=== PATIENT | female | born 1990 | race Caucasian/White ===

== ENCOUNTER 2016-07-15 15:34 | Emergency (ER) | payer SELFPAY ==
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
[2016-07-15] MEDS ORDERED: NEOMY SULF/POLYMYX B SULF/HC OTIC SUSP 10 ML AS ONE (17:54)
[2016-07-15] MEDS ORDERED: CEFTRIAXONE INJ 250 MG VIAL IM ONE (17:54)
[2016-07-15] MEDS ORDERED: OXYCODONE-ACETAMINOPHEN 5-325 MG TABLET PO ONE (17:55)
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
[2016-07-15] MEDS ORDERED: LIDOCAINE 1% INJ-PF (10 MG/ML) 30 ML SDV ONE (18:41)
[2016-07-15 18:55] VITALS: BP 152/89
== END 2016-07-15 18:49 | disposition home or self-care (01) ==
LOC: ER 15:34
DX: H60.392 Other infective otitis externa, left ear (principal); H92.02 Otalgia, left ear; F17.210 Nicotine dependence, cigarettes, uncomplicated; Z86.14 Personal history of Methicillin resistant Staphylococcus aureus infection; Z90.49 Acquired absence of other specified parts of digestive tract
CPT/HCPCS: 99282; J3490; J0696

== ENCOUNTER 2016-10-11 08:25 | Emergency (ER) | payer SELFPAY ==
[2016-10-11 08:31] VITALS: BP 134/94
[2016-10-11] MEDS ORDERED: AMOXICILLIN TRIHYDRATE 500 MG CAPSULE PO ONE (09:09)
[2016-10-11] MEDS ORDERED: CIPROFLOXACIN-HC OTIC SUSP 10 ML AS ONE (09:09)
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
== END 2016-10-11 09:30 | disposition home or self-care (01) ==
LOC: ER 08:25
DX: H60.502 Unspecified acute noninfective otitis externa, left ear (principal); H66.92 Otitis media, unspecified, left ear; S01.319A Laceration without foreign body of unspecified ear, initial encounter; X58.XXXA Exposure to other specified factors, initial encounter; K08.89 Other specified disorders of teeth and supporting structures; H92.03 Otalgia, bilateral; F17.210 Nicotine dependence, cigarettes, uncomplicated; Z71.6 Tobacco abuse counseling; Z91.048 Other nonmedicinal substance allergy status; Z91.040 Latex allergy status; Z86.14 Personal history of Methicillin resistant Staphylococcus aureus infection
CPT/HCPCS: 99282; J3490

== ENCOUNTER 2016-10-20 12:44 | Emergency (ER) | payer SELFPAY ==
[2016-10-20 12:51] VITALS: BP 144/109
[2016-10-20] MEDS ORDERED: OXYCODONE-ACETAMINOPHEN 5-325 MG TABLET PO ONE (13:17)
--- NOTE | 2016-10-20 13:19 | ER Document Report ---
ED Oral Problem - General Chief Complaint: Toothache Stated Complaint: FACIAL SWELLING/MOUTH PAIN Time Seen by Provider: 10/20/16 13:09 Mode of Arrival: Ambulatory Information source: Patient TRAVEL OUTSIDE OF THE [place] IN LAST 30 DAYS: No - HPI Patient complains to provider of: Swelling of face, Toothache Onset: This morning Onset: Gradual Quality of pain: Achy Severity: Moderate Pain Level: 3 Context: Fractured tooth Swollen jaw/face: Mild Associated symptoms: Dental decay, Facial pain, Jaw pain, Toothache Notes: Patient is a 25-year-old female who presents to the emergency room complaining of 2 broken teeth with pain and swelling as well as mild facial swelling that she first noted this morning, the teeth been broken for quite some time, she does report a foul taste in her mouth but no drainage, no fevers, she attempted to call [facility] but cannot get an appointment immediately and they told her to call back on Sunday to make an appointment she is currently taking amoxicillin for otitis media and Ciprodex drops for otitis externa - Related Data Allergies/Adverse Reactions: adhesive [Adhesive] Allergy (Intermediate, Verified 07/15/16 15:40) latex [Latex] Allergy (Intermediate, Verified 10/20/16 12:47) Past Medical History - General Information source: Patient - Social History Smoking Status: Current Every Day Smoker Family History: Arthritis, CAD, COPD, CVA, DM, Hyperlipidemia, Hypertension, Malignancy, Thyroid Disfunction Patient has suicidal ideation: No Patient has homicidal ideation: No Pulmonary Medical History: Reports: Hx Bronchitis, Hx Pneumonia Neurological Medical History: Reports: Hx Migraine Renal/ Medical History: Reports: Hx Ovarian Cysts. Denies: Hx Peritoneal Dialysis GI Medical History: Reports: Hx Gastroesophageal Reflux Disease Musculoskeltal Medical History: Reports Hx Musculoskeletal Deformity, Reports Hx Musculoskeletal Trauma Skin Medical History: Reports Hx Cellulitis, Reports Hx MRSA Psychiatric Medical History: Reports: Hx Anxiety, Hx Bipolar Disorder, Hx Depression, Hx Obsessive Compulsive Disorder Traumatic Medical History: Reports: Hx Fractures - correct that, Hx Traumatic Brain Injury Past Surgical History: Reports: Hx Abdominal Surgery - hernia epigastric, Hx Section - x2, Hx Cholecystectomy, Hx Dilation and Curettage, Hx Gynecologic Surgery - D&C, Hx Herniorrhaphy, Hx Inguinal Hernia, Hx Neurologic Surgery - Brain surgery for a TBI, Hx Oral Surgery - wisdom, Hx Orthopedic Surgery, Hx Tonsillectomy - Immunizations Immunizations up to date: Yes Hx Diphtheria, Pertussis, Tetanus Vaccination: No Review of Systems - Review of Systems Constitutional: No symptoms reported EENT: See HPI Cardiovascular: No symptoms reported Respiratory: No symptoms reported Gastrointestinal: No symptoms reported Genitourinary: No symptoms reported Female Genitourinary: No symptoms reported Musculoskeletal: No symptoms reported Skin: No symptoms reported Hematologic/Lymphatic: No symptoms reported Neurological/Psychological: No symptoms reported -: Yes All other systems reviewed and negative Physical Exam - Vital signs Vitals: Temp Pulse Resp BP Pulse Ox 98.4 F 102 H 18 144/109 H 90 L 10/20/16 12:48 10/20/16 12:48 10/20/16 12:48 10/20/16 12:48 10/20/16 12:48 - Notes Notes: - General General appearance: Appears well, Alert In distress: None - HEENT Head: Normocephalic, Atraumatic Eyes: Normal Conjunctiva: Normal Extraocular movements intact: Yes Eyelashes: Normal Pupils: PERRL - Respiratory Respiratory status: No respiratory distress - Cardiovascular Rhythm: Regular - Abdominal Inspection: Normal - Back Back: Normal - Extremities General upper extremity: Normal inspection General lower extremity: Normal inspection - Neurological Neuro grossly intact: Yes Orientation: AAOx4 [place] Coma Scale Eye Opening: Spontaneous [place] Coma Scale Verbal: Oriented [place] Coma Scale Motor: Obeys Commands [place] Coma Scale Total: 15 - Psychological Associated symptoms: Normal affect, Normal mood - Skin Skin Temperature: Warm Skin Moisture: Dry Skin Color: Normal - HEENT Mouth/Lips: Caries, Dental fracture Mucous membranes: Moist Teeth diagram: 1 - Dental fracture with pulp exposure, mild surrounding erythema and swelling 2 - Dental fracture, mild swelling and erythema surrounding Course - Re-evaluation Re-evalutation: 10/20/16 13:26 Patient with dental pain and likely dental infection, she was given a prescription for both penicillin and clindamycin, she was advised to fill the clindamycin prescription if she can afford it, if not for the penicillin prescription, follow-up with a dental provider or return if symptoms worsen - Vital Signs Vital signs: Temp Pulse Resp BP Pulse Ox 98.4 F 102 H 18 144/109 H 90 L 10/20/16 12:48 10/20/16 12:48 10/20/16 12:48 10/20/16 12:48 10/20/16 12:48 Discharge - Discharge Clinical Impression: Pain, dental Condition: Stable Disposition: HOME, SELF-CARE Instructions: [facility], Clindamycin ([facility]), Toothache ([facility]), Oral Narcotic Medication ([facility]), Penicillin V K ([facility]) Additional Instructions: Follow up with your primary care provider in one to 2 days. Return to the emergency room immediately if symptoms worsen or any additional concerns. Prescriptions: Clindamycin HCl [Cleocin 150 mg Capsule] 450 mg PO Q6 10 Days Oxycodone HCl/Acetaminophen [Percocet 5-325 mg Tablet] 1 - 2 tab PO ASDIR PRN # 20 tablet PRN Reason: Penicillin V Potassium [Penicillin Vk 500 mg Tablet] 500 mg PO TID #30 tablet
== END 2016-10-20 13:22 | disposition home or self-care (01) ==
LOC: ER 12:44
DX: K08.9 Disorder of teeth and supporting structures, unspecified (principal); R51 Headache; R68.84 Jaw pain; F17.200 Nicotine dependence, unspecified, uncomplicated; Z91.040 Latex allergy status; Z86.14 Personal history of Methicillin resistant Staphylococcus aureus infection; Z90.49 Acquired absence of other specified parts of digestive tract
CPT/HCPCS: 99282

== ENCOUNTER 2016-10-25 12:37 | Emergency (ER) | payer SELFPAY ==
--- NOTE | 2016-10-25 13:20 | ER Document Report ---
HPI - HPI Patient complains to provider of: left ear pain Pain Level: 3 Context: 25 yo female c/o left ear pain x 3 days. Associated Symptoms: Earache, Headache, Other - toothache Exacerbated by: Denies - ROS Systems Reviewed and Negative: Yes All other systems reviewed and negative - REPRODUCTIVE Reproductive: DENIES: : - DERM Skin Color: Normal Past Medical History - General Information source: Patient - Social History Smoking Status: Current Every Day Smoker Frequency of alcohol use: None Drug Abuse: None Lives with: Family Family History: Arthritis, CAD, COPD, CVA, DM, Hyperlipidemia, Hypertension, Malignancy, Thyroid Disfunction Patient has suicidal ideation: No Patient has homicidal ideation: No Pulmonary Medical History: Reports: Hx Bronchitis, Hx Pneumonia Neurological Medical History: Reports: Hx Migraine Renal/ Medical History: Reports: Hx Ovarian Cysts. Denies: Hx Peritoneal Dialysis GI Medical History: Reports: Hx Gastroesophageal Reflux Disease Musculoskeltal Medical History: Reports Hx Musculoskeletal Deformity, Reports Hx Musculoskeletal Trauma Skin Medical History: Reports Hx Cellulitis, Reports Hx MRSA Psychiatric Medical History: Reports: Hx Anxiety, Hx Bipolar Disorder, Hx Depression, Hx Obsessive Compulsive Disorder Traumatic Medical History: Reports: Hx Fractures - correct that, Hx Traumatic Brain Injury Past Surgical History: Reports: Hx Abdominal Surgery - hernia epigastric, Hx Section - x2, Hx Cholecystectomy, Hx Dilation and Curettage, Hx Gynecologic Surgery - D&C, Hx Herniorrhaphy, Hx Inguinal Hernia, Hx Neurologic Surgery - Brain surgery for a TBI, Hx Oral Surgery - wisdom, Hx Orthopedic Surgery, Hx Tonsillectomy - Immunizations Immunizations up to date: Yes Hx Diphtheria, Pertussis, Tetanus Vaccination: No Vertical Provider Document - CONSTITUTIONAL Agree With Documented VS: Yes - INFECTION CONTROL TRAVEL OUTSIDE OF THE [place] IN LAST 30 DAYS: No COUNTRY TRAVELED TO/FROM: [facility] - HEENT HEENT: Atraumatic Notes: left EAC edematous, erythematous with small amount purulent exudate. + painful pinna and tragus, mastoid nontender. + preauricular tenderness - NECK Neck: Normal Inspection, Supple - RESPIRATORY Respiratory: Breath Sounds Normal, No Respiratory Distress - CARDIOVASCULAR Cardiovascular: Regular Rate, Regular Rhythm - MUSCULOSKELETAL/EXTREMETIES Musculoskeletal/Extremeties: MAEW, FROM - NEURO Level of Consciousness: Awake, Alert, Appropriate - DERM Integumentary: Warm, Dry Discharge - Discharge Clinical Impression: Acute otitis externa of left ear Qualifiers: Otitis externa type: unspecified type Qualified Code(s): H60.502 - Unspecified acute noninfective otitis externa, left ear Condition: Stable Disposition: HOME, SELF-CARE Instructions: Use of Ear Drops ([facility]), Oral Narcotic Medication ([facility]) Additional Instructions: use ear drops as prescribed keep ear completely dry x 7 days follow up with primary care if symptoms persist Prescriptions: Ciprofloxacin HCl/Dexameth [Ciprodex Otic Suspension Drops] 3 drop LFT_EAR BID # 1 bottle Oxycodone HCl/Acetaminophen [Percocet 5-325 mg Tablet] 1 - 2 tab PO ASDIR PRN # 15 tablet PRN Reason:
== END 2016-10-25 13:55 | disposition home or self-care (01) ==
LOC: ER 12:37
DX: H60.502 Unspecified acute noninfective otitis externa, left ear (principal); H92.02 Otalgia, left ear; R51 Headache; K08.89 Other specified disorders of teeth and supporting structures; F17.200 Nicotine dependence, unspecified, uncomplicated
CPT/HCPCS: 99282

== ENCOUNTER 2016-11-09 19:34 | Emergency (ER) | payer SELFPAY | END 2016-11-09 20:04 | disposition left against medical advice (07) | LOC: ER 19:34 | DX: Z53.9 Procedure and treatment not carried out, unspecified reason (principal); H92.09 Otalgia, unspecified ear ==

== ENCOUNTER 2016-11-10 03:07 | Emergency (ER) | payer SELFPAY ==
--- NOTE | 2016-11-10 06:38 | ER Document Report ---
ED General - General Chief Complaint: Ear Pain Stated Complaint: EAR PAIN Time Seen by Provider: 11/10/16 06:17 Mode of Arrival: Ambulatory Information source: Patient Notes: 25 yr old female presents with chronic otitis media. Pt notes she has been seen 5 times in the past month for ear infections, , denies any fevers admits to pain , drainage. Pt noted that symptoms improve with antibiotics but then reappear. TRAVEL OUTSIDE OF THE [place] IN LAST 30 DAYS: No COUNTRY TRAVELED TO[facility]FROM: [facility] Onset: Other - 1 month duration Onset/Duration: Intermittent Quality of pain: Sharp Severity: Moderate Pain Level: 2 Associated symptoms: Earache Exacerbated by: Denies Relieved by: Denies Similar symptoms previously: Yes Recently seen / treated by doctor: Yes - Related Data Allergies/Adverse Reactions: adhesive [Adhesive] Allergy (Intermediate, Verified 10/25/16 12:48) latex [Latex] Allergy (Intermediate, Verified 10/25/16 12:48) Past Medical History - Social History Smoking Status: Current Every Day Smoker Cigarette use (# per day): Yes Chew tobacco use (# tins/day): No Smoking Education Provided: No Family History: Arthritis, CAD, COPD, CVA, DM, Hyperlipidemia, Hypertension, Malignancy, Thyroid Disfunction Patient has suicidal ideation: No Patient has homicidal ideation: No Pulmonary Medical History: Reports: Hx Bronchitis, Hx Pneumonia Neurological Medical History: Reports: Hx Migraine Renal/ Medical History: Reports: Hx Ovarian Cysts. Denies: Hx Peritoneal Dialysis GI Medical History: Reports: Hx Gastroesophageal Reflux Disease Musculoskeltal Medical History: Reports Hx Musculoskeletal Deformity, Reports Hx Musculoskeletal Trauma Skin Medical History: Reports Hx Cellulitis, Reports Hx MRSA Psychiatric Medical History: Reports: Hx Anxiety, Hx Bipolar Disorder, Hx Depression, Hx Obsessive Compulsive Disorder Traumatic Medical History: Reports: Hx Fractures - correct that, Hx Traumatic Brain Injury Past Surgical History: Reports: Hx Abdominal Surgery - hernia epigastric, Hx Section - x2, Hx Cholecystectomy, Hx Dilation and Curettage, Hx Gynecologic Surgery - D&C, Hx Herniorrhaphy, Hx Inguinal Hernia, Hx Neurologic Surgery - Brain surgery for a TBI, Hx Oral Surgery - wisdom, Hx Orthopedic Surgery, Hx Tonsillectomy - Immunizations Immunizations up to date: Yes Hx Diphtheria, Pertussis, Tetanus Vaccination: No Review of Systems - Review of Systems Notes: REVIEW OF SYSTEMS: CONSTITUTIONAL : Denies fever, chills, or sweats. Denies recent illness. EENT: Admits to bilateral ear pain drainage CARDIOVASCULAR: Denies chest pain. Denies palpitations or racing or irregular heart beat. Denies ankle edema. RESPIRATORY: Denies cough, cold, or chest congestion. Denies shortness of breath, difficulty breathing, or wheezing. GASTROINTESTINAL: Denies abdominal pain or distention. Denies nausea, vomiting , or diarrhea. Denies blood in vomitus, stools, or per rectum. Denies black, tarry stools. Denies constipation. GENITOURINARY: Denies difficulty urinating, painful urination, burning, frequency, blood in urine, or discharge. FEMALE GENITOURINARY: Denies vaginal bleeding, heavy or abnormal periods, irregular periods. Denies vaginal discharge or odor. MUSCULOSKELETAL: Denies back or neck pain or stiffness. Denies joint pain or swelling. SKIN: Denies rash, lesions or sores. HEMATOLOGIC : Denies easy bruising or bleeding. LYMPHATIC: Denies swollen, enlarged glands. NEUROLOGICAL: Denies confusion or altered mental status. Denies passing out or loss of consciousness. Denies dizziness or lightheadedness. Denies headache. Denies weakness or paralysis or loss of use of either side. Denies problems with gait or speech. Denies sensory loss, numbness, or tingling. Denies seizures. PSYCHIATRIC: Denies anxiety or stress. Denies depression, suicidal ideation, or homicidal ideation. ALL OTHER SYSTEMS REVIEWED AND NEGATIVE. PHYSICAL EXAMINATION: GENERAL: Well-appearing, well-nourished and in no acute distress. HEAD: Atraumatic, normocephalic. EYES: Pupils equal round and reactive to light, extraocular movements intact, conjunctiva are normal. ENT: Bilateral otitis media with mild swelling of the ear canals. There is drainage noted from the left TM bloody. Patient has no mastoid tenderness NECK: Normal range of motion, supple without lymphadenopathy LUNGS: Breath sounds clear to auscultation bilaterally and equal. No wheezes rales or rhonchi. HEART: Regular rate and rhythm without murmurs ABDOMEN: Soft, nontender, nondistended abdomen. No guarding, no rebound. No masses appreciated. Female : deferred Musculoskeletal: Normal range of motion, no pitting or edema. No cyanosis. NEUROLOGICAL: Cranial nerves grossly intact. Normal speech, normal gait. Normal sensory, motor exams PSYCH: Normal mood, normal affect. SKIN: Warm, Dry, normal turgor, no rashes or lesions noted. Dictation was performed using [employer] voice recognition software Physical Exam - Vital signs Vitals: Temp Pulse Resp BP Pulse Ox 98.4 F 103 H 14 149/102 H 98 11/10/16 03:10 11/10/16 03:10 11/10/16 03:10 11/10/16 03:10 11/10/16 03:10 Course - Re-evaluation Re-evalutation: 11/10/16 06:35 Pt has been on clinda, cipro, ciprodex, amoxicillin 11/10/16 06:37 Patient has been made aware that I insisted she see a ENT specialist as she continues to have these ear infections, I will give her follow-up, I will start her on a different antibiotic and pain control otherwise she must be seen by specialist to determine why she is having so many ear infections as this can lead to sepsis, septicemia, mastoiditis, brain abscesses and other life- threatening issues 11/10/16 10:27 After performing a Medical Screening Examination, I estimate there is LOW risk for CENTRAL CORD SYNDROME, EPIDURAL MASS LESION, SEVERE SPINAL STENOSIS, ARTERIAL DISSECTION, MENINGITIS, or ACUTE CORONARY SYNDROME, thus I consider the discharge disposition reasonable. I have reevaluated this patient multiple times and no significant life threatening changes are noted. The patient and I have discussed the diagnosis and risks, and we agree with discharging home to follow-up on an outpatient basis with the understanding that symptoms and presentations can change. We also discussed returning to the Emergency Department immediately if new or worsening symptoms occur. We have discussed the symptoms which are most concerning (e.g., saddle anesthesia, urinary or bowel incontinence or retention, changing or worsening pain) that necessitate immediate return. - Vital Signs Vital signs: Temp Pulse Resp BP Pulse Ox 98.4 F 89 18 145/90 H 99 11/10/16 03:10 11/10/16 06:49 11/10/16 06:49 11/10/16 06:49 11/10/16 06:49 Discharge - Discharge Clinical Impression: Otitis media Qualifiers: Otitis media type: suppurative Chronicity: chronic Laterality: bilateral Suppurative otitis media location: unspecified location Qualified Code(s): H66.3X3 - Other chronic suppurative otitis media, bilateral Ear pain Qualifiers: Laterality: bilateral Qualified Code(s): H92.03 - Otalgia, bilateral Condition: Stable Disposition: HOME, SELF-CARE Additional Instructions: Please contact the following office for an appointment tomorrow or returm immediately if there are any other concerns [facility] Address: [address] [place] [address] Prescriptions: Oxycodone HCl/Acetaminophen [Percocet 5-325 mg Tablet] 1 - 2 tab PO ASDIR PRN # 15 tablet PRN Reason: Sulfamethoxazole/Trimethoprim [Bactrim Ds Tablet] 2 each PO BID #40 tablet
[2016-11-10 06:49] VITALS: BP 145/90
== END 2016-11-10 06:49 | disposition home or self-care (01) ==
LOC: ER 03:07
DX: H66.3X3 Other chronic suppurative otitis media, bilateral (principal); H92.03 Otalgia, bilateral; F17.210 Nicotine dependence, cigarettes, uncomplicated; Z91.040 Latex allergy status; Z90.49 Acquired absence of other specified parts of digestive tract; Z87.820 Personal history of traumatic brain injury
CPT/HCPCS: 99282

== ENCOUNTER 2016-12-01 05:52 | Emergency (ER) | payer SELFPAY ==
[2016-12-01] MEDS ORDERED: IBUPROFEN 600 MG TABLET PO ONE (06:34)
--- NOTE | 2016-12-01 06:37 | ER Document Report ---
ED General Pain - General Chief Complaint: Rib Pain Stated Complaint: CHEST PAIN Time Seen by Provider: 12/01/16 06:22 Notes: Patient is a 26-year-old female, past medical history chronic pain, presents with 1 day of left lateral chest wall pain that is worse when she takes a deep breath or pushes on her chest wall. She tried 6 Gas-X pills without much relief of her symptoms. She denies shortness of breath, leg swelling, estrogen use, hemoptysis, cough, fevers, rash, nausea, vomiting or abdominal pain. TRAVEL OUTSIDE OF THE [place] IN LAST 30 DAYS: No COUNTRY TRAVELED TO/FROM: [facility] - Related Data Allergies/Adverse Reactions: adhesive [Adhesive] Allergy (Intermediate, Verified 10/25/16 12:48) latex [Latex] Allergy (Intermediate, Verified 10/25/16 12:48) Past Medical History - General Information source: Patient - Social History Smoking Status: Current Every Day Smoker Drug Abuse: Heroin Family History: Arthritis, CAD, COPD, CVA, DM, Hyperlipidemia, Hypertension, Malignancy, Thyroid Disfunction Patient has suicidal ideation: No Patient has homicidal ideation: No Pulmonary Medical History: Reports: Hx Bronchitis, Hx Pneumonia Neurological Medical History: Reports: Hx Migraine Renal/ Medical History: Reports: Hx Ovarian Cysts. Denies: Hx Peritoneal Dialysis GI Medical History: Reports: Hx Gastroesophageal Reflux Disease Musculoskeltal Medical History: Reports Hx Musculoskeletal Deformity, Reports Hx Musculoskeletal Trauma Skin Medical History: Reports Hx Cellulitis, Reports Hx MRSA Psychiatric Medical History: Reports: Hx Anxiety, Hx Bipolar Disorder, Hx Depression, Hx Obsessive Compulsive Disorder Traumatic Medical History: Reports: Hx Fractures - correct that, Hx Traumatic Brain Injury Past Surgical History: Reports: Hx Abdominal Surgery - hernia epigastric, Hx Section - x2, Hx Cholecystectomy, Hx Dilation and Curettage, Hx Gynecologic Surgery - D&C, Hx Herniorrhaphy, Hx Inguinal Hernia, Hx Neurologic Surgery - Brain surgery for a TBI, Hx Oral Surgery - wisdom, Hx Orthopedic Surgery, Hx Tonsillectomy - Immunizations Immunizations up to date: Yes Hx Diphtheria, Pertussis, Tetanus Vaccination: No Review of Systems - Review of Systems Notes: REVIEW OF SYSTEMS: CONSTITUTIONAL: -fevers, -chills EENT: -eye pain, -difficulty swallowing, -nasal congestion CARDIOVASCULAR: +chest pain, -syncope. RESPIRATORY: -cough, -SOB GASTROINTESTINAL: -abdominal pain, - nausea, -vomiting, -diarrhea GENITOURINARY: -dysuria, -hematuria MUSCULOSKELETAL: -back pain, -neck pain SKIN: -rash or skin lesions. HEMATOLOGIC: -easy bruising or bleeding. LYMPHATIC: -swollen, enlarged glands. NEUROLOGICAL: -altered mental status or loss of consciousness, -headache, - neurologic symptoms PSYCHIATRIC: -anxiety, -depression. ALL OTHER SYSTEMS REVIEWED AND NEGATIVE. Physical Exam - Vital signs Vitals: Temp Pulse Resp BP Pulse Ox 97.9 F 87 20 125/75 99 12/01/16 05:54 12/01/16 05:54 12/01/16 05:54 12/01/16 05:54 12/01/16 05:54 - Notes Notes: PHYSICAL EXAMINATION: GENERAL: Well-appearing, well-nourished and in no acute distress. HEAD: Atraumatic, normocephalic. EYES: Pupils equal round and reactive to light, extraocular movements intact, sclera anicteric, conjunctiva are normal. ENT: nares patent, oropharynx clear without exudates. Moist mucous membranes. NECK: Normal range of motion, supple without lymphadenopathy LUNGS: Breath sounds clear to auscultation bilaterally and equal. No wheezes rales or rhonchi. HEART: Regular rate and rhythm without murmurs. Tenderness over left lateral chest wall. ABDOMEN: Soft, nontender, normoactive bowel sounds. No guarding, no rebound. No masses appreciated. EXTREMITIES: Normal range of motion, no pitting or edema. No cyanosis. NEUROLOGICAL: Cranial nerves grossly intact. Normal speech, normal gait. Normal sensory and motor exams. PSYCH: Normal mood, normal affect. SKIN: Warm, Dry, normal turgor, no rashes or lesions noted. Course - Re-evaluation Re-evalutation: Pt is PERC negative. HEART score is 1. X-ray and EKG did not show any concerning abnormalities. Symptoms consistent with chest wall strain at this time. Given strict instructions to follow-up with her primary care physician and return if any worsening pain. - Vital Signs Vital signs: Temp Pulse Resp BP Pulse Ox 97.9 F 87 20 125/75 99 12/01/16 05:54 12/01/16 05:54 12/01/16 05:54 12/01/16 05:54 12/01/16 05:54 - Diagnostic Test Radiology reviewed: Image reviewed, Reports reviewed Radiology results interpreted by me: CXR: NAD - EKG Interpretation by Me EKG shows normal: Sinus rhythm, [place], Intervals, QRS Complexes, ST-T Waves Rate: Normal Discharge - Discharge Clinical Impression: Chest pain Qualifiers: Chest pain type: unspecified Qualified Code(s): R07.9 - Chest pain, unspecified Chest wall muscle strain Qualifiers: Encounter type: initial encounter Qualified Code(s): S29.011A - Strain of muscle and tendon of front wall of thorax, initial encounter Condition: Stable Disposition: HOME, SELF-CARE Additional Instructions: CHEST PAIN OF UNCLEAR CAUSE: The exact cause of your chest pain isn't clear. Fortunately, there is no evidence of a dangerous medical condition. Further testing may be required to find the source of the pain. Most often, we find that this pain is coming from the chest wall -- the muscles or rib joints in the chest. But chest pain can come from the lung and lung lining, the esophagus, the heart valves or heart lining, and even the stomach or gallbladder. Rest. Eat lightly until the pain is gone. We may prescribe medicine for pain and inflammation. You should call the physician immediately if the pain radiates to the shoulder, jaw or arms; if you start to run a fever or develop a cough; or if you develop shortness of breath, or other new or alarming symptoms. NORMAL EXAM AND WORKUP: At this time, your examination and workup show no significant abnormality. No significant abnormal physical findings were noted. All laboratory, EKG, and imaging (x-ray, CT scans, ultrasound) studies that were ordered show no significant abnormality. Although your examination and all studies that were ordered showed no significant abnormal finding, there are no examinations and no studies that are 100% accurate. There is always the possibility that some abnormality could exist and not be detected with physical examination or within the limits and capabilities of laboratory and other studies. You should return or follow up as you were instructed on your visit today for further evaluation if your symptoms do not resolve. CHEST WALL PAIN: Your chest pain may be coming from the chest wall. This is often caused by straining the muscles or joints in the chest during physical activity, direct trauma, coughing, or vigorous vomiting. Persons with arthritis are especially prone to this type of pain, due to inflammation of the cartilage joints near the breast bone. Occasionally, no cause can be found. Rest from strenuous physical activity. This kind of chest pain is usually made worse by movement of the chest. Depending on the symptoms, we may prescribe medicine for pain, muscle relaxation, and antiinflammatory effects. If the pain is new, and seems to be due to muscle strain, cold packs can help. Otherwise, apply gentle warmth to the painful area for 15 minutes every hour or two. You should call contact the doctor immediately if things change. Further evaluation is needed if you develop a fever or cough, if the nature of the pain changes, or if you become short of breath. ACID REFLUX DISEASE (GERD): Gastro-Esophageal Reflux Disease (GERD) is caused by stomach acid refluxing back up into the esophagus. The valve at the end of the esophagus may be weak. This is common in persons with a hiatal hernia. GERD symptoms can include indigestion, chest pain, heartburn, or food "sticking." Certain foods, alcohol, and aspirin can make GERD worse. Treatment depends on the severity. Usually, antacids or acid-suppressing medicines are used. When the esophagus is acutely inflamed, the physician will often prescribe membrane-protective drugs such as Carafate. Some patients benefit from medication such as Reglan that tightens the valve at the top of the stomach. Avoid those foods that bring on your symptoms. For many people, these foods are coffee, chocolate, onions, garlic, and carbonated drinks. Don't use alcohol, aspirin, caffeine, or tobacco. Don't eat late at night -- within 4 hours of bedtime. Don't over-eat. If necessary, elevate the head of your bed about 4 inches so that stomach acid will not roll up into your esophagus. Call the doctor if you develop severe chest pain, inability to swallow fluids, fever, or worsening symptoms. FOLLOW-UP CARE: If you have been referred to a physician for follow-up care, call the physician s office for an appointment as you were instructed or within the next two days. If you experience worsening or a significant change in your symptoms, notify the physician immediately or return to the Emergency Department at any time for re-evaluation.
--- NOTE | 2016-12-01 07:55 | RADIOLOGY REPORT (SQ) ---
EXAM DESCRIPTION: CHEST PA/LAT COMPLETED DATE/TIME: 12/01/2016 7:40 am REASON FOR STUDY: pain with deep breath COMPARISON: 04/29/2015 EXAM PARAMETERS: NUMBER OF VIEWS: two views TECHNIQUE: Digital Frontal and Lateral radiographic views of the chest acquired. RADIATION DOSE: NA LIMITATIONS: none FINDINGS: LUNGS AND PLEURA: No opacities, masses or pneumothorax. No pleural effusion. MEDIASTINUM AND HILAR STRUCTURES: No masses or contour abnormalities. HEART AND VASCULAR STRUCTURES: Heart normal size. No evidence for failure. BONES: No acute findings. HARDWARE: None in the chest. OTHER: No other significant finding. IMPRESSION: NO SIGNIFICANT RADIOGRAPHIC FINDING IN THE CHEST. TECHNICAL DOCUMENTATION: JOB ID: [id number] [employer]- All Rights Reserved
[2016-12-01 08:11] VITALS: BP 113/76
--- NOTE | 2016-12-01 12:19 | EKG REPORT ---
SEVERITY:- NORMAL ECG - SINUS RHYTHM : Confirmed by: Krissy Burt MD 01-Dec-2016 12:19:12
== END 2016-12-01 08:11 | disposition home or self-care (01) ==
LOC: ER 05:52
DX: S29.011A Strain of muscle and tendon of front wall of thorax, initial encounter (principal); X58.XXXA Exposure to other specified factors, initial encounter; F17.200 Nicotine dependence, unspecified, uncomplicated; Z87.01 Personal history of pneumonia (recurrent); Z82.49 Family history of ischemic heart disease and other diseases of the circulatory system; Z91.048 Other nonmedicinal substance allergy status; Z91.040 Latex allergy status
CPT/HCPCS: 71020; 93005; 93010; 99284

== ENCOUNTER 2016-12-12 09:19 | Inpatient (IN) | payer SELFPAY ==
[2016-12-12] MEDS ORDERED: CLINDAMYCIN 600 MG/D5W RTU 50 ML IV ONE (09:55)
[2016-12-12] MEDS ORDERED: ACETAMINOPHEN 325 MG TABLET PO ONE (09:55)
--- NOTE | 2016-12-12 09:57 | ER Document Report ---
HPI - HPI Patient complains to provider of: hand pain Onset: Yesterday Onset/Duration: Gradual Quality of pain: Sharp Pain Level: 3 Context: Patient presents complaining of dental pain for the past 3 days. Patient also reports right hand and wrist pain with swelling that started yesterday. Patient denies any fever. Patient states that she does shoot heroin up and last injected into her hand 10 days ago. Pt is newly diagnosed as and suspects she is approximately 6 wks along. Patient denies any fever. Associated Symptoms: Other - r hand pain and swelling, dental pain. denies: Fever Exacerbated by: Movement Relieved by: Denies Similar symptoms previously: Yes - dental pain Recently seen / treated by doctor: No - ROS ROS below otherwise negative: Yes Systems Reviewed and Negative: Yes All other systems reviewed and negative - CONSTITUTIONAL Constitutional: DENIES: Fever, Chills - EENT Notes: dental pain - CARDIOVASCULAR Cardiovascular: DENIES: Chest pain - RESPIRATORY Respiratory: DENIES: Trouble Breathing, Coughing - GASTROINTESTINAL Gastrointestinal: DENIES: Abdominal Pain, Nausea, Patient vomiting - REPRODUCTIVE Reproductive: DENIES: : - MUSCULOSKELETAL Musculoskeletal: REPORTS: Extremity pain, Swelling - DERM Skin Color: Erythema Skin Problems: Puncture Wound - multiple puncture wounds to dorsal aspect of right hand and to right antecubital area <ALIZE MONTES - Last Filed: 12/12/16 16:52> Past Medical History - General Information source: Patient Last Menstrual Period: preg ?6 wks - Social History Smoking Status: Current Every Day Smoker Frequency of alcohol use: None Drug Abuse: Cocaine, Heroin Occupation: none Family History: Arthritis, CAD, COPD, CVA, DM, Hyperlipidemia, Hypertension, Malignancy, Thyroid Disfunction Patient has suicidal ideation: No Pulmonary Medical History: Reports: Hx Bronchitis, Hx Pneumonia Neurological Medical History: Reports: Hx Migraine Endocrine Medical History: Denies: Hx Diabetes Mellitus Type 1, Hx Diabetes Mellitus Type 2 Renal/ Medical History: Reports: Hx Ovarian Cysts. Denies: Hx Peritoneal Dialysis GI Medical History: Reports: Hx Gastroesophageal Reflux Disease Musculoskeltal Medical History: Reports Hx Musculoskeletal Deformity, Reports Hx Musculoskeletal Trauma Skin Medical History: Reports Hx Cellulitis, Reports Hx MRSA Psychiatric Medical History: Reports: Hx Anxiety, Hx Bipolar Disorder, Hx Depression, Hx Obsessive Compulsive Disorder Traumatic Medical History: Reports: Hx Fractures - correct that, Hx Traumatic Brain Injury Infectious Medical History: Reports: Hx Hepatitis - ?hep c Past Surgical History: Reports: Hx Section - x2, Hx Cholecystectomy, Hx Dilation and Curettage, Hx Gynecologic Surgery - D&C, Hx Herniorrhaphy, Hx Inguinal Hernia, Hx Neurologic Surgery - Brain surgery for a TBI, Hx Oral Surgery - wisdom, Hx Orthopedic Surgery, Hx Tonsillectomy - Immunizations Immunizations up to date: Yes Hx Diphtheria, Pertussis, Tetanus Vaccination: No <ALIZE MONTES - Last Filed: 12/12/16 16:52> Vertical Provider Document - CONSTITUTIONAL Agree With Documented VS: Yes Exam Limitations: No Limitations General Appearance: WD/WN, No Apparent Distress - INFECTION CONTROL TRAVEL OUTSIDE OF THE [place] IN LAST 30 DAYS: No COUNTRY TRAVELED TO/FROM: [facility] HEENT: Normocephalic. negative: Pharyngeal Exudate, Pharyngeal Tenderness, Pharyngeal Erythema, Tympanic Membrane Red, Tympanic Membrane Bulging Mouth Diagram: 1 - dental decay, pointing small abscess to gingiva Notes: scaring to forehead from previous head trauma - NECK Neck: Normal Inspection, Supple. negative: Lymphadenopathy-Left, Lymphadenopathy-Right - RESPIRATORY Respiratory: Breath Sounds Normal, No Respiratory Distress, Chest Non-Tender - CARDIOVASCULAR Cardiovascular: Regular Rate, Regular Rhythm, No Murmur Pulses: Normal: Radial - BACK Back: Normal Inspection - MUSCULOSKELETAL/EXTREMETIES Musculoskeletal/Extremeties: Tender - right hand, right wrist tenderness with overlying erythema. Pt holding right wrist slightly flexed in a position of comfort., Edema - 2+edema to r wrist. negative: Eccymosis Notes: Scarring to the medial aspect of the left upper extremity - NEURO Level of Consciousness: Awake, Alert, Appropriate Motor/Sensory: No Motor Deficit - DERM Integumentary: Warm, Dry Notes: erythema and warmth overlying the dorsal aspect of right hand extending up her distal forearm and to radial, volar aspect of right wrist. Pt with multiple track schilling to dorsal aspect of right hand and right antecubital area <ALIZE MONTES - Last Filed: 12/12/16 16:52> Course - Vital Signs Vital signs: Temp Pulse Resp BP Pulse Ox 98.4 F 88 18 132/84 H 98 12/12/16 09:27 12/12/16 09:27 12/12/16 09:27 12/12/16 09:27 12/12/16 09:27 - Laboratory Result Diagrams: 12/12/16 10:30 12/12/16 10:30 Laboratory results interpreted by me: 12/12/16 10:30 Sodium 136.2 L <PAUL CABRERA - Last Filed: 12/12/16 11:44> - Re-evaluation Re-evalutation: 12/12/16 11:[address] cabrera, dr cabrera to bedside. Recommends joint aspiration and likely admission vs transfer based on results of joint aspiration and ortho coverage 12/12/16 11:47 Dr Cabrera to bedside, right wrist joint aspiration attempted, unable to obtain synovial fluid aspiration. Advises transfer to facility with orthopedic coverage, as we will have no ortho coverage until 12/18/16. 12/12/16 12:[address] Jose Manuel Ramirez coronary clinical specialist at [facility] who agrees to accept patient for transfer. Recommends ER to ER transfer. Report given to Dr. Alvarado in the emergency department. Transfer center advises that Dr. Alvarado page Dr. Ramirez once patient presents to the ER. 12/12/16 12:45 Dr Cabrera states that there was an email requesting all ortho transfers to be discussed with hospitalist as well as faculty administrator regional coordinator prior to transfer. Call placed to hospital faculty administrator regional coordinator, David Antonio, to discuss plan for orthopedic transfer. David Antonio [facility] so pt may be treated appropriately. 12/12/16 12:[address] Benedict, agrees that pt needs to be transferred to a facility that has orthopedic coverage on, especially given that there will be no orthopedic coverage here until 12/18/16 per hospital plating operator. 12/12/16 13:10 attempted to have plating operator contact Dr Rivera (who is not presently regional coordinator). [employer] Helper states there was no answer on cell, he is not in the OR or his office today. Dr Cabrera agrees with plan for transfer. 12/12/16 13:45 Dr Rivera returned call stating that he picked up today and tomorrow call shifts and is regional coordinator. Dr Rivera advises mri of extremity and wants called back with results. Dr Rivera states that results of MRI will determine if pt is an orthopedic or hospitalist admission. Dr Rivera states he will notify plating operator of call schedule changes. paper conservator and Dr Cabrera updated. Pt does not need to be NPO at this time. 12/12/16 16:00 Results of patient's MRI test with Dr. Rivera, patient is having hospitalist admit patient and he will consult on patient. Recommends IV antibiotics at this time. consulted with dr Benedict who advises consultation with Dr Jesus for admission 12/12/16 16:[address] Jesus who agrees to accept pt for admission - Laboratory Result Diagrams: 12/12/16 10:30 12/12/16 10:30 Laboratory results interpreted by me: 12/12/16 13:12 Labs- Entire Visit 12/12/16 12/12/16 10:30 10:30 WBC 7.2 RBC 4.71 Hgb 13.8 Hct 41.4 MCV 88 MCH 29.3 MCHC 33.4 RDW 12.7 Plt Count 153 Seg Neutrophils % 72.3 Lymphocytes % 21.2 Monocytes % 5.5 Eosinophils % 0.7 Basophils % 0.3 Absolute Neutrophils 5.2 Absolute Lymphocytes 1.5 Absolute Monocytes 0.4 Absolute Eosinophils 0.1 Absolute Basophils 0.0 Sodium 136.2 L Potassium 4.5 Chloride 106 Carbon Dioxide 22 Anion Gap 8 BUN 8 Creatinine 0.58 Est GFR ( Amer) > 60 Est GFR (Non-Af Amer) > 60 Glucose 96 Calcium 8.9 Total Bilirubin 0.6 Direct Bilirubin 0.4 Indirect Bilirubin Not Reportable Neonat Total Bilirubin Not Reportable AST 17 ALT 23 Alkaline Phosphatase 58 Total Protein 6.8 Albumin 3.8 12/12/16 16:16 Labs- Entire Visit 12/12/16 12/12/16 10:30 10:30 WBC 7.2 RBC 4.71 Hgb 13.8 Hct 41.4 MCV 88 MCH 29.3 MCHC 33.4 RDW 12.7 Plt Count 153 Seg Neutrophils % 72.3 Lymphocytes % 21.2 Monocytes % 5.5 Eosinophils % 0.7 Basophils % 0.3 Absolute Neutrophils 5.2 Absolute Lymphocytes 1.5 Absolute Monocytes 0.4 Absolute Eosinophils 0.1 Absolute Basophils 0.0 Sodium 136.2 L Potassium 4.5 Chloride 106 Carbon Dioxide 22 Anion Gap 8 BUN 8 Creatinine 0.58 Est GFR ( Amer) > 60 Est GFR (Non-Af Amer) > 60 Glucose 96 Calcium 8.9 Total Bilirubin 0.6 Direct Bilirubin 0.4 Indirect Bilirubin Not Reportable Neonat Total Bilirubin Not Reportable AST 17 ALT 23 Alkaline Phosphatase 58 Total Protein 6.8 Albumin 3.8 - Diagnostic Test Radiology reviewed: Reports reviewed <ALIZE MONTES - Last Filed: 12/12/16 16:52> Procedures - Joint Aspiration Right Wrist Time completed: 11:40 - unable to aspirate any synovial fluid. pt prepped sterilely. tried to enter jnt dorsally from ulnar aspect but pt unable to deviate hand to radial side to open jnt. after multiple attempts terminated procedure. 4cc's of plain lido was used. Consent obtained: Yes Joint aspiration pre-procedure: Betadine prep applied Anesthetic type: 1% Lidocaine mL's of anesthetic: 4 Needle size: 25 Number of attempts: 2 Complications: No <PAUL CABRERA - Last Filed: 12/12/16 11:44> - Incision and Drainage Left Type: Simple Incision Method: Incision made with needle Amount/type of drainage: mod amount of purulent drainage from gingival abscess Mouth/Teeth picture: 1 - gingival abscess- site of I&D <ALIZE MONTES - Last Filed: 12/12/16 16:52> Discharge <PAUL CABRERA - Last Filed: 12/12/16 11:44> - Discharge Admitting Provider: Hospitalist Unit Admitted: Medical Floor <ALIZE MONTES - Last Filed: 12/12/16 16:52> - Discharge Clinical Impression: Cellulitis of hand, Cellulitis of wrist, Dental abscess, IV drug user Condition: Stable
[2016-12-12 10:52] LABS: ABSOLUTE EOSINOPHILS # (AUTO) 0.1 10^3/uL (0.0-0.6); ABSOLUTE LYMPHOCYTES (AUTO) 1.5 10^3/uL (0.5-4.7); ABSOLUTE MONOCYTES (AUTO) 0.4 10^3/uL (0.1-1.4); ABSOLUTE NEUT (AUTO) 5.2 10^3/uL (1.7-8.2); BASOPHILS % (AUTO) 0.3 % (0-2); EOSINOPHILS % (AUTO) 0.7 % (0-6); HEMATOCRIT 41.4 % (36.0-47.0); HEMOGLOBIN 13.8 g/dL (12.0-15.5); LYMPHOCYTES % (AUTO) 21.2 % (13-45); MEAN CORPUSCULAR HEMOGLOBIN 29.3 pg (27.0-33.4); MEAN CORPUSCULAR HGB CONC 33.4 g/dL (32.0-36.0); MEAN CORPUSCULAR VOLUME 88 fl (80-97); MONOCYTES % (AUTO) 5.5 % (3-13); RED BLOOD COUNT 4.71 10^6/uL (3.72-5.28); RED CELL DISTRIBUTION WIDTH 12.7 % (11.5-14.0); SEGMENTED NEUTROPHILS % (AUTO) 72.3 % (42-78); WHITE BLOOD COUNT 7.2 10^3/uL (4.0-10.5)
[2016-12-12 11:06] LABS: ALANINE AMINOTRANSFERASE 23 U/L (9-52); ALBUMIN 3.8 g/dL (3.5-5.0); ALKALINE PHOSPHATASE 58 U/L (38-126); ANION GAP 8 (5-19); ASPARTATE AMINO TRANSFERASE 17 U/L (14-36); BILIRUBIN,DIRECT 0.4 mg/dL (0.0-0.4); BILIRUBIN,TOTAL 0.6 mg/dL (0.2-1.3); BLOOD UREA NITROGEN 8 mg/dL (7-20); CALCIUM 8.9 mg/dL (8.4-10.2); CARBON DIOXIDE 22 mmol/L (22-30); CHLORIDE 106 mmol/L (98-107); CREATININE RESULT 0.58 mg/dL (0.52-1.25); GLUCOSE 96 mg/dL (75-110); POTASSIUM 4.5 mmol/L (3.6-5.0); SODIUM 136.2 mmol/L (137-145); TOTAL PROTEIN 6.8 g/dL (6.3-8.2)
[2016-12-12] MEDS ORDERED: LIDOCAINE 1% INJ-PF (10 MG/ML) 30 ML SDV INJ ONE (11:15)
--- NOTE | 2016-12-12 15:50 | RADIOLOGY REPORT (SQ) ---
EXAM DESCRIPTION: MRI RT UPPER EXTREMITY WITHOUT COMPLETED DATE/TIME: 12/12/2016 3:20 pm REASON FOR STUDY: cellulitis r hand/wrist, hx iv drug use COMPARISON: None. TECHNIQUE: Multiplanar imaging of the right distal forearm and wrist to include T1-weighted, STIR we ighted, and T2-weighted images. CONTRAST TYPE AND DOSE: None given RENAL FUNCTION: Not required LIMITATIONS: None. FINDINGS: BONE MARROW: No marrow signal alteration. Specifically no marrow replacement or marrow ed caroline. No evidence for osteomyelitis. No cortical break through. SOFT TISSUES: There is subcutaneous edema throughout the dorsum of the hand and wrist extending proxi jenni the level of the distal 3rd right forearm. In the forearm, edema tracks in the tissue planes b etween the abductors pollicis longus, extensor pollicis longus and extensor digitorum muscles, withou t abnormal intramuscular signal or abscess. Patient had a wrist joint aspiration attempted in the emergency room. There is fluid in the tendon s heaths of the extensor digitorum, extensor indicis, and extensor pollicis tendons which could be rela ricky to injection of lidocaine for the joint aspiration, or could be related to tendon sheath inflamma tion/infection OTHER: No other significant finding. IMPRESSION: No bony marrow signal abnormality worrisome for osteomyelitis. No significant wrist joint effusion. Diffuse cellulitis in the soft tissues of the dorsum of the hand extending to the distal 3rd of the f orearm There is fluid in the tendon sheaths of the extensor digitorum, extensor indicis, and extensor pollic is tendons. This could be related to tendon sheath inflammation/infection, or could be artifact from lidocaine injected for wrist joint aspiration TECHNICAL DOCUMENTATION: JOB ID: [id number] [employer]- All Rights Reserved
[2016-12-12] MEDS ORDERED: AMPICILLIN SOD/SULBACTAM 1.5 GM VIAL IV SCH (17:30)
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
[2016-12-12] MEDS: CLINDAMYCIN 600 MG/D5W RTU 600 MG/50 ML RTUPB IV SCH (18:12)
[2016-12-12 19:51] LABS: ADD ON TESTING BLD IN LAB ACKNOWLEDGE
[2016-12-12 20:12] LABS: MAGNESIUM 2.1 mg/dL (1.6-2.3)
[2016-12-12] MEDS: AMPICILLIN SODIUM/SULBACTAM NA 1.5 GM in NORMAL SALINE 100 ML IV SCH (20:12)
[2016-12-12] MEDS: ACETAMINOPHEN 325 MG TABLET PO PRN (20:13)
--- NOTE | 2016-12-12 20:13 | PDOC CONSULTATION ---
Consultation Consult Date: 12/12/16 Consult reason:: Positive Test History of Present Illness Admission Date/PCP: 12/12/16 17:07 26yo with LMP of 10/23/2016. Pt admitted to hospital for IV Abx for Right hand cellulitus secondary to IV drug use. Pt had a positive preg test on admission No vaginal bleeding or pelvic pain Past Medical History LMP: Gynecological Infection: No Obstetrical History: none 1 Weeks: 40 Delivery: : Low Cervical, Transverse 2 Weeks: 39 Delivery: : Low Cervical, Transverse Pulmonary Medical History: Reports: Bronchitis, Pneumonia Neurological Medical History: Reports: Migraine Endocrine Medical History: Denies: Diabetes Mellitus Type 1, Diabetes Mellitus Type 2 GI Medical History: Reports: Gastroesophageal Reflux Disease, Hepatitis - ?hep c Psychiatric Medical History: Reports: Bipolar Disorder, Depression Traumatic Medical History: Reports: Traumatic Brain Injury Social History Information Source: Patient Smoking Status: Current Every Day Smoker Cigarettes Packs Per Day: 10 Number of Years Smokin Last Time Smoked: 12/12/16 Frequency of Alcohol Use: Social Hx Recreational Drug Use: Yes Drugs: Cocaine Hx Prescription Drug Abuse: No - Advance Directive Resuscitation Status: Full Code Family History Family History: Reviewed & Not Pertinent, Arthritis, CAD, COPD, CVA, DM, Hyperlipidemia, Hypertension, Malignancy, Thyroid Disfunction Parental Family History Reviewed: Yes Children Family History Reviewed: Yes Sibling(s) Family History Reviewed.: Yes Medication/Allergy Home Medications: Pnv No.122/Iron/Folic Acid [ Multi Tablet] 1 each PO DAILY 12/12/16 Allergies/Adverse Reactions: adhesive [Adhesive] Allergy (Intermediate, Verified 12/12/16 09:27) latex [Latex] Allergy (Intermediate, Verified 12/12/16 09:27) Review of Systems All systems: reviewed and no additional remarkable complaints except as stated Physical Exam - Physical Exam Vital Signs: Temp Pulse Resp BP Pulse Ox 98.0 F 84 16 104/73 100 12/12/16 18:36 12/12/16 18:36 12/12/16 18:36 12/12/16 18:36 12/12/16 18:36 General appearance: PRESENT: no acute distress, cooperative GI/Abdominal exam: PRESENT: normal bowel sounds, soft - Nontender Abdomen Result Impressions: Upper Extremity MRI 12/12/16 13:52 IMPRESSION: No bony marrow signal abnormality worrisome for osteomyelitis. No significant wrist joint effusion. Diffuse cellulitis in the soft tissues of the dorsum of the hand extending to the distal 3rd of the forearm There is fluid in the tendon sheaths of the extensor digitorum, extensor indicis , and extensor pollicis tendons. This could be related to tendon sheath inflammation/infection, or could be artifact from lidocaine injected for wrist joint aspiration Assessment & Plan - Diagnosis (1) Cellulitis of hand Is this a current diagnosis for this admission?: Yes (2) Cellulitis of wrist Is this a current diagnosis for this admission?: Yes (3) IV drug user Is this a current diagnosis for this admission?: Yes (4) Qualifiers: Weeks of gestation: less than 8 weeks Qualified Code(s): Z3A.01 - Less than 8 weeks gestation of Is this a current diagnosis for this admission?: Yes - Time Time Spent: 30 to 50 Minutes Medications reviewed and adjusted accordingly: Yes Anticipated discharge: Home with Homehealth Within: Other - Will obtain a Beta HCG and OB ultrasound Pt to f/u with HD upon discharge from hospital
[2016-12-12 20:50] LABS: URINE BARBITURATES SCREEN NEGATIVE; URINE METHADONE SCREEN NEGATIVE; URINE PHENCYCLIDINE SCREEN NEGATIVE
[2016-12-12 20:58] LABS: URINE OPIATES LOW UNCONFIRMED POSITIVE
[2016-12-12] MEDS ORDERED: MAG HYDROX/AL HYDROX/SIMETH SUSP 30 ML UDCUP PO PRN (22:42)
[2016-12-12] MEDS: PROMETHAZINE HCL 25 MG TABLET PO PRN (22:56)
[2016-12-13] MEDS: CLINDAMYCIN 600 MG/D5W RTU 600 MG/50 ML RTUPB IV SCH ×3 (01:29→17:29)
[2016-12-13] MEDS: ACETAMINOPHEN 325 MG TABLET PO PRN ×5 (01:37→22:27)
[2016-12-13] MEDS: AMPICILLIN SODIUM/SULBACTAM NA 1.5 GM in NORMAL SALINE 100 ML IV SCH ×2 (02:45→08:02)
--- NOTE | 2016-12-13 07:14 | RADIOLOGY REPORT (SQ) ---
EXAM DESCRIPTION: U/S OB TRANSVAGINAL W/O DOP COMPLETED DATE/TIME: 12/13/2016 6:43 am REASON FOR STUDY: Ultrasound for dating COMPARISON: None. TECHNIQUE: Transvaginal static and realtime grayscale images acquired of the pelvis. Additional bismark cted spectral and color Doppler images recorded. All images stored on PACs. bHCG: Not available. LIMITATIONS: None. FINDINGS: UTERUS: No masses. No anomalies. GESTATIONAL SAC: Yes. If viable, mean sac diameter 0.9 cm was corresponds with a gestational age of 5 weeks and 5 days an JACIEL of 08/10/2017. YOLK SAC: Possible. POLE: No. RIGHT ADNEXA: Normal ovary with normal vascular flow. No adnexal free fluid. 4.6 cm with likely 2.1 cm corpus luteal cyst. LEFT ADNEXA: Normal ovary with normal vascular flow. No adnexal free fluid. No adnexal masses. 3.0 cm. FREE FLUID: None. OTHER: No other significant finding. Cervical length: 3.4 cm. IMPRESSION: POSSIBLE EARLY INTRAUTERINE gestational sac. No pole and no cardiac activity iden tified at this time. Questionable yolk sac identified. CONSIDER 48-72 hr surveillance BHCG AND/OR ULTRASOUND FOR VERIFICATION AND TO EXCLUDE ECTOPIC PREGNAN CY. Trimester of : First - 0 to 13 weeks. TECHNICAL DOCUMENTATION: JOB ID: [id number] [employer]- All Rights Reserved
[2016-12-13] MEDS ORDERED: MAG HYDROX/AL HYDROX/SIMETH SUSP 30 ML UDCUP PO PRN (12:48)
[2016-12-13] MEDS: AMPICILLIN SODIUM/SULBACTAM NA 1.5 GM in NORMAL SALINE 50 ML IV SCH ×2 (14:29→20:52)
--- NOTE | 2016-12-13 14:39 | PDOC PROGRESS REPORT ---
Subjective Progress Note for:: 12/13/16 Subjective:: Feeling better today. Edema on hand is less as well as the redness. Ortho evaluated her and no surgery is necessary at this time. No diarrhea, chills nor temp.spikes. Physical Exam Vital Signs: Temp Pulse Resp BP Pulse Ox 98.6 F 70 16 132/66 H 100 12/13/16 11:51 12/13/16 11:51 12/13/16 11:51 12/13/16 11:51 12/13/16 11:51 Intake & Output 12/12/16 12/13/16 12/14/16 06:59 06:59 06:59 Intake Total 400 Output Total 250 Balance 150 Weight 92.7 kg General appearance: PRESENT: no acute distress, cooperative Head exam: PRESENT: normocephalic Eye exam: PRESENT: EOMI Mouth exam: PRESENT: moist, neck supple Neck exam: ABSENT: JVD Respiratory exam: PRESENT: clear to auscultation zach. ABSENT: rhonchi, wheezes Cardiovascular exam: PRESENT: RRR GI/Abdominal exam: PRESENT: normal bowel sounds, soft Extremities exam: PRESENT: +1 edema - right hand and forearm but less. Tenderness less. Redness resolved. Neurological exam: PRESENT: alert, awake, oriented to situation Skin exam: PRESENT: dry, warm. ABSENT: cyanosis Results Impressions: Upper Extremity MRI 12/12/16 13:52 IMPRESSION: No bony marrow signal abnormality worrisome for osteomyelitis. No significant wrist joint effusion. Diffuse cellulitis in the soft tissues of the dorsum of the hand extending to the distal 3rd of the forearm There is fluid in the tendon sheaths of the extensor digitorum, extensor indicis , and extensor pollicis tendons. This could be related to tendon sheath inflammation/infection, or could be artifact from lidocaine injected for wrist joint aspiration Obstetrics Ultrasound 12/13/16 00:00 IMPRESSION: POSSIBLE EARLY INTRAUTERINE gestational sac. No pole and no cardiac activity identified at this time. Questionable yolk sac identified. CONSIDER 48-72 hr surveillance BHCG AND/OR ULTRASOUND FOR VERIFICATION AND TO EXCLUDE ECTOPIC . Trimester of : First - 0 to 13 weeks. Assessment & Plan - Diagnosis (1) Cellulitis of hand Is this a current diagnosis for this admission?: Yes (2) Cellulitis of wrist Is this a current diagnosis for this admission?: Yes (3) IV drug user Is this a current diagnosis for this admission?: Yes (4) Qualifiers: Weeks of gestation: less than 8 weeks Qualified Code(s): Z3A.01 - Less than 8 weeks gestation of Is this a current diagnosis for this admission?: Yes (5) Dental caries Is this a current diagnosis for this admission?: Yes - Time Time Spent with patient: 15-24 minutes - Plan Summary Plan Summary: Cont. antibiotics. Follow cultures. Possible D/C in am if she continues to improve.
[2016-12-14] MEDS: CLINDAMYCIN 600 MG/D5W RTU 600 MG/50 ML RTUPB IV SCH (02:22)
[2016-12-14] MEDS: ACETAMINOPHEN 325 MG TABLET PO PRN (02:36)
[2016-12-14] MEDS: AMPICILLIN SODIUM/SULBACTAM NA 1.5 GM in NORMAL SALINE 50 ML IV SCH ×2 (05:05→09:13)
[2016-12-14] MEDS: PROMETHAZINE HCL 25 MG TABLET PO PRN (05:45)
--- NOTE | 2016-12-14 05:56 | PDOC CONSULTATION ---
Consultation Consult Date: 12/13/16 Consult reason:: follow up on OB sono History of Present Illness Admission Date/PCP: 12/12/16 17:10 Patient complains of: currently having some light brown vaginal spotting History of Present Illness: KAUSHAL INFANTE is a 26 year old female, with no significant past medical history other than intravenous drug abuse came to the emergency room because of pain and swelling with associated redness on the right hand and forearm. There is associated sweating and sensation of warm but no definite fever. Denies having any chills as well. Patient reportedly injects cocaine on a chronic habit and the last time she used it was a week and half ago where she injected the drug on her right hand and wrist. She eventually found that she was and so she denies using it more recently. Patient reports that she found not being at about the same time she used cocaine a week and half ago. Past Medical History LMP: Gynecological Infection: No Obstetrical History: none Pulmonary Medical History: Reports: Bronchitis, Pneumonia Neurological Medical History: Reports: Migraine Endocrine Medical History: Denies: Diabetes Mellitus Type 1, Diabetes Mellitus Type 2 GI Medical History: Reports: Gastroesophageal Reflux Disease, Hepatitis - ?hep c Psychiatric Medical History: Reports: Bipolar Disorder, Depression Traumatic Medical History: Reports: Traumatic Brain Injury Social History Smoking Status: Current Every Day Smoker Cigarettes Packs Per Day: 10 Number of Years Smokin Last Time Smoked: 12/12/16 Frequency of Alcohol Use: None Hx Recreational Drug Use: Yes Drugs: Cocaine Hx Prescription Drug Abuse: No - Advance Directive Resuscitation Status: Full Code Family History Family History: Arthritis, CAD, COPD, CVA, DM, Hyperlipidemia, Hypertension, Malignancy, Thyroid Disfunction Parental Family History Reviewed: No Children Family History Reviewed: No Sibling(s) Family History Reviewed.: No Medication/Allergy Home Medications: Pnv No.122/Iron/Folic Acid [ Multi Tablet] 1 each PO DAILY 12/12/16 Allergies/Adverse Reactions: adhesive [Adhesive] Allergy (Intermediate, Verified 12/12/16 09:27) latex [Latex] Allergy (Intermediate, Verified 12/12/16 09:27) Physical Exam - Physical Exam Vital Signs: Temp Pulse Resp BP Pulse Ox 98.8 F 73 18 117/61 100 12/14/16 04:39 12/14/16 04:39 12/14/16 04:39 12/14/16 04:39 12/14/16 04:39 Intake & Output 12/12/16 12/13/16 12/14/16 06:59 06:59 06:59 Intake Total 400 Output Total 250 Balance 150 Weight 92.7 kg 93.3 kg Result Impressions: Upper Extremity MRI 12/12/16 13:52 IMPRESSION: No bony marrow signal abnormality worrisome for osteomyelitis. No significant wrist joint effusion. Diffuse cellulitis in the soft tissues of the dorsum of the hand extending to the distal 3rd of the forearm There is fluid in the tendon sheaths of the extensor digitorum, extensor indicis , and extensor pollicis tendons. This could be related to tendon sheath inflammation/infection, or could be artifact from lidocaine injected for wrist joint aspiration Obstetrics Ultrasound 12/13/16 00:00 IMPRESSION: POSSIBLE EARLY INTRAUTERINE gestational sac. No pole and no cardiac activity identified at this time. Questionable yolk sac identified. CONSIDER 48-72 hr surveillance BHCG AND/OR ULTRASOUND FOR VERIFICATION AND TO EXCLUDE ECTOPIC . Trimester of : First - 0 to 13 weeks. Assessment & Plan - Plan Summary Plan Summary: d/w patient results of ob sono that are inconclusive for viable . recommend repeating sono in 1-2 weeks and if has not progressed would recommend interventions at that time for medical vs surgical options to treat missed . d/w patient that at this time, cannot assure that will progress normally.
--- NOTE | 2016-12-14 11:15 | PDOC DISCHARGE SUMMARY ---
General - Admit/Disc Date/PCP Admission Date/Primary Care Provider: 12/12/16 17:10 Discharge Date: 12/14/16 - Discharge Diagnosis (1) Cellulitis of hand Is this a current diagnosis for this admission?: Yes (2) Cellulitis of wrist Is this a current diagnosis for this admission?: Yes (3) IV drug user Is this a current diagnosis for this admission?: Yes (4) Is this a current diagnosis for this admission?: Yes (5) Dental caries Is this a current diagnosis for this admission?: Yes - Additional Information Resuscitation Status: Full Code Discharge Diet: Regular Discharge Activity: Activity As Tolerated, Balance Activity w/Rest Home Medications: Pnv No.122/Iron/Folic Acid [ Multi Tablet] 1 each PO DAILY 12/12/16 Acetaminophen [Tylenol 325 mg Tablet] 650 mg PO Q4HP PRN tablet 12/14/16 Amoxicillin/Potassium Clav [Augmentin 875-125 Tablet] 1 each PO BID #24 tablet 12/14/16 Clindamycin HCl 300 mg PO Q6H #48 capsule 12/14/16 Additional Information: Stop cocaine, return to ER if symptoms worsens or with bleeding History of Present Illness Patient complains of: Pain and swelling on RUE History of Present Illness: KAUSHAL INFANTE is a 26 year old female, with no significant past medical history other than intravenous drug abuse came to the emergency room because of pain and swelling with associated redness on the right hand and forearm. There is associated sweating and sensation of warm but no definite fever. Denies having any chills as well. Patient reportedly injects cocaine on a chronic habit and the last time she used it was a week and half ago where she injected the drug on her right hand and wrist. She eventually found that she was and so she denies using it more recently. Patient reports that she found not being at about the same time she used cocaine a week and half ago. Hospital Course Hospital Course: The patient was admitted to [facility]. IV antibiotics were started. Consultation w/ Dr. Rivera was made as well as with Dr. Wilson. Dr. Rivera evaluated the patient and reportedly no surgical intervention necessary and continue antibiotics. Dr. Wilson obtained pelvic US but viability was not established. On OBGYN follow-up, Dr. Reaves recommended follow-up US in 1 week to check viability of . Patients culture were negative. Swelling on the forearm, wrist and hand improved as well as the redness and tenderness. Pt able to move fingers more compared during admission. She requested to be discharged and continue tx out-patient. The rest of the hospital stay was unremarkable.She was advised to see her dentist for her caries. Physical Exam Vital Signs: Temp Pulse Resp BP Pulse Ox 98.2 F 74 16 120/64 100 12/14/16 08:06 12/14/16 08:06 12/14/16 08:06 12/14/16 08:06 12/14/16 08:06 Intake & Output 12/13/16 12/14/16 12/15/16 06:59 06:59 06:59 Intake Total 400 Output Total 250 Balance 150 Weight 92.7 kg 93.3 kg General appearance: PRESENT: no acute distress, cooperative Head exam: PRESENT: normocephalic Eye exam: PRESENT: EOMI Mouth exam: PRESENT: moist, neck supple Neck exam: ABSENT: JVD Respiratory exam: PRESENT: clear to auscultation zach Cardiovascular exam: PRESENT: RRR GI/Abdominal exam: PRESENT: normal bowel sounds, soft. ABSENT: distended Extremities exam: PRESENT: other - R hand and wrist/forearm swelling less. ABSENT: pedal edema Neurological exam: PRESENT: alert, awake, oriented to person, oriented to place , oriented to time, oriented to situation Skin exam: PRESENT: dry, erythema - on RUE resolved., warm. ABSENT: cyanosis Results Impressions: Upper Extremity MRI 12/12/16 13:52 IMPRESSION: No bony marrow signal abnormality worrisome for osteomyelitis. No significant wrist joint effusion. Diffuse cellulitis in the soft tissues of the dorsum of the hand extending to the distal 3rd of the forearm There is fluid in the tendon sheaths of the extensor digitorum, extensor indicis , and extensor pollicis tendons. This could be related to tendon sheath inflammation/infection, or could be artifact from lidocaine injected for wrist joint aspiration Obstetrics Ultrasound 12/13/16 00:00 IMPRESSION: POSSIBLE EARLY INTRAUTERINE gestational sac. No pole and no cardiac activity identified at this time. Questionable yolk sac identified. CONSIDER 48-72 hr surveillance BHCG AND/OR ULTRASOUND FOR VERIFICATION AND TO EXCLUDE ECTOPIC . Trimester of : First - 0 to 13 weeks. Qualifiers PATEINT BEING DISCHARGED WITH ANY OF THE FOLLOWING DIAGNOSIS?: No Plan Discharge Plan: Follow up w/ primary physician in 1 week. Follow-up w/ OBGYN in 1 week. Time Spent: Less than 30 Minutes
[2016-12-14 12:13] VITALS: BP 135/76
== END 2016-12-14 12:25 | disposition home or self-care (01) | DRG 781 ==
LOC: ER 09:19 → EEVIPCON 17:07 → EH 17:07 → UNDOADMIN 17:07 → EH 17:10 → 2N 18:28 → EH 18:28
PROC: 0RJN3ZZ Inspection of Right Wrist Joint, Percutaneous Approach (ICD-10-PCS; principal; 2016-12-12)
PROC: 0C96XZZ Drainage of Lower Gingiva, External Approach (ICD-10-PCS; 2016-12-12)
DX: O26.891 Other specified pregnancy related conditions, first trimester (principal); L03.113 Cellulitis of right upper limb; O99.321 Drug use complicating pregnancy, first trimester; F11.10 Opioid abuse, uncomplicated; F14.10 Cocaine abuse, uncomplicated; O99.611 Diseases of the digestive system complicating pregnancy, first trimester; K02.9 Dental caries, unspecified; O99.331 Smoking (tobacco) complicating pregnancy, first trimester; F17.210 Nicotine dependence, cigarettes, uncomplicated; O34.219 Maternal care for unspecified type scar from previous cesarean delivery; N85.8 Other specified noninflammatory disorders of uterus; O99.341 Other mental disorders complicating pregnancy, first trimester; F31.9 Bipolar disorder, unspecified; M79.641 Pain in right hand; Z3A.01 Less than 8 weeks gestation of pregnancy; Z87.820 Personal history of traumatic brain injury
CPT/HCPCS: 36415; 76817; 80053; 80307; 83735; 84702; 84703; 85025; 87040; 96365; 99285; J0295; J3490

== ENCOUNTER → 2016-12-20 | Outpatient (CLI) | payer MEDICAID | LOC: OCH 16:00 | PROVIDERS: ATTEND Nurse Practitioner Women's Health | DX: O02.1 Missed abortion (principal) | CPT/HCPCS: 36415; 84702 ==

== ENCOUNTER → 2016-12-20 | Outpatient (CLI) | payer MEDICAID ==
--- NOTE | 2016-12-22 15:57 | RADIOLOGY REPORT (SQ) ---
EXAM DESCRIPTION: U/S 1TRIMESTER/1GEST W/DOPPLER COMPLETED DATE/TIME: 12/20/2016 3:59 pm REASON FOR STUDY: Missed AB COMPARISON: none TECHNIQUE: Transabdominal pelvic ultrasound was performed including select Doppler imaging saved to pac's. LIMITATIONS: A FINDINGS: Transabdominal pelvic ultrasound. The uterus is 9.8 x 7.8 x 4.2 cm in size. In the fundal endometrial canal, an intrauterine gestation al sac is present with a 6 week 2 day embryo by crown-rump length measurements. Embryo cardiac activ ity 123 beats per minute. Yolk sac identified. No free pelvic fluid. Right ovary 3 x 2.8 x 1.8 cm in size, left ovary 2.1 x 1.8 x 1.6 cm in size. Cervix closed, 2.4 cm in length. No subchorionic hemorrhage. No free pelvic cul-de-sac fluid. IMPRESSION: Living 6 week 2 day IUP,, embryo cardiac activity 123 beats per minute. Estimated due d ate August 13 2017
== END ==
LOC: RAD 14:50
PROVIDERS: ATTEND Nurse Practitioner Women's Health
DX: O02.1 Missed abortion (principal)
CPT/HCPCS: 76801; 93976

== ENCOUNTER 2016-12-21 19:13 | Emergency (ER) | payer MEDICAID ==
[2016-12-21 19:34] VITALS: BP 124/70
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
[2016-12-21 23:39] LABS: ABSOLUTE EOSINOPHILS # (AUTO) 0.1 10^3/uL (0.0-0.6); ABSOLUTE LYMPHOCYTES (AUTO) 1.8 10^3/uL (0.5-4.7); ABSOLUTE MONOCYTES (AUTO) 0.4 10^3/uL (0.1-1.4); ABSOLUTE NEUT (AUTO) 4.7 10^3/uL (1.7-8.2); BASOPHILS % (AUTO) 0.5 % (0-2); EOSINOPHILS % (AUTO) 1.7 % (0-6); HEMATOCRIT 37.2 % (36.0-47.0); HEMOGLOBIN 12.7 g/dL (12.0-15.5); HGB HCT DIFFERENCE 0.9; LYMPHOCYTES % (AUTO) 25.9 % (13-45); MEAN CORPUSCULAR HEMOGLOBIN 29.2 pg (27.0-33.4); MEAN CORPUSCULAR HGB CONC 34.1 g/dL (32.0-36.0); MEAN CORPUSCULAR VOLUME 86 fl (80-97); MONOCYTES % (AUTO) 5.1 % (3-13); RED BLOOD COUNT 4.34 10^6/uL (3.72-5.28); RED CELL DISTRIBUTION WIDTH 12.4 % (11.5-14.0); SEGMENTED NEUTROPHILS % (AUTO) 66.8 % (42-78)
[2016-12-21 23:40] LABS: AMORPHOUS SEDIMENT,URINE TRACE /HPF; APPEARANCE,URINE CLOUDY; BILIRUBIN,URINE NEGATIVE (NEGATIVE); GLUCOSE, URINE NEGATIVE (NEGATIVE); KETONES,URINE NEGATIVE (NEGATIVE); LEUKOCYTE ESTERASE,URINE MODERATE (NEGATIVE); NITRITE,URINE NEGATIVE (NEGATIVE); PROTEIN,URINE 100 mg/dL (NEGATIVE); URINE SPECIFIC GRAVITY 1.014; UROBILINOGEN,URINE NEGATIVE mg/dL (<2.0)
[2016-12-22] MEDS ORDERED: CEFTRIAXONE 1 GM/D5W RTU 1 GM/50 ML RTUPB IV ONE (01:07)
[2016-12-22] MEDS ORDERED: CEPHALEXIN 500 MG CAPSULE PO ONE (01:14)
[2016-12-22] MEDS ORDERED: ONDANSETRON ODT 4 MG TAB (6 TAB/DSPK) PO PRN (01:51)
--- NOTE | 2016-12-25 11:24 | RADIOLOGY REPORT (SQ) ---
EXAM DESCRIPTION: U/S OB TRANSVAG W/DOPPLER COMPLETED DATE/TIME: 12/22/2016 12:09 am REASON FOR STUDY: VAG BLEED, PREG COMPARISON: None. LIMITATIONS: None. FINDINGS: Transvaginal sonogram demonstrates a 10 cm uterus containing an intrauterine gestational s ac and fetus measuring 0.8 cm in crown-rump length corresponding with a gestational age of 6 weeks an d 6 days, JACIEL 08/10/2017, with cardiac activity of 123 beats per minute. Yolk sac is identified. 1.1 cm subchorionic hemorrhage. 3.7 cm right ovary, 3.2 cm left ovary, 3.0 cm cervical length appear otherwise unremarkable. IMPRESSION: Live intrauterine fetus with gestational age 6 weeks and 6 days, JACIEL 08/10/2017, at-risk w ith 1.1 cm subchorionic hemorrhage. Recommend 48-72 hours laboratory/sonographic surveillance. TECHNICAL DOCUMENTATION: JOB ID: [id number] [employer] All Rights Reserved
== END 2016-12-22 02:03 | disposition home or self-care (01) ==
LOC: ER 19:13
DX: O23.41 Unspecified infection of urinary tract in pregnancy, first trimester (principal); O20.8 Other hemorrhage in early pregnancy; O99.89 Other specified diseases and conditions complicating pregnancy, childbirth and the puerperium; M54.9 Dorsalgia, unspecified; Z3A.01 Less than 8 weeks gestation of pregnancy; Z87.442 Personal history of urinary calculi; Z91.048 Other nonmedicinal substance allergy status; Z91.040 Latex allergy status; Z87.42 Personal history of other diseases of the female genital tract
CPT/HCPCS: 36415; 76817; 81001; 84702; 85025; 86900; 86901; 87086; 87088; 87186; 93976; 99284

== ENCOUNTER → 2016-12-22 | Outpatient (CLI) | payer MEDICAID | LOC: OCH 12:53 | DX: O02.1 Missed abortion (principal) | CPT/HCPCS: 36415; 84702 ==

== ENCOUNTER → 2016-12-26 | Outpatient (CLI) | payer MEDICAID | LOC: OCH 16:46 | DX: O02.1 Missed abortion (principal) | CPT/HCPCS: 36415; 84702 ==

== ENCOUNTER → 2016-12-28 | Outpatient (CLI) | payer MEDICAID ==
--- NOTE | 2016-12-28 17:20 | RADIOLOGY REPORT (SQ) ---
EXAM DESCRIPTION: U/S [id number] TRNABD 1GES W/ODOP COMPLETED DATE/TIME: 12/28/2016 4:56 pm REASON FOR STUDY: ENCOUNTER FOR SUPERVISION OF OTHER NORMAL Z34.81 ENCOUNTER FOR SUPRVSN OF NORMAL , FIRST TRIM COMPARISON: OB ultrasound 12/13/2016 TECHNIQUE: Endovaginal static and realtime grayscale images acquired of the pelvis. Additional selec ricky spectral and color Doppler images recorded. All images stored on PACs. bHCG: Not available LIMITATIONS: None. FINDINGS: FETUS: Living intrauterine . EGA: 7 weeks 5 days JACIEL: 08/11/2017 FHR: 153 beats per minute. SUBCHORIONIC BLEED: Yes, SIZE OF BLEED: 2.3 x 0.8 cm in size. UTERUS: No masses. No anomalies. Uterus measures 11 x 6 x 5 cm in size. CERVICAL LENGTH: 3 cm in length Closed. RIGHT ADNEXA: Not visualized due to adnexal bowel gas LEFT ADNEXA: Not visualized due to adnexal bowel gas FREE FLUID: None. OTHER: No other significant finding. IMPRESSION: LIVING INTRAUTERINE . EGA 7 weeks 5 days. Lower uterine segment small subchorionic hemorrhage. Cervix closed. Trimester of : First - 0 to 13 weeks. TECHNICAL DOCUMENTATION: JOB ID: [id number] [employer]- All Rights Reserved
== END ==
LOC: RAD 15:54
PROVIDERS: ATTEND Nurse Practitioner Women's Health
DX: Z34.81 Encounter for supervision of other normal pregnancy, first trimester (principal)
CPT/HCPCS: 36415; 76801; 84702

== ENCOUNTER 2017-01-26 20:16 | Emergency (ER) | payer MEDICAID ==
[2017-01-26] MEDS ORDERED: ONDANSETRON 4 MG TAB.RAPDIS PO ONE (21:21)
[2017-01-26 21:56] LABS: ABSOLUTE LYMPHOCYTES (AUTO) 1.6 10^3/uL (0.5-4.7); ABSOLUTE MONOCYTES (AUTO) 0.3 10^3/uL (0.1-1.4); ABSOLUTE NEUT (AUTO) 7.9 10^3/uL (1.7-8.2); BASOPHILS % (AUTO) 0.2 % (0-2); EOSINOPHILS % (AUTO) 0.3 % (0-6); HEMATOCRIT 37.1 % (36.0-47.0); HEMOGLOBIN 12.9 g/dL (12.0-15.5); HGB HCT DIFFERENCE 1.6; LYMPHOCYTES % (AUTO) 15.9 % (13-45); MEAN CORPUSCULAR HEMOGLOBIN 29.3 pg (27.0-33.4); MEAN CORPUSCULAR HGB CONC 34.7 g/dL (32.0-36.0); MEAN CORPUSCULAR VOLUME 85 fl (80-97); MONOCYTES % (AUTO) 3.5 % (3-13); RED BLOOD COUNT 4.38 10^6/uL (3.72-5.28); RED CELL DISTRIBUTION WIDTH 13.4 % (11.5-14.0); SEGMENTED NEUTROPHILS % (AUTO) 80.1 % (42-78); WHITE BLOOD COUNT 9.8 10^3/uL (4.0-10.5)
[2017-01-26 22:06] LABS: ALANINE AMINOTRANSFERASE 28 U/L (9-52); ALKALINE PHOSPHATASE 49 U/L (38-126); ANION GAP 11 (5-19); ASPARTATE AMINO TRANSFERASE 18 U/L (14-36); BILIRUBIN,DIRECT 0.3 mg/dL (0.0-0.4); BILIRUBIN,TOTAL 0.6 mg/dL (0.2-1.3); BLOOD UREA NITROGEN 10 mg/dL (7-20); CALCIUM 9.8 mg/dL (8.4-10.2); CARBON DIOXIDE 20 mmol/L (22-30); CHLORIDE 106 mmol/L (98-107); CREATININE RESULT 0.44 mg/dL (0.52-1.25); GLUCOSE 84 mg/dL (75-110); POTASSIUM 3.8 mmol/L (3.6-5.0); SODIUM 137.4 mmol/L (137-145); TOTAL PROTEIN 6.6 g/dL (6.3-8.2)
--- NOTE | 2017-01-26 22:23 | RADIOLOGY REPORT (SQ) ---
EXAM DESCRIPTION: U/S 1TRIMESTER/1GEST W/DOPPLER COMPLETED DATE/TIME: 01/26/2017 10:12 pm REASON FOR STUDY: vaginal bleeding COMPARISON: 12/21/2016 TECHNIQUE: Transabdominal static and realtime grayscale images acquired of the pelvis. Additional se lected spectral and color Doppler images recorded. All images stored on PACs. bHCG: Not available. LIMITATIONS: None. FINDINGS: FETUS: Living intrauterine . EGA: 12 weeks 4 days JACIEL: 08/06/2017 FHR: 160 beats per minute. SUBCHORIONIC BLEED: No. SIZE OF BLEED: Not applicable. UTERUS: No masses. No anomalies. CERVICAL LENGTH: 2.4 cm. Closed. RIGHT ADNEXA: Ovary not identified. No adnexal free fluid. No adnexal masses. LEFT ADNEXA: Normal ovary with normal vascular flow. No adnexal free fluid. No adnexal masses. FREE FLUID: None. OTHER: No other significant finding. IMPRESSION: LIVING INTRAUTERINE . EGA 12 WEEKS 4 DAYS. APPROPRIATE GROWTH FROM PRIOR ULTRASOUND. Trimester of : First - 0 to 13 weeks. TECHNICAL DOCUMENTATION: JOB ID: [id number] [employer]- All Rights Reserved
[2017-01-26 22:25] LABS: APPEARANCE,URINE SLIGHTLY-CLOUDY; BILIRUBIN,URINE NEGATIVE (NEGATIVE); GLUCOSE, URINE NEGATIVE (NEGATIVE); KETONES,URINE NEGATIVE (NEGATIVE); LEUKOCYTE ESTERASE,URINE TRACE (NEGATIVE); NITRITE,URINE NEGATIVE (NEGATIVE); PROTEIN,URINE NEGATIVE (NEGATIVE); URINE SPECIFIC GRAVITY 1.025
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
[2017-01-26] MEDS ORDERED: ONDANSETRON ODT 4 MG TAB (6 TAB/DSPK) PO PRN (22:58)
[2017-01-26 23:04] VITALS: BP 115/67
[2017-01-26 23:50] LABS: CHLAM PCR NOT DETECTED (NOT DETECT)
== END 2017-01-26 23:04 | disposition home or self-care (01) ==
LOC: ER 20:16
DX: O26.851 Spotting complicating pregnancy, first trimester (principal); O21.9 Vomiting of pregnancy, unspecified; O26.891 Other specified pregnancy related conditions, first trimester; R25.2 Cramp and spasm; O99.331 Smoking (tobacco) complicating pregnancy, first trimester; Z11.3 Encounter for screening for infections with a predominantly sexual mode of transmission; Z3A.12 12 weeks gestation of pregnancy; Z91.048 Other nonmedicinal substance allergy status; Z91.040 Latex allergy status
CPT/HCPCS: 99284; 36415; 84702; 85025; 80053; 81001; 87491; 87591; 76801; 93976; S0119

== ENCOUNTER 2017-03-16 14:35 | Emergency (ER) | payer MEDICAID ==
[2017-03-16] MEDS ORDERED: NALOXONE HCL INJ 2 MG/2 ML DISP.SYRIN IV ONE (15:07)
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
[2017-03-16] MEDS ORDERED: NALOXONE HCL INJ 2 MG/2 ML DISP.SYRIN IM ONE (15:59)
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
[2017-03-16 16:21] LABS: APPEARANCE,URINE SLIGHTLY-CLOUDY; BILIRUBIN,URINE NEGATIVE (NEGATIVE); GLUCOSE, URINE 50 mg/dL (NEGATIVE); KETONES,URINE NEGATIVE (NEGATIVE); LEUKOCYTE ESTERASE,URINE NEGATIVE (NEGATIVE); NITRITE,URINE NEGATIVE (NEGATIVE); PROTEIN,URINE 100 mg/dL (NEGATIVE); URINE SPECIFIC GRAVITY 1.012
[2017-03-16 16:35] LABS: URINE BARBITURATES SCREEN NEGATIVE; URINE METHADONE SCREEN NEGATIVE; URINE OPIATES LOW UNCONFIRMED POSITIVE; URINE PHENCYCLIDINE SCREEN NEGATIVE
[2017-03-16 17:52] VITALS: BP 110/61
[2017-03-16 18:00] LABS: ABSOLUTE LYMPHOCYTES (AUTO) 1.1 10^3/uL (0.5-4.7); ABSOLUTE MONOCYTES (AUTO) 0.2 10^3/uL (0.1-1.4); ABSOLUTE NEUT (AUTO) 4.2 10^3/uL (1.7-8.2); BASOPHILS % (AUTO) 0.2 % (0-2); EOSINOPHILS % (AUTO) 0.6 % (0-6); HEMATOCRIT 39.3 % (36.0-47.0); HEMOGLOBIN 13.7 g/dL (12.0-15.5); HGB HCT DIFFERENCE 1.8; LYMPHOCYTES % (AUTO) 20.3 % (13-45); MEAN CORPUSCULAR HEMOGLOBIN 28.9 pg (27.0-33.4); MEAN CORPUSCULAR HGB CONC 34.8 g/dL (32.0-36.0); MEAN CORPUSCULAR VOLUME 83 fl (80-97); MONOCYTES % (AUTO) 4.2 % (3-13); RED BLOOD COUNT 4.74 10^6/uL (3.72-5.28); RED CELL DISTRIBUTION WIDTH 13.6 % (11.5-14.0); SEGMENTED NEUTROPHILS % (AUTO) 74.7 % (42-78); WHITE BLOOD COUNT 5.6 10^3/uL (4.0-10.5)
[2017-03-16 18:24] LABS: ALANINE AMINOTRANSFERASE 39 U/L (9-52); ALBUMIN 3.6 g/dL (3.5-5.0); ALKALINE PHOSPHATASE 72 U/L (38-126); ANION GAP 14 (5-19); ASPARTATE AMINO TRANSFERASE 22 U/L (14-36); BILIRUBIN,DIRECT 0.2 mg/dL (0.0-0.4); BILIRUBIN,TOTAL 0.3 mg/dL (0.2-1.3); BLOOD UREA NITROGEN 4 mg/dL (7-20); CALCIUM 9.1 mg/dL (8.4-10.2); CARBON DIOXIDE 22 mmol/L (22-30); CHLORIDE 107 mmol/L (98-107); CREATININE RESULT 0.47 mg/dL (0.52-1.25); GLUCOSE 100 mg/dL (75-110); POTASSIUM 3.4 mmol/L (3.6-5.0); TOTAL PROTEIN 6.3 g/dL (6.3-8.2)
== END 2017-03-16 19:00 | disposition home or self-care (01) ==
LOC: ER 14:35
DX: T40.1X1A Poisoning by heroin, accidental (unintentional), initial encounter (principal); O9A.212 Injury, poisoning and certain other consequences of external causes complicating pregnancy, second trimester; S09.93XA Unspecified injury of face, initial encounter; O99.332 Smoking (tobacco) complicating pregnancy, second trimester; Z3A.19 19 weeks gestation of pregnancy; Y92.410 Unspecified street and highway as the place of occurrence of the external cause; Z91.040 Latex allergy status
CPT/HCPCS: 99291; 96372; 51701; 36415; 85025; 80053; 81001; 80307; 70450; 72125; J2310

== ENCOUNTER 2017-04-25 09:06 | Emergency (ER) | payer MEDICAID ==
[2017-04-25 09:15] VITALS: BP 123/72
[2017-04-25] MEDS ORDERED: LIDOCAINE 2% VISCOUS SOLN 20 ML UDCUP PO ONE (09:46)
[2017-04-25] MEDS ORDERED: PENICILLIN V POTASSIUM 500 MG TABLET PO ONE (09:46)
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
== END 2017-04-25 10:07 | disposition home or self-care (01) ==
LOC: ER 09:06
DX: K02.9 Dental caries, unspecified (principal); K08.89 Other specified disorders of teeth and supporting structures; Z3A.26 26 weeks gestation of pregnancy; F17.210 Nicotine dependence, cigarettes, uncomplicated
CPT/HCPCS: 99282; J3490 ×2

== ENCOUNTER 2017-05-07 22:10 | Emergency (ER) | payer MEDICAID ==
[2017-05-07] MEDS ORDERED: LIDOCAINE 2% JELLY 5 ML TUBE TOP ONE (22:49)
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
== END 2017-05-07 23:05 | disposition home or self-care (01) ==
LOC: ER 22:10
DX: O22.40 Hemorrhoids in pregnancy, unspecified trimester (principal); O99.320 Drug use complicating pregnancy, unspecified trimester; F11.10 Opioid abuse, uncomplicated; Z3A.00 Weeks of gestation of pregnancy not specified; Z91.040 Latex allergy status; Z91.048 Other nonmedicinal substance allergy status
CPT/HCPCS: 99283; J3490

== ENCOUNTER 2017-06-12 16:12 | Outpatient (CLI) | payer MEDICAID ==
[2017-06-12 17:04] LABS: AMNISURE (ROM) NEGATIVE (NEGATIVE)
[2017-06-12 17:34] LABS: APPEARANCE,URINE SLIGHTLY-CLOUDY; BILIRUBIN,URINE SMALL (NEGATIVE); COLOR,URINE AMBER; GLUCOSE, URINE NEGATIVE (NEGATIVE); KETONES,URINE NEGATIVE (NEGATIVE); LEUKOCYTE ESTERASE,URINE MODERATE (NEGATIVE); NITRITE,URINE NEGATIVE (NEGATIVE); PROTEIN,URINE 30 mg/dL (NEGATIVE); URINE SPECIFIC GRAVITY 1.034
[2017-06-12 17:46] LABS: URINE AMPHETAMINES SCREEN NEGATIVE; URINE BARBITURATES SCREEN NEGATIVE; URINE BENZODIAZEPINES SCREEN NEGATIVE; URINE MARIJUANA (THC) SCREEN NEGATIVE; URINE METHADONE SCREEN NEGATIVE; URINE PHENCYCLIDINE SCREEN NEGATIVE
[2017-06-12 17:55] LABS: URINE COCAINE SCREEN UNCONFIRMED POSITIVE
== END 2017-06-12 17:51 | disposition home or self-care (01) ==
LOC: LC 16:12
PROVIDERS: ATTEND Obstetrics & Gynecology Gynecology
PROC: 4A1HXCZ Monitoring of Products of Conception, Cardiac Rate, External Approach (ICD-10-PCS; principal; 2017-06-12)
DX: O36.8130 Decreased fetal movements, third trimester, not applicable or unspecified (principal); O47.03 False labor before 37 completed weeks of gestation, third trimester; Z3A.31 31 weeks gestation of pregnancy
CPT/HCPCS: 59899; 84112; 36415; 81001; 80307; 80353; 80361; G0480

== ENCOUNTER 2017-06-27 07:01 | Outpatient (CLI) | payer MEDICAID ==
[2017-06-27 07:45] LABS: AMNISURE (ROM) NEGATIVE (NEGATIVE)
[2017-06-27 08:06] LABS: APPEARANCE,URINE SLIGHTLY-CLOUDY; BILIRUBIN,URINE NEGATIVE (NEGATIVE); CALCIUM OXALATE CRYSTALS,URINE FEW /HPF; GLUCOSE, URINE 50 mg/dL (NEGATIVE); KETONES,URINE NEGATIVE (NEGATIVE); LEUKOCYTE ESTERASE,URINE SMALL (NEGATIVE); NITRITE,URINE NEGATIVE (NEGATIVE); PROTEIN,URINE 30 mg/dL (NEGATIVE); URINE SPECIFIC GRAVITY 1.034
[2017-06-27 08:07] LABS: COLOR,URINE DARK YELLOW
[2017-06-27 08:20] LABS: URINE AMPHETAMINES SCREEN NEGATIVE; URINE BARBITURATES SCREEN NEGATIVE; URINE BENZODIAZEPINES SCREEN NEGATIVE; URINE MARIJUANA (THC) SCREEN NEGATIVE; URINE METHADONE SCREEN NEGATIVE; URINE PHENCYCLIDINE SCREEN NEGATIVE
[2017-06-27 08:24] LABS: URINE COCAINE SCREEN UNCONFIRMED POSITIVE
--- NOTE | 2017-06-27 09:31 | Non Stress Test Report ---
Non Stress Test Datetime Report Generated by CPN: 06/27/2017 09:30 DEMOGRAPHIC EGA NST: 33.2 INDICATION Indication for Study: Ordered by Provider Indication for Study (NST) Other: lc MONITORING Monitor Explained: Monitor Explained; Test Explained; Patient Verbalized Understanding Time on Monitor: 06/27/2017 07:33 Time off Monitor: 06/27/2017 08:55 Time off Monitor: 06/27/2017 08:59 NST Duration: 82 NST INTERVENTIONS NST Interventions: PO Hydration; Reposition Patient NST Interventions: PO Hydration; Reposition Patient Physician Notified NST: A Richter CNM BABY A: [id number] BABY A Movement : Present Contraction Frequency : 0 FHR Baseline : 135 FHR Baseline : 135 Accelerations : 15X15 Decelerations : None Decelerations : Early Variability : Moderate 6-25bpm NST Review: Meets Criteria for Reactive NST NST Review and Verified By : Dorota Mendez [facility] NST Results: Reactive NST REPORT Report Trigger: Send Report
[2017-07-03 07:15] LABS: COCAINE METABOLITE CONFIRM UR Positive (.)
== END 2017-06-27 09:39 | disposition home or self-care (01) ==
LOC: LC 07:01
PROVIDERS: ATTEND Obstetrics & Gynecology
PROC: 4A1HXCZ Monitoring of Products of Conception, Cardiac Rate, External Approach (ICD-10-PCS; principal; 2017-06-27)
DX: O26.893 Other specified pregnancy related conditions, third trimester (principal); E86.0 Dehydration; Z3A.33 33 weeks gestation of pregnancy
CPT/HCPCS: 59025; 84112; 36415; 81001; 80307; 80353; 80361; G0480

== ENCOUNTER 2017-07-18 07:08 | Emergency (ER) | payer MEDICAID ==
[2017-07-18 07:15] VITALS: BP 145/86
[2017-07-18] MEDS ORDERED: AMOXICILLIN TRIHYDRATE 500 MG CAPSULE PO ONE (08:14)
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
== END 2017-07-18 08:25 | disposition left against medical advice (07) ==
LOC: ER 07:08
DX: K08.9 Disorder of teeth and supporting structures, unspecified (principal)
CPT/HCPCS: 99281

== ENCOUNTER 2017-10-29 03:18 | Emergency (ER) | payer MEDICAID ==
[2017-10-29] MEDS ORDERED: KETOROLAC TROMETHAMINE INJ/PF 30 MG/1 ML SDV IV ONE (03:47)
[2017-10-29] MEDS ORDERED: NORMAL SALINE 1000 ML 1,000 ML IV ONE (03:47)
[2017-10-29] MEDS ORDERED: ONDANSETRON 4 MG TAB.RAPDIS PO ONE (03:48)
[2017-10-29] MEDS ORDERED: MORPHINE SULFATE 10 MG/ML INJ IV ONE (03:48)
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
[2017-10-29 04:34] LABS: ABSOLUTE EOSINOPHILS # (AUTO) 0.1 10^3/uL (0.0-0.6); ABSOLUTE LYMPHOCYTES (AUTO) 1.3 10^3/uL (0.5-4.7); ABSOLUTE MONOCYTES (AUTO) 0.7 10^3/uL (0.1-1.4); ABSOLUTE NEUT (AUTO) 5.8 10^3/uL (1.7-8.2); BASOPHILS % (AUTO) 0.4 % (0-2); EOSINOPHILS % (AUTO) 0.7 % (0-6); HEMOGLOBIN 11.5 g/dL (12.0-15.5); LYMPHOCYTES % (AUTO) 16.5 % (13-45); MEAN CORPUSCULAR HEMOGLOBIN 27.2 pg (27.0-33.4); MEAN CORPUSCULAR HGB CONC 33.8 g/dL (32.0-36.0); MEAN CORPUSCULAR VOLUME 80 fl (80-97); MONOCYTES % (AUTO) 9.1 % (3-13); PLATELET COUNT 207 10^3/uL (150-450); RED BLOOD COUNT 4.23 10^6/uL (3.72-5.28); RED CELL DISTRIBUTION WIDTH 14.1 % (11.5-14.0); SEGMENTED NEUTROPHILS % (AUTO) 73.3 % (42-78); TOTAL CELLS COUNTED % (AUTO) 100 %; WHITE BLOOD COUNT 7.9 10^3/uL (4.0-10.5)
[2017-10-29 04:53] LABS: ALANINE AMINOTRANSFERASE 37 U/L (9-52); ALBUMIN 2.9 g/dL (3.5-5.0); ALKALINE PHOSPHATASE 73 U/L (38-126); ANION GAP 13 (5-19); ASPARTATE AMINO TRANSFERASE 28 U/L (14-36); BILIRUBIN,DIRECT 0.4 mg/dL (0.0-0.4); BILIRUBIN,TOTAL 0.4 mg/dL (0.2-1.3); BLOOD UREA NITROGEN 11 mg/dL (7-20); CALCIUM 8.5 mg/dL (8.4-10.2); CARBON DIOXIDE 28 mmol/L (22-30); CHLORIDE 99 mmol/L (98-107); GLUCOSE 97 mg/dL (75-110); LIPASE 18.5 U/L (23-300); POTASSIUM 3.8 mmol/L (3.6-5.0); TOTAL PROTEIN 5.8 g/dL (6.3-8.2)
[2017-10-29 04:57] LABS: RBCS (WET MOUNT) FEW RBCS SEEN; T.VAGINALIS (WET MOUNT) TRICHOMONAS SEEN; WBCS (WET MOUNT) 4+ WBCS SEEN; YEAST (WET MOUNT) NO YEAST SEEN
[2017-10-29 05:16] LABS: APPEARANCE,URINE CLOUDY; BILIRUBIN,URINE NEGATIVE (NEGATIVE); COLOR,URINE YELLOW; GLUCOSE, URINE NEGATIVE (NEGATIVE); KETONES,URINE NEGATIVE (NEGATIVE); LEUKOCYTE ESTERASE,URINE LARGE (NEGATIVE); NITRITE,URINE POSITIVE (NEGATIVE); PROTEIN,URINE 30 mg/dL (NEGATIVE); URINE SPECIFIC GRAVITY 1.012
[2017-10-29 05:23] LABS: URINE AMPHETAMINES SCREEN NEGATIVE; URINE BARBITURATES SCREEN NEGATIVE; URINE BENZODIAZEPINES SCREEN UNCONFIRMED POSITIVE; URINE COCAINE SCREEN NEGATIVE; URINE MARIJUANA (THC) SCREEN NEGATIVE; URINE METHADONE SCREEN NEGATIVE; URINE PHENCYCLIDINE SCREEN NEGATIVE
[2017-10-29] MEDS ORDERED: CEFTRIAXONE INJ 1000 MG VIAL IV ONE (05:27)
--- NOTE | 2017-10-29 06:23 | RADIOLOGY REPORT (SQ) ---
EXAM DESCRIPTION: CT ABDOMEN WITHOUT IV CONTRAST COMPLETED DATE/TME: 10/29/2017 05:23 CLINICAL HISTORY: 26 years Female, left flank pain, UTI, ?kidney stone Comparison: None. Technique: No contrast. Coronal and sagittal reformat. This exam was performed according to our departmental dose-optimization program, which includes automated exposure control, adjustment of the mA and/or kV according to patient size and/or use of iterative reconstruction technique.[facility]: Dose Right [facility]: CareDose [facility]: Dose Right [facility]: Teradose 4D [facility]: [employer] LIMITATIONS: None Findings: Right upper abdominal clips, normal appendix, 23 cm hepatomegaly, 16 cm enlarged left kidney with mild perinephric fat stranding. Right kidney measures 14 cm. Mild retroperitoneal lymphadenopathy adjacent to the left renal vein. Splenomegaly index is 1029. Unenhanced lower thorax, abdominopelvic structures, and musculoskeleton appear otherwise grossly unremarkable. Impression: 1. Enlarged, mildly inflamed left kidney may indicate pyelonephritis. Differential diagnosis includes a neoplasm. Recommend multiphase contrast CT surveillance of the renal system with clinically warranted therapy. 2. Hepatomegaly. Splenomegaly.
[2017-10-29 06:29] LABS: CHLAM PCR NOT DETECTED (NOT DETECT)
[2017-10-29 06:47] LABS: GON PCR DETECTED (NOT DETECT)
[2017-10-29] MEDS ORDERED: AZITHROMYCIN 250 MG TABLET PO ONE (06:47)
[2017-10-29 07:22] VITALS: BP 98/55
== END 2017-10-29 07:20 | disposition home or self-care (01) ==
LOC: ER 03:18
DX: N12 Tubulo-interstitial nephritis, not specified as acute or chronic (principal); A54.24 Gonococcal female pelvic inflammatory disease; A59.00 Urogenital trichomoniasis, unspecified; R31.9 Hematuria, unspecified; R11.0 Nausea; R00.0 Tachycardia, unspecified; R10.84 Generalized abdominal pain; R68.83 Chills (without fever); Z90.49 Acquired absence of other specified parts of digestive tract; Z87.19 Personal history of other diseases of the digestive system; Z91.040 Latex allergy status; Z91.048 Other nonmedicinal substance allergy status; Z87.42 Personal history of other diseases of the female genital tract
CPT/HCPCS: 99284; 96361; 96375; 96365; 36415; 87086; 87210; 83690; 85025; 81025; 87088; 80053; 81001; 87186; 80307; 87491; 87591; 76380; Q0144; S0119; J1885; J2270; J0696; J7030

== ENCOUNTER 2017-12-28 13:10 | Emergency (ER) | payer MEDICAID ==
[2017-12-28 13:29] VITALS: BP 117/60
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
[2017-12-28 14:54] LABS: APPEARANCE,URINE SLIGHTLY-CLOUDY; BILIRUBIN,URINE NEGATIVE (NEGATIVE); COLOR,URINE YELLOW; GLUCOSE, URINE NEGATIVE (NEGATIVE); KETONES,URINE NEGATIVE (NEGATIVE); LEUKOCYTE ESTERASE,URINE NEGATIVE (NEGATIVE); NITRITE,URINE NEGATIVE (NEGATIVE); PROTEIN,URINE NEGATIVE (NEGATIVE); URINE SPECIFIC GRAVITY 1.016
--- NOTE | 2017-12-28 16:15 | RADIOLOGY REPORT (SQ) ---
EXAM DESCRIPTION: U/S OB TRANSVAGINAL W/O DOP COMPLETED DATE/TIME: 12/28/2017 3:56 pm REASON FOR STUDY: 8 weeks, spotting, cramping, twins COMPARISON: none TECHNIQUE: Transvaginal static and realtime grayscale images acquired of the pelvis. Additional bismark cted spectral and color Doppler images recorded. All images stored on PACs. bHCG: Not available. CLINICAL DATES: 10 week. LIMITATIONS: none FINDINGS: Twin Intra-uterine gestation TYPE OF TWIN: Dichorionic Diamniotic. Two gestation sacs. Two yolk sacs. TWIN A: ULTRASOUND EGA: 8 week 1 day. ULTRASOUND JACIEL: 08/08/2018. CRL: 1.7 cm. GSD: 3.1 cm. FHR: 153 bpm SUBCHORIONIC BLEED: No. SIZE OF BLEED: Not applicable. TWIN B: ULTRASOUND EGA: 7 week 0 day. ULTRASOUND JACIEL: 08/16/2018. CRL: 1.0 cm. GSD: 1.5 cm. FHR: 132 bpm SUBCHORIONIC BLEED: No. SIZE OF BLEED: Not applicable. UTERUS: No masses. No anomalies. CERVICAL LENGTH: 3.7 cm. Closed. RIGHT ADNEXA: Normal ovary with normal vascular flow. No adnexal free fluid. No adnexal masses. LEFT ADNEXA: Normal ovary with normal vascular flow. No adnexal free fluid. No adnexal masses. FREE FLUID: None. OTHER: No other significant finding. IMPRESSION: LIVING TWIN INTRAUTERINE TWIN A EGA: 8 week 1 day. TWIN B EGA: 7 week 0 day. THE GESTATIONAL SAC OF TWIN B IS SIGNIFICANTLY SMALLER THAN THE GESTATIONAL SAC OF TWIN A AND THE AGE DISCREPANCY IS 8 DAYS. THIS RAISES CONCERN FOR FUTURE VIABILITY. WILL NEED OBSTETRIC FOLLOW-UP. Trimester of : First - 0 to 13 weeks. TECHNICAL DOCUMENTATION: JOB ID: [id number] [employer]otted- All Rights Reserved rev Reading location - IP/workstation name: [email or web address]
== END 2017-12-28 16:45 | disposition home or self-care (01) ==
LOC: ER 13:10
DX: O30.041 Twin pregnancy, dichorionic/diamniotic, first trimester (principal); O99.511 Diseases of the respiratory system complicating pregnancy, first trimester; J01.90 Acute sinusitis, unspecified; J06.9 Acute upper respiratory infection, unspecified; J02.9 Acute pharyngitis, unspecified; J34.89 Other specified disorders of nose and nasal sinuses; O26.851 Spotting complicating pregnancy, first trimester; O26.891 Other specified pregnancy related conditions, first trimester; R10.9 Unspecified abdominal pain; R09.81 Nasal congestion; O99.331 Smoking (tobacco) complicating pregnancy, first trimester; F17.210 Nicotine dependence, cigarettes, uncomplicated; Z3A.00 Weeks of gestation of pregnancy not specified; Z87.59 Personal history of other complications of pregnancy, childbirth and the puerperium; Z91.048 Other nonmedicinal substance allergy status; Z91.040 Latex allergy status; Z87.01 Personal history of pneumonia (recurrent)
CPT/HCPCS: 76817; 81001; 99284

== ENCOUNTER 2018-02-26 04:25 | Emergency (ER) | payer MEDICAID | END 2018-02-26 04:30 | disposition left against medical advice (07) | LOC: ER 04:25 | DX: Z53.21 Procedure and treatment not carried out due to patient leaving prior to being seen by health care provider (principal) ==

== ENCOUNTER 2018-03-19 02:23 | Emergency (ER) | payer MEDICAID ==
[2018-03-19] MEDS ORDERED: IPRATROPIUM/ALBUTEROL 0.5-2.5 MG/3 ML AMPUL NEB ONE (03:28)
[2018-03-19] MEDS ORDERED: ACETAMINOPHEN 325 MG TABLET PO ONE (03:31)
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
== END 2018-03-19 03:57 | disposition home or self-care (01) ==
LOC: ER 02:23
DX: O26.899 Other specified pregnancy related conditions, unspecified trimester (principal); R05 Cough; R07.9 Chest pain, unspecified; R06.2 Wheezing; R19.7 Diarrhea, unspecified; O21.9 Vomiting of pregnancy, unspecified; O99.330 Smoking (tobacco) complicating pregnancy, unspecified trimester; Z3A.00 Weeks of gestation of pregnancy not specified; Z79.891 Long term (current) use of opiate analgesic; Z91.048 Other nonmedicinal substance allergy status; Z91.040 Latex allergy status
CPT/HCPCS: 94640; 99283; J3490; J7620

== ENCOUNTER 2018-04-20 17:55 | Emergency (ER) | payer MEDICAID ==
[2018-04-20 18:12] VITALS: BP 165/95
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
[2018-04-20 19:24] LABS: ABSOLUTE EOSINOPHILS # (AUTO) 0.1 10^3/uL (0.0-0.6); ABSOLUTE MONOCYTES (AUTO) 0.3 10^3/uL (0.1-1.4); ABSOLUTE NEUT (AUTO) 4.4 10^3/uL (1.7-8.2); BASOPHILS % (AUTO) 0.3 % (0-2); EOSINOPHILS % (AUTO) 0.9 % (0-6); HEMATOCRIT 35.8 % (36.0-47.0); HEMOGLOBIN 12.4 g/dL (12.0-15.5); LYMPHOCYTES % (AUTO) 29.1 % (13-45); MEAN CORPUSCULAR HEMOGLOBIN 29.7 pg (27.0-33.4); MEAN CORPUSCULAR HGB CONC 34.7 g/dL (32.0-36.0); MEAN CORPUSCULAR VOLUME 86 fl (80-97); MONOCYTES % (AUTO) 4.3 % (3-13); PLATELET COUNT 130 10^3/uL (150-450); RED BLOOD COUNT 4.18 10^6/uL (3.72-5.28); RED CELL DISTRIBUTION WIDTH 13.9 % (11.5-14.0); SEGMENTED NEUTROPHILS % (AUTO) 65.4 % (42-78); TOTAL CELLS COUNTED % (AUTO) 100 %; WHITE BLOOD COUNT 6.7 10^3/uL (4.0-10.5)
[2018-04-20 19:29] LABS: APPEARANCE,URINE SLIGHTLY-CLOUDY; BILIRUBIN,URINE SMALL (NEGATIVE); GLUCOSE, URINE 50 mg/dL (NEGATIVE); KETONES,URINE NEGATIVE (NEGATIVE); LEUKOCYTE ESTERASE,URINE NEGATIVE (NEGATIVE); NITRITE,URINE NEGATIVE (NEGATIVE); PROTEIN,URINE 30 mg/dL (NEGATIVE); URINE SPECIFIC GRAVITY 1.036
[2018-04-20 19:30] LABS: COLOR,URINE YELLOW
[2018-04-20 19:38] LABS: ALANINE AMINOTRANSFERASE 24 U/L (9-52); ALBUMIN 3.4 g/dL (3.5-5.0); ALKALINE PHOSPHATASE 65 U/L (38-126); ANION GAP 6 (5-19); ASPARTATE AMINO TRANSFERASE 20 U/L (14-36); BILIRUBIN,DIRECT 0.2 mg/dL (0.0-0.4); BILIRUBIN,TOTAL 0.3 mg/dL (0.2-1.3); BLOOD UREA NITROGEN 10 mg/dL (7-20); CALCIUM 8.9 mg/dL (8.4-10.2); CARBON DIOXIDE 24 mmol/L (22-30); CHLORIDE 108 mmol/L (98-107); GLUCOSE 86 mg/dL (75-110); POTASSIUM 3.7 mmol/L (3.6-5.0); SODIUM 138.2 mmol/L (137-145); TOTAL PROTEIN 6.2 g/dL (6.3-8.2)
[2018-04-20 19:39] LABS: ALCOHOL < 10 mg/dL (NONE DETECTED)
[2018-04-20 19:40] LABS: URINE AMPHETAMINES SCREEN NEGATIVE; URINE BARBITURATES SCREEN NEGATIVE; URINE BENZODIAZEPINES SCREEN NEGATIVE; URINE COCAINE SCREEN UNCONFIRMED POSITIVE; URINE MARIJUANA (THC) SCREEN NEGATIVE; URINE METHADONE SCREEN NEGATIVE
[2018-04-20 19:48] LABS: URINE PHENCYCLIDINE SCREEN NEGATIVE
--- NOTE | 2018-04-22 00:59 | EKG REPORT ---
SEVERITY:- OTHERWISE NORMAL ECG - SINUS RHYTHM BORDERLINE RIGHT AXIS DEVIATION MINIMAL ST DEPRESSION, INFERIOR LEADS : Confirmed by: Krissy Burt MD 22-Apr-2018 00:58:19
== END 2018-04-20 19:16 | disposition left against medical advice (07) ==
LOC: ER 17:55
DX: L30.9 Dermatitis, unspecified (principal); Z91.040 Latex allergy status; Z90.49 Acquired absence of other specified parts of digestive tract
CPT/HCPCS: 36415; 80053; 80307; 81001; 84443; 85025; 93005; 93010; 99283

== ENCOUNTER 2018-05-22 20:50 | Emergency (ER) | payer MEDICAID ==
[2018-05-23] MEDS ORDERED: CLINDAMYCIN HCL 150 MG CAPSULE PO ONE (01:43)
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
[2018-05-23 01:57] VITALS: BP 119/72
== END 2018-05-23 01:57 | disposition home or self-care (01) ==
LOC: ER 20:50
DX: O26.93 Pregnancy related conditions, unspecified, third trimester (principal); L02.415 Cutaneous abscess of right lower limb; L03.115 Cellulitis of right lower limb; O99.333 Smoking (tobacco) complicating pregnancy, third trimester; Z91.040 Latex allergy status; Z86.14 Personal history of Methicillin resistant Staphylococcus aureus infection; Z90.49 Acquired absence of other specified parts of digestive tract
CPT/HCPCS: 99282; J3490

== ENCOUNTER 2018-06-24 12:11 | Emergency (ER) | payer MEDICAID ==
[2018-06-24 12:53] VITALS: BP 106/65
== END 2018-06-24 14:35 | disposition left against medical advice (07) ==
LOC: ER 12:11
DX: Z53.21 Procedure and treatment not carried out due to patient leaving prior to being seen by health care provider (principal)

== ENCOUNTER 2018-06-24 18:30 | Emergency (ER) | payer MEDICAID ==
[2018-06-24 19:21] VITALS: BP 118/76
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
[2018-06-24 21:05] LABS: APPEARANCE,URINE TURBID; BILIRUBIN,URINE SMALL (NEGATIVE); COLOR,URINE YELLOW; GLUCOSE, URINE 50 mg/dL (NEGATIVE); KETONES,URINE TRACE mg/dL (NEGATIVE); LEUKOCYTE ESTERASE,URINE NEGATIVE (NEGATIVE); NITRITE,URINE NEGATIVE (NEGATIVE); PROTEIN,URINE 100 mg/dL (NEGATIVE); URINE SPECIFIC GRAVITY 1.035
[2018-06-24 21:24] LABS: URINE AMPHETAMINES SCREEN NEGATIVE; URINE BARBITURATES SCREEN NEGATIVE; URINE BENZODIAZEPINES SCREEN NEGATIVE; URINE COCAINE SCREEN UNCONFIRMED POSITIVE; URINE MARIJUANA (THC) SCREEN NEGATIVE; URINE METHADONE SCREEN NEGATIVE; URINE PHENCYCLIDINE SCREEN NEGATIVE
--- NOTE | 2018-06-26 07:57 | EKG REPORT ---
SEVERITY:- BORDERLINE ECG - SINUS RHYTHM PROBABLE LEFT ATRIAL ABNORMALITY : Confirmed by: Zechariah Cardoso MD 26-Jun-2018 07:56:30
== END 2018-06-24 22:10 | disposition left against medical advice (07) ==
LOC: ER 18:30
DX: O99.320 Drug use complicating pregnancy, unspecified trimester (principal); F11.10 Opioid abuse, uncomplicated; F14.10 Cocaine abuse, uncomplicated; O99.330 Smoking (tobacco) complicating pregnancy, unspecified trimester; Z3A.00 Weeks of gestation of pregnancy not specified; Z91.048 Other nonmedicinal substance allergy status; Z91.040 Latex allergy status; Z53.20 Procedure and treatment not carried out because of patient's decision for unspecified reasons
CPT/HCPCS: 80307; 81001; 93005; 93010; 99281

== ENCOUNTER 2018-09-17 02:00 | Emergency (ER) | payer MEDICAID ==
[2018-09-17 02:16] VITALS: BP 114/70
[2018-09-17] MEDS ORDERED: PREDNISONE 20 MG TABLET PO ONE (03:55)
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
== END 2018-09-17 04:16 | disposition home or self-care (01) ==
LOC: ER 02:00
DX: R21 Rash and other nonspecific skin eruption (principal); Z91.040 Latex allergy status; Z90.49 Acquired absence of other specified parts of digestive tract
CPT/HCPCS: 99282; J7512

== ENCOUNTER 2018-10-14 11:51 | Observation (INO) | payer MEDICAID ==
[2018-10-14] MEDS ORDERED: NORMAL SALINE 1000 ML 1,000 ML IV ONE ×2 (12:25→15:23)
[2018-10-14] MEDS ORDERED: ONDANSETRON HCL INJ/PF 4 MG/2 ML SDV IV ONE (12:25)
[2018-10-14] MEDS ORDERED: LORAZEPAM INJ 2 MG/1 ML VIAL IV ONE (12:27)
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
--- NOTE | 2018-10-14 13:00 | RADIOLOGY REPORT (SQ) ---
EXAM DESCRIPTION: CHEST 2 VIEWS COMPLETED DATE/TIME: 10/14/2018 12:50 pm REASON FOR STUDY: cough/cp COMPARISON: 12/01/2016. EXAM PARAMETERS: NUMBER OF VIEWS: two views TECHNIQUE: Digital Frontal and Lateral radiographic views of the chest acquired. RADIATION DOSE: NA LIMITATIONS: none FINDINGS: LUNGS AND PLEURA: Infiltrate in the medial right lung base. Left lung clear. No pleural effusion. No pneumothorax. MEDIASTINUM AND HILAR STRUCTURES: No masses or contour abnormalities. HEART AND VASCULAR STRUCTURES: Heart normal size. No evidence for failure. BONES: No acute findings. HARDWARE: None in the chest. OTHER: No other significant finding. IMPRESSION: INFILTRATE IN THE MEDIAL RIGHT LUNG BASE SUSPICIOUS FOR PNEUMONIA. TECHNICAL DOCUMENTATION: JOB ID: [id number] [employer]- All Rights Reserved Reading location - IP/workstation name: [email or web address]
[2018-10-14 13:21] LABS: ABSOLUTE LYMPHOCYTES (AUTO) 0.6 10^3/uL (0.5-4.7); ABSOLUTE MONOCYTES (AUTO) 0.3 10^3/uL (0.1-1.4); ABSOLUTE NEUT (AUTO) 5.7 10^3/uL (1.7-8.2); BASOPHILS % (AUTO) 0.3 % (0-2); EOSINOPHILS % (AUTO) 0.6 % (0-6); HEMATOCRIT 36.3 % (36.0-47.0); HEMOGLOBIN 12.1 g/dL (12.0-15.5); LYMPHOCYTES % (AUTO) 9.2 % (13-45); MEAN CORPUSCULAR HEMOGLOBIN 25.6 pg (27.0-33.4); MEAN CORPUSCULAR HGB CONC 33.2 g/dL (32.0-36.0); MEAN CORPUSCULAR VOLUME 77 fl (80-97); PLATELET COUNT 219 10^3/uL (150-450); RED BLOOD COUNT 4.71 10^6/uL (3.72-5.28); RED CELL DISTRIBUTION WIDTH 16.7 % (11.5-14.0); SEGMENTED NEUTROPHILS % (AUTO) 85.9 % (42-78); TOTAL CELLS COUNTED % (AUTO) 100 %; WHITE BLOOD COUNT 6.6 10^3/uL (4.0-10.5)
[2018-10-14 13:31] LABS: APPEARANCE,URINE CLEAR; BILIRUBIN,URINE NEGATIVE (NEGATIVE); COLOR,URINE YELLOW; GLUCOSE, URINE NEGATIVE (NEGATIVE); KETONES,URINE NEGATIVE (NEGATIVE); LEUKOCYTE ESTERASE,URINE NEGATIVE (NEGATIVE); NITRITE,URINE NEGATIVE (NEGATIVE); PROTEIN,URINE NEGATIVE (NEGATIVE); URINE SPECIFIC GRAVITY 1.016; UROBILINOGEN,URINE NEGATIVE mg/dL (<2.0)
[2018-10-14 13:40] LABS: ALANINE AMINOTRANSFERASE 14 U/L (9-52); ALBUMIN 3.9 g/dL (3.5-5.0); ALKALINE PHOSPHATASE 76 U/L (38-126); ANION GAP 14 (5-19); ASPARTATE AMINO TRANSFERASE 15 U/L (14-36); BILIRUBIN,DIRECT 0.3 mg/dL (0.0-0.4); BILIRUBIN,TOTAL 0.4 mg/dL (0.2-1.3); BLOOD UREA NITROGEN 11 mg/dL (7-20); CALCIUM 9.7 mg/dL (8.4-10.2); CARBON DIOXIDE 29 mmol/L (22-30); CHLORIDE 98 mmol/L (98-107); CREATINE KINASE 29 U/L (30-135); GLUCOSE 96 mg/dL (75-110); LIPASE 10.6 U/L (23-300); POTASSIUM 4.2 mmol/L (3.6-5.0); SODIUM 140.7 mmol/L (137-145); TOTAL PROTEIN 7.4 g/dL (6.3-8.2)
[2018-10-14] MEDS ORDERED: CEFTRIAXONE INJ 1000 MG VIAL IV ONE (13:40)
[2018-10-14 13:48] LABS: URINE AMPHETAMINES SCREEN NEGATIVE; URINE BARBITURATES SCREEN NEGATIVE; URINE BENZODIAZEPINES SCREEN NEGATIVE; URINE COCAINE SCREEN UNCONFIRMED POSITIVE; URINE MARIJUANA (THC) SCREEN NEGATIVE; URINE METHADONE SCREEN NEGATIVE; URINE PHENCYCLIDINE SCREEN NEGATIVE
[2018-10-14 13:53] LABS: VENOUS BLOOD HCO3 26.7 mmol/L (20-32); VENOUS BLOOD PCO2 42.3 mmHg (35-63); VENOUS BLOOD PH 7.42 (7.30-7.42)
[2018-10-14] MEDS ORDERED: AZITHROMYCIN INJ 500 MG VIAL IV ONE (13:55)
[2018-10-14 14:03] LABS: CREATINE KINASE MB 0.59 ng/mL (<4.55); NT PRO BNP 194 pg/mL (<125)
[2018-10-14 14:08] LABS: TROPONIN I < 0.012 ng/mL
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
[2018-10-14] MEDS ORDERED: NALOXONE HCL INJ/PF 0.4 MG/1 ML SDV IV ONE ×2 (14:57→15:40)
--- NOTE | 2018-10-14 15:00 | ER Document Report ---
Doctor's Note Notes: 10/14/18 14:57 27-year-old female who presents today stating runny nose and congestion for a week followed by cough and fever for 2 days. She admits to IV drug abuse with heroin. Patient denies headache, sore throat, neck pain, abdominal pain, or lower extremity pain. History of chronic back pain. She denies any dysuria. On examination the patient has excessively sleepy. Easily arousable. Injected conjunctiva. Bilateral copious nonpurulent rhinorrhea. No facial swelling or bogginess. No posterior pharyngeal swelling. No cervical lymphadenopathy. Supple neck. Heart and lung examination is unremarkable with some rhonchi to the right lower lobe. Patient has bruising to bilateral breast. She states that this is where she injects heroin. Elevated BMI. No tenderness to palpation of the abdomen. On back examination the patient has tenderness to palpation to the upper level and paraspinal aspects of the back. No focal tenderness. No erythema or induration noted. No step-offs appreciated. No lower extremity edema. Given the above history and physical, blood cultures, x-ray of the chest, and la bs were ordered. Patient appears to have a pneumonia. Given the patient's somnolence with vomiting here, with heroin abuse, we will start the patient on antibiotics and admit the patient to the hospitalist service for further evaluation and treatment. Given the nonspecific back pain for many years with the examination as above showing no focal tenderness, erythema, or induration, I do believe discitis or epidural abscess to be likely at this moment.
[2018-10-14] MEDS ORDERED: LEVOFLOXACIN 750 MG/D5W RTU 750 MG/150 ML RTUPB IV ONE ×2 (15:39→19:30)
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
--- NOTE | 2018-10-14 20:16 | EKG REPORT ---
SEVERITY:- OTHERWISE NORMAL ECG - SINUS TACHYCARDIA : Confirmed by: Zechariah Cardoso MD 14-Oct-2018 20:15:54
[2018-10-14] MEDS: HEPARIN SOD (PORCINE) 5,000 UNIT/ML 1 ML SYRINGE SUBCUT SCH (21:51)
[2018-10-15] MEDS ORDERED: LORAZEPAM INJ 2 MG/1 ML VIAL IV PRN (08:01)
[2018-10-15] MEDS ORDERED: GUAIFENESIN 600 MG TABLET.SA PO SCH (10:00)
[2018-10-15] MEDS ORDERED: LEVOFLOXACIN 500 MG TABLET PO SCH (10:00)
[2018-10-15] MEDS: HEPARIN SOD (PORCINE) 5,000 UNIT/ML 1 ML SYRINGE SUBCUT SCH (11:11)
--- NOTE | 2018-10-15 11:32 | PDOC PROGRESS REPORT ---
Subjective Progress Note for:: 10/15/18 Subjective:: KAUSHAL INFANTE is a 27 year old female with a past medical history of bipolar disorder, depression and polysubstance abuse who presented to the ER with cough and shaking. Per ER provider, she has been complaining of almost a week of having cough, nasal congestion and generalized shaking. In the ER, vital signs are stable. She is saturating well on room air. Heart rate at 101. Work-up was remarkable for a right-sided pneumonia. UDS is positive for opiates and cocaine. She is slightly lethargic in the room. She was given a dose of Narcan with only minimal relief. She denies drug use to me but she did admit to the ER provider initially that she uses IV heroin and injects it on her breast. Upon encounter, she does appear he is sleepy. She is readily arousable and is oriented to person, place she does state that she has been having cough but is unable to sustain a prolonged. She denies headache or neck pain or stiffness. No nuchal rigidity. Unable to appreciate a murmur on exam. 10/15/2018. No acute events overnight. Patient alert oriented x4. Cooperative with physical examination. In no apparent distress. Denies any fever, chills, nausea, vomiting, diarrhea, constipation or any urinary symptoms. UDS has been positive for cocaine and opiates as well as chest x-ray possible pneumonia. Will examination patient has right lung crackles to be due to pneumonia, will switch to p.o. antibiotics in anticipation of discharge tomorrow. Reason For Visit: ACUTE ENCEPHALOPATHY, POSSIBLE ASPIRATION Physical Exam Vital Signs: Temp Pulse Resp BP Pulse Ox 98.1 F 79 18 119/67 100 10/15/18 07:48 10/15/18 07:48 10/14/18 23:39 10/15/18 07:48 10/15/18 07:48 Intake & Output 10/14/18 10/15/18 10/16/18 06:59 06:59 06:59 Intake Total 1450 Balance 1450 Weight 83.1 kg General appearance: PRESENT: no acute distress, well-developed, well-nourished Head exam: PRESENT: atraumatic, normocephalic Eye exam: PRESENT: conjunctiva pink, EOMI, PERRLA. ABSENT: scleral icterus Ear exam: PRESENT: normal external ear exam Mouth exam: PRESENT: moist, tongue midline Neck exam: ABSENT: carotid bruit, JVD, lymphadenopathy, thyromegaly Respiratory exam: PRESENT: crackles - Right upper lobe.. ABSENT: rales, rhonchi, wheezes Cardiovascular exam: PRESENT: RRR. ABSENT: diastolic murmur, rubs, systolic murmur Pulses: PRESENT: normal dorsalis pedis pul Vascular exam: PRESENT: normal capillary refill GI/Abdominal exam: PRESENT: normal bowel sounds, soft. ABSENT: distended, guarding, mass, organolmegaly, rebound, tenderness Rectal exam: PRESENT: deferred Extremities exam: PRESENT: full ROM. ABSENT: calf tenderness, clubbing, pedal edema Neurological exam: PRESENT: alert, awake, oriented to person, oriented to place, oriented to time, oriented to situation, CN II-XII grossly intact. ABSENT: motor sensory deficit Psychiatric exam: PRESENT: appropriate affect, normal mood. ABSENT: homicidal ideation, suicidal ideation Skin exam: PRESENT: dry, intact, warm. ABSENT: cyanosis, rash Results Laboratory Results: 10/14/18 13:00 10/14/18 13:00 10/14/18 10/14/18 10/14/18 13:00 13:00 13:00 WBC 6.6 RBC 4.71 Hgb 12.1 Hct 36.3 MCV 77 L MCH 25.6 L MCHC 33.2 RDW 16.7 H Plt Count 219 Seg Neutrophils % 85.9 H Lymphocytes % 9.2 L Monocytes % 4.0 Eosinophils % 0.6 Basophils % 0.3 Absolute Neutrophils 5.7 Absolute Lymphocytes 0.6 Absolute Monocytes 0.3 Absolute Eosinophils 0.0 Absolute Basophils 0.0 VBG pH VBG pCO2 VBG HCO3 VBG Base Excess Sodium 140.7 Potassium 4.2 Chloride 98 Carbon Dioxide 29 Anion Gap 14 BUN 11 Creatinine 0.61 Est GFR ( Amer) > 60 Est GFR (Non-Af Amer) > 60 Glucose 96 Lactic Acid Calcium 9.7 Total Bilirubin 0.4 AST 15 ALT 14 Alkaline Phosphatase 76 Total Protein 7.4 Albumin 3.9 Lipase 10.6 L Urine Color YELLOW Urine Appearance CLEAR Urine pH 6.0 Ur Specific [place] 1.016 Urine Protein NEGATIVE Urine Glucose (UA) NEGATIVE Urine Ketones NEGATIVE Urine Blood NEGATIVE Urine Nitrite NEGATIVE Ur Leukocyte Esterase NEGATIVE Urine WBC (Auto) 1 Urine RBC (Auto) 1 10/14/18 10/14/18 13:39 13:39 WBC RBC Hgb Hct MCV MCH MCHC RDW Plt Count Seg Neutrophils % Lymphocytes % Monocytes % Eosinophils % Basophils % Absolute Neutrophils Absolute Lymphocytes Absolute Monocytes Absolute Eosinophils Absolute Basophils VBG pH 7.42 VBG pCO2 42.3 VBG HCO3 26.7 VBG Base Excess 2.0 Sodium Potassium Chloride Carbon Dioxide Anion Gap BUN Creatinine Est GFR ( Amer) Est GFR (Non-Af Amer) Glucose Lactic Acid 1.1 Calcium Total Bilirubin AST ALT Alkaline Phosphatase Total Protein Albumin Lipase Urine Color Urine Appearance Urine pH Ur Specific [place] Urine Protein Urine Glucose (UA) Urine Ketones Urine Blood Urine Nitrite Ur Leukocyte Esterase Urine WBC (Auto) Urine RBC (Auto) 10/14/18 10/14/18 13:00 13:00 Creatine Kinase 29 L CK-MB (CK-2) 0.59 Troponin I < 0.012 NT-Pro-B Natriuret Pep 194 H Impressions: Chest X-Ray 10/14/18 12:24 IMPRESSION: INFILTRATE IN THE MEDIAL RIGHT LUNG BASE SUSPICIOUS FOR PNEUMONIA. Assessment and Plan - Diagnosis (1) Acute encephalopathy Is this a current diagnosis for this admission?: Yes Plan: Resolved. Likely toxic encephalopathy/community-acquired pneumonia. Alert and oriented x4, does not appear to be in any acute distress. Does have history of IV drug abuse, stating she has not abused any drugs recently. 10/14/2018: UDS positive for opiates and cocaine. (2) Pneumonia Qualifiers: Pneumonia type: due to unspecified organism Laterality: right Lung location: lower lobe of lung Qualified Code(s): J18.1 - Lobar pneumonia, unspecified organism Is this a current diagnosis for this admission?: Yes Plan: Likely community-acquired pneumonia caused by gram-positive including strep pneumo VS aspiration pneumonia/pneumonitis. Afebrile, saturating WNL on RA. Cultures no growth so far. Received IV levofloxacin and azithromycin on admission. Switch to p.o. levofloxacin in anticipation of discharge tomorrow. (3) IV drug user Is this a current diagnosis for this admission?: Yes Plan: No murmur appreciated on exam. No physical sign of endocarditis. Afebrile, WBC WNL. Known history of IV drug abuse including heroin in the past. UDS positive for cocaine and opiates. Monitor for withdrawals.
[2018-10-15] MEDS ORDERED: OXYCODONE-ACETAMINOPHEN 5-325 MG TABLET PO PRN (12:25)
[2018-10-15 12:51] VITALS: BP 106/66
[2018-10-15] MEDS ORDERED: FOLIC ACID/VITAMIN B COMP W-C CAPSULE PO SCH (16:00)
== END 2018-10-15 13:40 | disposition left against medical advice (07) ==
LOC: ER 11:51 → EH 15:52 → 4N 18:18
PROVIDERS: ADMIT Internal Medicine; ATTEND Internal Medicine
DX: G93.40 Encephalopathy, unspecified (principal); F11.90 Opioid use, unspecified, uncomplicated; F31.9 Bipolar disorder, unspecified; F19.10 Other psychoactive substance abuse, uncomplicated; J18.1 Lobar pneumonia, unspecified organism; R11.2 Nausea with vomiting, unspecified; R10.9 Unspecified abdominal pain; G25.89 Other specified extrapyramidal and movement disorders; Z87.820 Personal history of traumatic brain injury; Z90.49 Acquired absence of other specified parts of digestive tract; Z98.890 Other specified postprocedural states
CPT/HCPCS: 93005; 36415; 87040; 87086; 82553; 82550; 83690; 85025; 80053; 81001; 84484; 86701; 80307; 82803; 83605; 83880; 71046; 93010; G0378 ×3; J3490 ×2; J2310; J2060; J0696; J2405; J7030; J0456; J1956

== ENCOUNTER 2020-02-19 15:34 | Emergency (ER) | payer MEDICAID ==
[2020-02-19] MEDS ORDERED: KETOROLAC TROMETHAMINE 60 MG/2 ML SDV IM ONE (17:09)
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
--- NOTE | 2020-02-19 18:13 | RADIOLOGY REPORT (SQ) ---
EXAM DESCRIPTION: ANKLE RIGHT COMPLETE IMAGES COMPLETED DATE/TIME: 02/19/2020 6:01 pm REASON FOR STUDY: ankle pain, fall COMPARISON: None. NUMBER OF VIEWS: Three views. TECHNIQUE: AP, lateral, and oblique radiographic images acquired of the right ankle. LIMITATIONS: None. FINDINGS: MINERALIZATION: Normal. BONES: No acute fracture or dislocation. No worrisome bone lesions. JOINTS: No effusions. SOFT TISSUES: No soft tissue swelling. No foreign body. OTHER: No other significant finding. IMPRESSION: NEGATIVE STUDY OF THE RIGHT ANKLE. NO RADIOGRAPHIC EVIDENCE OF ACUTE INJURY. TECHNICAL DOCUMENTATION: JOB ID: [id number] 2010 [employer]- All Rights Reserved Reading location - IP/workstation name: [email or web address]
--- NOTE | 2020-02-19 18:14 | RADIOLOGY REPORT (SQ) ---
EXAM DESCRIPTION: FOOT RIGHT COMPLETE IMAGES COMPLETED DATE/TIME: 02/19/2020 6:01 pm REASON FOR STUDY: left foot pain COMPARISON: None. NUMBER OF VIEWS: Three views. TECHNIQUE: AP, lateral and oblique radiographic images acquired of the right foot. LIMITATIONS: None. FINDINGS: MINERALIZATION: Normal. BONES: No acute fracture or dislocation. No worrisome bone lesions. JOINTS: No effusions. SOFT TISSUES: No soft tissue swelling. No foreign body. OTHER: No other significant finding. IMPRESSION: NEGATIVE STUDY OF THE RIGHT FOOT. NO RADIOGRAPHIC EVIDENCE OF ACUTE INJURY. TECHNICAL DOCUMENTATION: JOB ID: [id number] 2010 [employer]- All Rights Reserved Reading location - IP/workstation name: [email or web address]
--- NOTE | 2020-02-19 18:17 | RADIOLOGY REPORT (SQ) ---
EXAM DESCRIPTION: L SPINE WHOLE IMAGES COMPLETED DATE/TIME: 02/19/2020 6:01 pm REASON FOR STUDY: low back pain COMPARISON: None. NUMBER OF VIEWS: Five views including obliques. TECHNIQUE: AP, lateral, oblique, and sacral radiographic images acquired of the lumbar spine. LIMITATIONS: None. FINDINGS: MINERALIZATION: Normal. SEGMENTATION: Normal. No transitional anatomy. ALIGNMENT: Mild levoscoliosis. VERTEBRAE: Maintained height. No fracture or worrisome bone lesion. DISCS: Disc spaces are mildly narrowed from C3-S1. POSTERIOR ELEMENTS: Pedicles and facets are intact. No pars defect or posterior arch defects. HARDWARE: None in the spine. PARASPINAL SOFT TISSUES: Normal. PELVIS: Intact as visualized. No fractures or worrisome bone lesions. SI joints intact. OTHER: No other significant finding. IMPRESSION: Mild degenerative disc changes. Mild scoliosis. TECHNICAL DOCUMENTATION: JOB ID: [id number] 2010 [employer]- All Rights Reserved Reading location - IP/workstation name: [email or web address]
[2020-02-19 18:51] LABS: INTERNATIONAL RATION (INR) 0.83; PROTHROMBIN TIME 11.6 SEC (11.4-15.4)
[2020-02-19 18:52] LABS: PARTIAL THROMBOPLASTIN TIME 38.9 SEC (23.5-35.8)
[2020-02-19 18:54] LABS: APPEARANCE,URINE SLIGHTLY-CLOUDY; BILIRUBIN,URINE SMALL (NEGATIVE); COLOR,URINE AMBER; GLUCOSE, URINE NEGATIVE (NEGATIVE); KETONES,URINE TRACE mg/dL (NEGATIVE); PROTEIN,URINE 30 mg/dL (NEGATIVE); URINE SPECIFIC GRAVITY 1.031
[2020-02-19 18:58] LABS: ABSOLUTE EOSINOPHILS # (AUTO) 0.2 10^3/uL (0.0-0.6); ABSOLUTE LYMPHOCYTES (AUTO) 1.7 10^3/uL (0.5-4.7); ABSOLUTE MONOCYTES (AUTO) 0.3 10^3/uL (0.1-1.4); ABSOLUTE NEUT (AUTO) 4.4 10^3/uL (1.7-8.2); BASOPHILS % (AUTO) 0.5 % (0-2); EOSINOPHILS % (AUTO) 2.9 % (0-6); HEMATOCRIT 38.1 % (36.0-47.0); HEMOGLOBIN 12.9 g/dL (12.0-15.5); LYMPHOCYTES % (AUTO) 25.2 % (13-45); MEAN CORPUSCULAR HEMOGLOBIN 29.5 pg (27.0-33.4); MEAN CORPUSCULAR HGB CONC 33.8 g/dL (32.0-36.0); MEAN CORPUSCULAR VOLUME 87 fl (80-97); MONOCYTES % (AUTO) 5.2 % (3-13); PLATELET COUNT 209 10^3/uL (150-450); RED BLOOD COUNT 4.37 10^6/uL (3.72-5.28); RED CELL DISTRIBUTION WIDTH 13.4 % (11.5-14.0); SEGMENTED NEUTROPHILS % (AUTO) 66.2 % (42-78); TOTAL CELLS COUNTED % (AUTO) 100 %; WHITE BLOOD COUNT 6.7 10^3/uL (4.0-10.5)
[2020-02-19 19:16] LABS: ALBUMIN 3.6 g/dL (3.5-5.0); ALKALINE PHOSPHATASE 64 U/L (38-126); ANION GAP 6 (5-19); ASPARTATE AMINO TRANSFERASE 55 U/L (14-36); BILIRUBIN,DIRECT 0.3 mg/dL (0.0-0.4); BILIRUBIN,TOTAL 0.3 mg/dL (0.2-1.3); BLOOD UREA NITROGEN 12 mg/dL (7-20); CALCIUM 9.3 mg/dL (8.4-10.2); CARBON DIOXIDE 27 mmol/L (22-30); CHLORIDE 103 mmol/L (98-107); GLUCOSE 108 mg/dL (75-110); POTASSIUM 4.3 mmol/L (3.6-5.0); TOTAL PROTEIN 6.2 g/dL (6.3-8.2)
[2020-02-20] MEDS ORDERED: HYDROCODONE/ACETAMINOPHEN 5-325 MG TABLET PO ONE (00:38)
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
--- NOTE | 2020-02-20 07:52 | RADIOLOGY REPORT (SQ) ---
CLINICAL HISTORY: question of metal presence COMPARISON: None. TECHNIQUE: XR HUMERUS 02/20/2020 7:14 AM CDT FINDINGS: There is no fracture. Joint spaces are preserved. There are multiple radiopaque foreign bodies within the soft tissues of the upper left arm. These measure up to 5 mm. IMPRESSION: Multiple radiopaque foreign bodies within the soft tissues of the upper left arm.
[2020-02-20] MEDS ORDERED: LORAZEPAM 1 MG TABLET PO ONE (07:56)
--- NOTE | 2020-02-20 07:59 | RADIOLOGY REPORT (SQ) ---
Left forearm x-ray two views on 02/20/2020 at 7:26 AM CLINICAL INDICATION: Metal foreign body COMPARISON: None FINDINGS: There are some probable vascular calcifications in the distal upper arm. Some of this could represent tiny radiopaque foreign bodies. There are no fractures. Visualized joints are well aligned. No bony abnormality is noted. IMPRESSION: No acute abnormality.
--- NOTE | 2020-02-20 09:22 | RADIOLOGY REPORT (SQ) ---
EXAM DESCRIPTION: MRI LUMBAR SPINE COMBO IMAGES COMPLETED DATE/TIME: 02/20/2020 9:06 am REASON FOR STUDY: IV drug use, back pain COMPARISON: 02/19/2020 radiograph TECHNIQUE: Sagittal and Axial imaging includes T1, T1 post gadolinium, T2, STIR and gradient echo se quences. Coronal T2/HASTE imaging. CONTRAST TYPE AND DOSE: 20 mL Prohance. RENAL FUNCTION: Not indicated. ACR Type II contrast agent associated with few, if any, unconfounded cases of NSF LIMITATIONS: Body habitus FINDINGS: VISUALIZED UPPER ABDOMEN: Limited evaluation. No acute or suspicious findings suggested. SEGMENTATION: No transitional anatomy. The lowest well-developed disc space is labeled L5-S1. ALIGNMENT: Mild straightening of the normal lumbar lordosis. Grade 1 retrolisthesis of L5 in relatio n to S1. VERTEBRAE: Intact. No fractures. BONE MARROW: Normal. No marrow replacement or reactive changes. DISC SIGNAL: Disc desiccation at L4-5 and L5-S1. POSTERIOR ELEMENTS: Generally intact. No pars defect evident. HARDWARE: None in the spine. CORD AND CONUS: Normal in size and signal intensity. Conus medullaris terminates at L1-2. SOFT TISSUES: No aortic aneurysm seen. No bulky retroperitoneal adenopathy or mass. No paraspinal mas s or fluid. L1-L2: No significant spinal stenosis or exit foraminal stenosis. L2-L3: No significant spinal stenosis or exit foraminal stenosis. L3-L4: No significant spinal stenosis or exit foraminal stenosis. L4-L5: Disc desiccation and mild height loss. There is small posterior circumferential disc bulge ca using mild canal stenosis and lateral recess narrowing. Minimal neural foraminal narrowing secondary to disc bulge, left greater than right. L5-S1: Disc desiccation and height loss with mild circumferential disc bulge. No high-grade spinal c anal stenosis. Minimal bilateral neural foraminal narrowing from disc disease. LOWER THORACIC: See same-day thoracic MRI SACRUM: Visualized upper sacrum intact. ENHANCEMENT: No abnormal enhancement. OTHER: No other significant findings. IMPRESSION: 1. No evidence of acute bony abnormality of of the lumbar spine. Specifically, no evid ence of discitis. 2. Mild degenerative changes at L4-5 and L5-S1 with disc desiccation and height loss. No significan t spinal canal stenosis or neural foraminal narrowing. TECHNICAL DOCUMENTATION: JOB ID: [id number] 2010 [employer]- All Rights Reserved Reading location - IP/workstation name: [email or web address]
--- NOTE | 2020-02-20 09:41 | RADIOLOGY REPORT (SQ) ---
EXAM DESCRIPTION: MRI THORACIC SPINE COMBO IMAGES COMPLETED DATE/TIME: 02/20/2020 9:06 am REASON FOR STUDY: IV drug use, back pain COMPARISON: 02/19/2020 TECHNIQUE: Sagittal and Axial imaging includes T1, T2, STIR and gradient echo sequences. T1 post ga dolinium sequences. CONTRAST TYPE AND DOSE: 20 mL ProHance RENAL FUNCTION: None required. The patient is less than 50 years old. LIMITATIONS: Body habitus FINDINGS: LOCALIZER: No worrisome findings. ALIGNMENT: Normal. VERTEBRAE: Intact. BONE MARROW: Normal. No marrow replacement or reactive changes. HARDWARE: None in the spine. CORD: Normal in size and signal intensity. SOFT TISSUES: No soft tissue masses. THORACIC DISCS T1-T12: Small left paracentral disc bulge at T3-4 causing mild effacement of the anter ior CSF column on the left. No high-grade spinal canal stenosis or neural foraminal narrowing. LOWER CERVICAL: Incompletely imaged. No significant spinal stenosis or exit foraminal stenosis. UPPER LUMBAR: See same-day lumbar MRI. ENHANCEMENT: No abnormal enhancement. OTHER: No other significant finding. IMPRESSION: 1. No evidence of acute bony abnormality of the thoracic spine. Specifically no eviden ce of discitis/osteomyelitis. 2. Mild left paracentral disc bulge at T3-4. No high-grade spinal canal stenosis or neural foramina l narrowing. TECHNICAL DOCUMENTATION: JOB ID: [id number] 2010 [employer]- All Rights Reserved Reading location - IP/workstation name: [email or web address]
[2020-02-20 12:24] VITALS: BP 124/71
== END 2020-02-20 12:20 | disposition home or self-care (01) ==
LOC: ER 15:34
DX: M51.36 Other intervertebral disc degeneration, lumbar region (principal); M51.37 Other intervertebral disc degeneration, lumbosacral region; M51.34 Other intervertebral disc degeneration, thoracic region; M51.84 Other intervertebral disc disorders, thoracic region; M41.9 Scoliosis, unspecified; N39.0 Urinary tract infection, site not specified; M79.5 Residual foreign body in soft tissue; M25.572 Pain in left ankle and joints of left foot; M25.471 Effusion, right ankle; W19.XXXA Unspecified fall, initial encounter; S30.0XXA Contusion of lower back and pelvis, initial encounter; X58.XXXA Exposure to other specified factors, initial encounter; R20.8 Other disturbances of skin sensation; F17.200 Nicotine dependence, unspecified, uncomplicated; Z91.048 Other nonmedicinal substance allergy status; Z91.040 Latex allergy status; Z88.8 Allergy status to other drugs, medicaments and biological substances
CPT/HCPCS: 99285; 96372; 36415; 87086; 84703; 85025; 85610; 85730; 80053; 81001; 72157; 72158; 73610; 73090; 73630; 73060; 72110; A9576; J1885

== ENCOUNTER → 2020-03-03 | Outpatient (CLI) | payer MEDICAID ==
--- NOTE | 2020-03-03 16:54 | RADIOLOGY REPORT (SQ) ---
EXAM DESCRIPTION: KNEE RIGHT 4 VIEWS IMAGES COMPLETED DATE/TIME: 03/03/2020 4:43 pm REASON FOR STUDY: RIGHT KNEE PAIN; UNSPECIFIED CHRONICITY M25.561 PAIN IN RIGHT KNEE COMPARISON: None. NUMBER OF VIEWS: Four views. TECHNIQUE: AP, lateral, and both oblique radiographic images acquired of the right knee. LIMITATIONS: None. FINDINGS: MINERALIZATION: Normal. BONES: No acute fracture or dislocation. No worrisome bone lesions. No significant osteophytes. JOINT: No effusion. No chondrocalcinosis. OTHER: No other significant finding. IMPRESSION: NEGATIVE STUDY OF THE RIGHT KNEE. NO EXPLANATION FOR PAIN. TECHNICAL DOCUMENTATION: JOB ID: [id number] 2010 [employer]- All Rights Reserved Reading location - IP/workstation name: [email or web address]
== END ==
LOC: OD 16:29
PROVIDERS: ATTEND Family Medicine
DX: M25.561 Pain in right knee (principal)

== ENCOUNTER 2020-03-25 17:34 | Inpatient (IN) | payer MEDICAID ==
[2020-03-25] MEDS ORDERED: CEFTRIAXONE 1 GM/D5W RTU 1 GM/50 ML RTUPB IV ONE (18:13)
--- NOTE | 2020-03-25 18:29 | RADIOLOGY REPORT (SQ) ---
EXAM DESCRIPTION: CHEST SINGLE VIEW IMAGES COMPLETED DATE/TIME: 03/25/2020 6:15 pm REASON FOR STUDY: overdose COMPARISON: 10/14/2018 EXAM PARAMETERS: NUMBER OF VIEWS: One view. TECHNIQUE: Single frontal radiographic view of the chest acquired. RADIATION DOSE: NA LIMITATIONS: None. FINDINGS: LUNGS AND PLEURA: No opacities, masses or pneumothorax. No pleural effusion. MEDIASTINUM AND HILAR STRUCTURES: No masses. Contour normal. HEART AND VASCULAR STRUCTURES: Heart normal in size. Normal vasculature. BONES: No acute findings. HARDWARE: None in the chest. OTHER: No other significant finding. IMPRESSION: NO ACUTE RADIOGRAPHIC FINDING IN THE CHEST. TECHNICAL DOCUMENTATION: JOB ID: [id number] 2010 [employer]- All Rights Reserved Reading location - IP/workstation name: [email or web address]
[2020-03-25 18:35] LABS: ABSOLUTE BASOPHILS # (AUTO) 0.1 10^3/uL (0.0-0.2); ABSOLUTE EOSINOPHILS # (AUTO) 0.6 10^3/uL (0.0-0.6); ABSOLUTE LYMPHOCYTES (AUTO) 3.6 10^3/uL (0.5-4.7); ABSOLUTE MONOCYTES (AUTO) 0.3 10^3/uL (0.1-1.4); ABSOLUTE NEUT (AUTO) 4.7 10^3/uL (1.7-8.2); BASOPHILS % (AUTO) 0.7 % (0-2); EOSINOPHILS % (AUTO) 6.7 % (0-6); HEMATOCRIT 39.9 % (36.0-47.0); HEMOGLOBIN 13.3 g/dL (12.0-15.5); LYMPHOCYTES % (AUTO) 38.5 % (13-45); MEAN CORPUSCULAR HEMOGLOBIN 27.7 pg (27.0-33.4); MEAN CORPUSCULAR HGB CONC 33.4 g/dL (32.0-36.0); MEAN CORPUSCULAR VOLUME 83 fl (80-97); MONOCYTES % (AUTO) 3.6 % (3-13); PLATELET COUNT 350 10^3/uL (150-450); RED BLOOD COUNT 4.81 10^6/uL (3.72-5.28); RED CELL DISTRIBUTION WIDTH 13.7 % (11.5-14.0); SEGMENTED NEUTROPHILS % (AUTO) 50.5 % (42-78); TOTAL CELLS COUNTED % (AUTO) 100 %; WHITE BLOOD COUNT 9.4 10^3/uL (4.0-10.5)
[2020-03-25 18:52] LABS: ALBUMIN 4.3 g/dL (3.5-5.0); ALKALINE PHOSPHATASE 77 U/L (38-126); ANION GAP 13 (5-19); ASPARTATE AMINO TRANSFERASE 21 U/L (14-36); BILIRUBIN,DIRECT 0.2 mg/dL (0.0-0.4); BILIRUBIN,TOTAL 0.3 mg/dL (0.2-1.3); BLOOD UREA NITROGEN 16 mg/dL (7-20); CALCIUM 9.9 mg/dL (8.4-10.2); CARBON DIOXIDE 25 mmol/L (22-30); CHLORIDE 100 mmol/L (98-107); GLUCOSE 168 mg/dL (75-110); POTASSIUM 3.8 mmol/L (3.6-5.0); TOTAL PROTEIN 7.6 g/dL (6.3-8.2)
[2020-03-25 18:53] LABS: ACETAMINOPHEN < 10 ug/mL (10-30); ALCOHOL < 10 mg/dL (NONE DETECTED)
[2020-03-25 19:03] LABS: INTERNATIONAL RATION (INR) 0.89; PROTHROMBIN TIME 12.3 SEC (11.4-15.4)
[2020-03-25] MEDS: NORMAL SALINE 1000 ML 1,000 ML IV PRN ×2 (19:03→21:07)
[2020-03-25 19:04] LABS: PARTIAL THROMBOPLASTIN TIME 40.4 SEC (23.5-35.8)
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
[2020-03-25 19:26] LABS: ARTERIAL BLOOD BASE EXCESS -0.1 mmol/L; ARTERIAL BLOOD H2CO3 1.43 mmol/L (1.05-1.35); ARTERIAL BLOOD HCO3 25.9 mmol/L (20-24); ARTERIAL BLOOD O2 SATURATION 96.8 % (94-98); ARTERIAL BLOOD PCO2 47.4 mmHg (35-45); ARTERIAL BLOOD PH 7.36 (7.35-7.45); ARTERIAL BLOOD PO2 94.1 mmHg (80-100); ARTERIAL BLOOD TOTAL CO2 27.3 mmol/L (21-25)
[2020-03-25 19:29] LABS: ARTERIAL BLOOD FIO2 15L
[2020-03-25] MEDS ORDERED: ONDANSETRON HCL INJ/PF 4 MG/2 ML SDV IV ONE (19:34)
[2020-03-25] MEDS ORDERED: ACETAMINOPHEN 325 MG TABLET PO PRN (20:53)
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
[2020-03-25] MEDS: FAMOTIDINE 20 MG TABLET PO SCH (22:26)
--- NOTE | 2020-03-25 22:29 | EKG REPORT ---
SEVERITY:- BORDERLINE ECG - SINUS TACHYCARDIA PROBABLE LEFT ATRIAL ABNORMALITY BORDERLINE PROLONGED QT INTERVAL : Confirmed by: Krissy Burt MD 25-Mar-2020 22:29:03
[2020-03-25] MEDS: NICOTINE 21 MG/24 HR PATCH.TD24 TD SCH (22:33)
--- NOTE | 2020-03-26 08:21 | PDOC PROGRESS REPORT ---
Subjective Date:: 03/26/20 Subjective:: 29 year old female with a history of IV heroin abuse with multiple episodes of o verdose in the past requiring intubation 3 times since 2015 is now brought in to the ED via EMS after she overdosed heroin this afternoon. Patient was found by EMS in a pool of vomitus with a respiratory rate of 4/min and hypoxic. She was given Narcan immediately in became responsive. Patient had multiple episodes of vomiting during transfer to the ED by EMS and was requiring intranasal oxygen. Currently she is awake, and oriented x3. Patient states that she injected heroin around 4 PM this afternoon and she does not remember what happened following that. EMS was called by her mother. Patient states that this is the second time she overdosed in the last 2 weeks. She has been intubated multiple times in the past the last time being a year ago March 2019. Currently she reports shortness of breath and pain all over her body. She denies any fever, chills, cough, diarrhea or urinary habits change. Patient also denies suicidal or homicidal ideation. 03/26/[id number]-nirn-old female admitted with heroin overdose. Patient was given Narcan. Comfortably in the bed communicating well. Not in respiratory distress. Along with heroin she took all her regular medications gabapentin and Flexeril. Patient is under IVC commitment. Reason For Visit: ACUTE HYPOXIC RESPIRATORY FAILURE,OPIOID OVERDOSE Physical Exam Vital Signs: Temp Pulse Resp BP Pulse Ox 97.9 F 22 H 93/57 L 95 03/26/20 05:40 03/26/20 07:00 03/26/20 07:00 03/26/20 07:00 Intake & Output 03/25/20 03/26/20 03/27/20 06:59 06:59 06:59 Intake Total 2450 Balance 2450 Weight 125 kg General appearance: PRESENT: no acute distress, cooperative, morbidly obese Head exam: PRESENT: atraumatic Eye exam: PRESENT: PERRLA Neck exam: ABSENT: carotid bruit, JVD, lymphadenopathy, thyromegaly Respiratory exam: PRESENT: clear to auscultation zach. ABSENT: rales, rhonchi, wheezes Cardiovascular exam: PRESENT: RRR. ABSENT: diastolic murmur, rubs, systolic murmur GI/Abdominal exam: PRESENT: normal bowel sounds, soft. ABSENT: distended, guarding, mass, organolmegaly, rebound, tenderness Rectal exam: PRESENT: deferred Extremities exam: PRESENT: full ROM. ABSENT: calf tenderness, clubbing, pedal edema Neurological exam: PRESENT: alert, awake, oriented to person, oriented to place, oriented to time, oriented to situation, CN II-XII grossly intact. ABSENT: motor sensory deficit Psychiatric exam: PRESENT: appropriate affect, normal mood. ABSENT: homicidal ideation, suicidal ideation Results Laboratory Results: 03/25/20 17:59 03/25/20 17:59 03/25/20 03/25/20 03/25/20 17:59 17:59 17:59 WBC 9.4 RBC 4.81 Hgb 13.3 Hct 39.9 MCV 83 MCH 27.7 MCHC 33.4 RDW 13.7 Plt Count 350 Seg Neutrophils % 50.5 Carbonic Acid HCO3/H2CO3 Ratio ABG pH ABG pCO2 ABG pO2 ABG HCO3 ABG O2 Saturation ABG Base Excess FiO2 Sodium 138.2 Potassium 3.8 Chloride 100 Carbon Dioxide 25 Anion Gap 13 BUN 16 Creatinine 0.80 Est GFR ( Amer) > 60 Glucose 168 H Lactic Acid Calcium 9.9 Total Bilirubin 0.3 AST 21 Alkaline Phosphatase 77 Total Protein 7.6 Albumin 4.3 Serum HCG, Qual NEGATIVE 03/25/20 03/25/20 17:59 18:56 WBC RBC Hgb Hct MCV MCH MCHC RDW Plt Count Seg Neutrophils % Carbonic Acid 1.43 H HCO3/H2CO3 Ratio 18:1 ABG pH 7.36 ABG pCO2 47.4 H ABG pO2 94.1 ABG HCO3 25.9 H ABG O2 Saturation 96.8 ABG Base Excess -0.1 FiO2 15L Sodium Potassium Chloride Carbon Dioxide Anion Gap BUN Creatinine Est GFR ( Amer) Glucose Lactic Acid 2.9 H Calcium Total Bilirubin AST Alkaline Phosphatase Total Protein Albumin Serum HCG, Qual 03/25/20 17:59 Troponin I < 0.012 Impressions: Chest X-Ray 03/25/20 17:58 IMPRESSION: NO ACUTE RADIOGRAPHIC FINDING IN THE CHEST. Assessment and Plan - Diagnosis (1) Acute hypoxemic respiratory failure Is this a current diagnosis for this admission?: Yes Plan: Patient was found nonresponsive with respiratory rate of 4/min and hypoxic by EMS Responded to administration of Narcan and now she is alert and oriented x3 ABG showed pH/PCO2/PO2=> 7.3 6/47/94% while on 15 L Currently on a BiPAP and saturating well on FiO2 of 60% Continue following her respiratory parameters closely 03/26/2020-patient admitted with acute hypoxic respiratory failure. Comfortably in the bed communicating well. On oxygen 2 L via nasal cannula. Pulse ox is 95%. Communicating well. Acute hypoxic respiratory failure resolving. Chest x-ray is negative for acute pathology. Patient is on Augmentin for possible aspiration pneumonitis. (2) Opiate overdose Qualifiers: Encounter type: initial encounter Injury intent: undetermined intent Qualified Code(s): T40.604A - Poisoning by unspecified narcotics, undetermined, initial encounter Is this a current diagnosis for this admission?: Yes Plan: Was brought in by EMS after she overdosed after injecting herself heroin this afternoon She became responsive after administration of Narcan by EMS Patient reports that she it was accidental and she had no intent of harming herself Currently respiratory rate above 20 Continue supportive measures Closely monitor for signs of airway compromise Continue Narcan as needed 03/26/2020-patient is under IVC commitment. Alert awake oriented. Admitted to use heroin along with her regular medications Flexeril and gabapentin. (3) Aspiration pneumonitis Is this a current diagnosis for this admission?: Yes Plan: Patient had repeated vomiting give during transfer Has diffuse crackles bilaterally on auscultation Chest x-ray showed no acute findings She was given ceftriaxone at the ED and will transition her to p.o. Augmentin Follow-up with culture results 03/26/2020-patient has a few episodes of vomiting. There is a high risk for aspiration pneumonia. Patient is on Augmentin for aspiration pneumonitis. (4) Lactic acidosis Is this a current diagnosis for this admission?: Yes Plan: Likely due to hypoxia Will serially check lactic acid level 03/26/2020-admission lactic acid is 2.9. To repeat the lactic acid levels. (5) Heroin abuse Is this a current diagnosis for this admission?: Yes Plan: Patient has been using heroin since 2016 and has a history of multiple overdose requiring intubation Continued counseling on the harms of opioid abuse Psych consult has been placed (6) Bipolar disorder Is this a current diagnosis for this admission?: No Plan: Continue home medications - Time Anticipated Discharge Disposition: Home, Self Care Anticipated Discharge Timeframe: within 72 hours
[2020-03-26 08:44] LABS: ABSOLUTE EOSINOPHILS # (AUTO) 0.3 10^3/uL (0.0-0.6); ABSOLUTE LYMPHOCYTES (AUTO) 0.6 10^3/uL (0.5-4.7); ABSOLUTE MONOCYTES (AUTO) 0.2 10^3/uL (0.1-1.4); BASOPHILS % (AUTO) 0.1 % (0-2); EOSINOPHILS % (AUTO) 3.1 % (0-6); HEMOGLOBIN 11.3 g/dL (12.0-15.5); LYMPHOCYTES % (AUTO) 5.4 % (13-45); MEAN CORPUSCULAR HEMOGLOBIN 27.6 pg (27.0-33.4); MEAN CORPUSCULAR HGB CONC 33.3 g/dL (32.0-36.0); MEAN CORPUSCULAR VOLUME 83 fl (80-97); MONOCYTES % (AUTO) 1.9 % (3-13); PLATELET COUNT 228 10^3/uL (150-450); RED BLOOD COUNT 4.11 10^6/uL (3.72-5.28); RED CELL DISTRIBUTION WIDTH 13.7 % (11.5-14.0); SEGMENTED NEUTROPHILS % (AUTO) 89.5 % (42-78); TOTAL CELLS COUNTED % (AUTO) 100 %; WHITE BLOOD COUNT 11.2 10^3/uL (4.0-10.5)
[2020-03-26 08:53] LABS: APPEARANCE,URINE CLEAR; BILIRUBIN,URINE NEGATIVE (NEGATIVE); COLOR,URINE YELLOW; GLUCOSE, URINE NEGATIVE (NEGATIVE); KETONES,URINE NEGATIVE (NEGATIVE); PROTEIN,URINE 30 mg/dL (NEGATIVE); URINE SPECIFIC GRAVITY 1.019; UROBILINOGEN,URINE NEGATIVE mg/dL (<2.0)
[2020-03-26 09:06] LABS: ALBUMIN 3.4 g/dL (3.5-5.0); ALKALINE PHOSPHATASE 70 U/L (38-126); ANION GAP 8 (5-19); ASPARTATE AMINO TRANSFERASE 20 U/L (14-36); BILIRUBIN,TOTAL 0.3 mg/dL (0.2-1.3); BLOOD UREA NITROGEN 16 mg/dL (7-20); CALCIUM 8.9 mg/dL (8.4-10.2); CARBON DIOXIDE 26 mmol/L (22-30); CHLORIDE 102 mmol/L (98-107); GLUCOSE 109 mg/dL (75-110); POTASSIUM 4.3 mmol/L (3.6-5.0); TOTAL PROTEIN 6.1 g/dL (6.3-8.2)
[2020-03-26 09:15] LABS: URINE AMPHETAMINES SCREEN NEGATIVE; URINE BARBITURATES SCREEN NEGATIVE; URINE BENZODIAZEPINES SCREEN NEGATIVE; URINE COCAINE SCREEN NEGATIVE; URINE MARIJUANA (THC) SCREEN NEGATIVE; URINE PHENCYCLIDINE SCREEN NEGATIVE
[2020-03-26 09:19] LABS: URINE METHADONE SCREEN UNCONFIRMED POSITIVE
[2020-03-26] MEDS ORDERED: ROCURONIUM BROMIDE INJ 50 MG/5 ML VIAL IV ONE (11:09)
[2020-03-26] MEDS: FAMOTIDINE 20 MG TABLET PO SCH ×2 (11:37→22:37)
[2020-03-26] MEDS: AMOXICILLIN TR/POT CLAVULANATE 875-125 MG TAB PO SCH ×2 (11:37→22:51)
[2020-03-26] MEDS: ENOXAPARIN SODIUM INJ 40 MG/0.4 ML DISP.SYRIN SUBCUT SCH (11:37)
[2020-03-26] MEDS: NICOTINE 21 MG/24 HR PATCH.TD24 TD SCH (11:38)
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
[2020-03-26] MEDS ORDERED: IPRATROPIUM/ALBUTEROL 0.5-2.5 MG/3 ML AMPUL NEB PRN (19:46)
[2020-03-26] MEDS: GUAIFENESIN 600 MG TABLET.SA PO SCH (22:37)
[2020-03-26] MEDS ORDERED: AMOXICILLIN TR/POT CLAVULANATE 875-125 MG TAB ONE (22:39)
[2020-03-26] MEDS: ONDANSETRON HCL INJ/PF 4 MG/2 ML SDV IV PRN (22:42)
[2020-03-27] MEDS ORDERED: CYCLOBENZAPRINE HCL 10 MG TABLET PO PRN (08:57)
[2020-03-27] MEDS ORDERED: BUPRENORPHINE HCL 8 MG SL SCH (10:00)
[2020-03-27] MEDS: BUPRENORPHINE HCL 2 MG SUBLINGUAL TABLET SL SCH ×2 (10:45→21:25)
[2020-03-27] MEDS: AMOXICILLIN TR/POT CLAVULANATE 875-125 MG TAB PO SCH ×2 (10:45→21:25)
[2020-03-27] MEDS: GUAIFENESIN 600 MG TABLET.SA PO SCH (10:46)
[2020-03-27] MEDS: ENOXAPARIN SODIUM INJ 40 MG/0.4 ML DISP.SYRIN SUBCUT SCH (10:46)
[2020-03-27] MEDS: FAMOTIDINE 20 MG TABLET PO SCH ×2 (10:46→21:25)
[2020-03-27] MEDS: NICOTINE 21 MG/24 HR PATCH.TD24 TD SCH (10:46)
[2020-03-27] MEDS: GABAPENTIN 300 MG CAPSULE PO SCH ×2 (13:58→21:25)
--- NOTE | 2020-03-27 14:17 | PDOC PROGRESS REPORT ---
Subjective Date:: 03/27/20 Subjective:: KAUSHAL INFANTE is a 29 year old female with a history of IV heroin abuse with multiple episodes of overdose in the past requiring intubation 3 times since 2015 is now brought in to the ED via EMS after she overdosed heroin this afternoon. Patient was found by EMS in a pool of vomitus with a respiratory rate of 4/min and hypoxic. She was given Narcan immediately in became respo nsive. Patient had multiple episodes of vomiting during transfer to the ED by EMS and was requiring intranasal oxygen. Currently she is awake, and oriented x3. Patient states that she injected heroin around 4 PM this afternoon and she does not remember what happened following that. EMS was called by her mother. Patient states that this is the second time she overdosed in the last 2 weeks. She has been intubated multiple times in the past the last time being a year ago March 2019. Currently she reports shortness of breath and pain all over her body. She denies any fever, chills, cough, diarrhea or urinary habits change. Patient also denies suicidal or homicidal ideation. 03/27/2020. Saw patient this morning, alert and oriented in no apparent distress, inquiring when she can go home, denies any fever, chills, nausea, vomiting, diarrhea, constipation or any other symptoms. Reason For Visit: ACUTE HYPOXIC RESPIRATORY FAILURE,OPIOID OVERDOSE Physical Exam Vital Signs: Temp Pulse Resp BP Pulse Ox 98.3 F 101 H 16 112/60 97 03/27/20 08:23 03/27/20 08:23 03/27/20 08:23 03/27/20 08:23 03/27/20 08:23 Intake & Output 03/26/20 03/27/20 03/28/20 06:59 06:59 06:59 Intake Total 2450 450 Balance 2450 450 Weight 125 kg 125.6 kg General appearance: PRESENT: morbidly obese Head exam: PRESENT: atraumatic, normocephalic Respiratory exam: PRESENT: clear to auscultation zach. ABSENT: rales, rhonchi, wheezes Cardiovascular exam: PRESENT: RRR. ABSENT: diastolic murmur, rubs, systolic murmur GI/Abdominal exam: PRESENT: normal bowel sounds, soft. ABSENT: distended, guarding, mass, organolmegaly, rebound, tenderness Extremities exam: PRESENT: full ROM. ABSENT: calf tenderness, clubbing, pedal edema Neurological exam: PRESENT: alert, awake, oriented to person, oriented to place, oriented to time, oriented to situation, CN II-XII grossly intact. ABSENT: motor sensory deficit Results Laboratory Results: 03/26/20 08:10 03/26/20 08:10 03/25/20 17:59 Troponin I < 0.012 Impressions: Chest X-Ray 03/25/20 17:58 IMPRESSION: NO ACUTE RADIOGRAPHIC FINDING IN THE CHEST. Assessment and Plan - Diagnosis (1) Acute hypoxemic respiratory failure Is this a current diagnosis for this admission?: Yes Plan: Resolved. SPO2 WNL on RA. Patient was found nonresponsive with respiratory rate of 4/min and hypoxic by EMS Responded to administration of Narcan and now she is alert and oriented x3 ABG showed pH/PCO2/PO2=> 7.3 6/47/94% while on 15 L Currently on a BiPAP and saturating well on FiO2 of 60% Continue following her respiratory parameters closely (2) Aspiration pneumonitis Is this a current diagnosis for this admission?: Yes Plan: Patient had repeated vomiting give during transfer Has diffuse crackles bilaterally on auscultation Chest x-ray showed no acute findings She was given ceftriaxone at the ED and will transition her to p.o. Augmentin Follow-up with culture results (3) Bipolar disorder Is this a current diagnosis for this admission?: No Plan: Continue home medications (4) Heroin abuse Is this a current diagnosis for this admission?: Yes Plan: Patient has been using heroin since 2016 and has a history of multiple overdose requiring intubation Continued counseling on the harms of opioid abuse Psych consult has been placed (5) Lactic acidosis Is this a current diagnosis for this admission?: Yes Plan: Resolved. Likely due to hypoxia Will serially check lactic acid level (6) Opiate overdose Qualifiers: Encounter type: initial encounter Injury intent: undetermined intent Qualified Code(s): T40.604A - Poisoning by unspecified narcotics, undetermined, initial encounter Is this a current diagnosis for this admission?: Yes Plan: Was brought in by EMS after she overdosed after injecting herself heroin this afternoon She became responsive after administration of Narcan by EMS Patient reports that she it was accidental and she had no intent of harming herself Currently respiratory rate above 20 Continue supportive measures Closely monitor for signs of airway compromise Continue Narcan as needed (7) Tobacco dependence Is this a current diagnosis for this admission?: Yes Plan: Tobacco cessation counseling provided Nicotine patch while inpatient - Time Time Spent with patient: 25-34 minutes Anticipated Discharge Disposition: Psych Hospital/Unit Anticipated Discharge Timeframe: when bed available
--- NOTE | 2020-03-27 17:50 | PDOC CONSULTATION ---
Consultation-Blank Consultation: Behavioral Health Consult: Re Evaluation (initial was when patient was medical admit but still in the emergency department yesterday) Presenting Problem: Patient is a FULL Involuntary Commitment for overdose twice in 1-2 weeks From [id number] obtained collateral from Community Director Of Infection Control Johnie Hidalgo when he returned call from yesterday. He reported patient "has a long history of drug use, was in group home and why she has been clean for several months, just got out of group home, and has overdosed twice in 1.5 weeks." He stated he was on scene both times where patient had to be revived and Narcan was effective. He reported after the first overdose they connected her with treatment, utilized Buprenorphine in the field, linked her to [facility], patient chose to use Methadone, and currently is on 30MG a day. He reported "patient's mother is not supposed to be in the house with patient, she tries to blame her drug use on her mother, and she is not making good decisions or choices." He stated patient this time also took at least 2 Gabapentin and 2 Flexeril. He confirmed patient has a meeting with her Team Psychologist Sunday. He stated she missed Methadone at [facility] yesterday and today, Sunday will make the third visit, and he would notify them patient is in the hospital as IVC. He identified he has been involved and working with patient since 2016. He reported patient has has 8 overdoses in the past 3 years. He was informed patient is a FULL Involuntary Commitment, admitted for medical: aspiration pneumonia, and once medically cleared plan to send referral to [facility]. At 1751 called Hospitalist to inquire about medical clearance. Will be medically cleared tomorrow as she will finish her antibiotics for leukocytosis felt to be related to aspiration pneumonia. It is protocol. From [id number] conducted check in with patient. When told plan of care for abel cement at [facility] tomorrow after medically cleared she became tearful, cried, and coughed a lot spitting up yellowish white phlegm. She stated "I have too much to lose, my kids, my fiance, we just bought a house, "I'd rather lose my mother than all of that." She reported she let her mother fill the syringe and administer it. She stated mother told her the person she got it from said it was good stuff. Informed patient she did not test positive for opiates so it could have been Fentanyl which could have killed her instantly. She stated "I'm not doing this anymore, I want help." She reported she still wanted to follow up with [facility]. She admitted to 8 overdoses in the last 3 years and commented "5-6 I had to be intubated." She denied any being to take her life but from using and getting high. She asked that her lola Pradhan be informed of plan of care. She was also informed this clinician coordinated with [facility] who was going to try to let [facility] and Team Psychologist know she is in the hospital as Involuntary Commitment. At 1850 called lola Pradhan and informed him of plan of care. Clinical Presentation: Opiate Overdose, thought it was IV heroin, not positive for opiates, possible Fentanyl Second overdose in 1.5 weeks requiring patient to be revived in the field and Narcan being effective History of drug abuse Impression/Plan: Recommendation to maintain FULL Involuntary Commitment. Patient admitted to numerous overdoses over the past 3 years, many that required intubation, and she admitted to having two overdoses in the past 1.5 weeks. Plan to make Involuntary Commitment referral to [facility] for substance abuse treatment tomorrow after medical clearance. Both of the recent overdoses required revival in the field with Narcan use being effective. Consulted with Dr. Wright regarding the management and care of patient. Hospitalist aware of recommendations.
[2020-03-27] MEDS: ONDANSETRON HCL INJ/PF 4 MG/2 ML SDV IV PRN (18:52)
[2020-03-28 05:16] LABS: ABSOLUTE EOSINOPHILS # (AUTO) 1.3 10^3/uL (0.0-0.6); ABSOLUTE LYMPHOCYTES (AUTO) 1.4 10^3/uL (0.5-4.7); ABSOLUTE MONOCYTES (AUTO) 0.2 10^3/uL (0.1-1.4); ABSOLUTE NEUT (AUTO) 4.2 10^3/uL (1.7-8.2); BASOPHILS % (AUTO) 0.5 % (0-2); HEMATOCRIT 34.2 % (36.0-47.0); HEMOGLOBIN 11.5 g/dL (12.0-15.5); LYMPHOCYTES % (AUTO) 19.8 % (13-45); MEAN CORPUSCULAR HEMOGLOBIN 27.9 pg (27.0-33.4); MEAN CORPUSCULAR HGB CONC 33.7 g/dL (32.0-36.0); MEAN CORPUSCULAR VOLUME 83 fl (80-97); MONOCYTES % (AUTO) 3.3 % (3-13); PLATELET COUNT 244 10^3/uL (150-450); RED BLOOD COUNT 4.14 10^6/uL (3.72-5.28); SEGMENTED NEUTROPHILS % (AUTO) 58.2 % (42-78); TOTAL CELLS COUNTED % (AUTO) 100 %; WHITE BLOOD COUNT 7.2 10^3/uL (4.0-10.5)
[2020-03-28 05:36] LABS: EOSINOPHILS % (AUTO) 18.2 % (0-6)
[2020-03-28] MEDS: GABAPENTIN 300 MG CAPSULE PO SCH ×3 (06:32→22:08)
[2020-03-28] MEDS ORDERED: ONDANSETRON 4 MG TAB.RAPDIS PO PRN (07:48)
--- NOTE | 2020-03-28 10:42 | PDOC CONSULTATION ---
Consultation-Blank Consultation: Behavioral Health Consult: Re Evaluation (initial was when patient was medical admit but still in the emergency department yesterday) Presenting Problem: Patient is a FULL Involuntary Commitment for overdose twice in 1-2 weeks At 1035 called Hospitalist to inquire about medical clearance. He stated the aspiration pneumonia has worsened so she will be treated for that. She is requiring Oxygen at this time and by mouth antibiotics are being switched to Intravenous. He reported he spoke to patient about the need to treat the pneumonia before going to inpatient psychiatric hospitalization and she understood. Hospitalist stated he would treat the pneumonia and call the behavioral health team back once medically cleared. At 1037 tried calling Johnie Hidalgo with [facility] to keep him aware of plan of care for care coordination/continuity of care purposes. No answer. Got voice mail but mail box full so unable to leave message. Will try to call back later. Johnie Hidalgo returned call from [phone]. He was made aware of plan of care and since not medically cleared once she is [facility] likely will not be needed. Informed him patient said she had too much to lose (kids, fiance, new home) and wanted to continue with [facility] ([facility]) and do better. Also reminded him she was worried about missing 3 consecutive appointments at [facility] and her [place] [facility]. He stated [facility] will not be appropriate once patient is medically cleared, he will follow up with her once she is discharged, and there are just some things she needs to do to move forward and stay sober. From [id number] obtained collateral from Rehan Pradhan ([phone]). He reported patient's mother is living in the home, she was helping with patient's transition from Alf and with the children, there is no court order that mother cannot be in the home but rather that was his decision in the past, and he will have patient's mother out of the house. He identified patient told him mother did this but mother stated she found patient and put the children into a separate room. He noted he had been at work and when he arrived home patient was already in the ambulance, there were lots of law enforcement and first responders in the front yard, so he went inside to check on the children and did find them in a separate room away from everything going on. He acknowledged "patient and her mother blame each other for things and they both lie constantly, she will lie to you guys too." He identified he has his mother and a sister who help with taking care of the kids. he noted he actually has 5 other sisters that could help but typically it's the one and his mother. He initiated a plan for patient to stay with his mother or sister during the day when he is at work, he could pick her up after work, that way patient and patient's mother would not be home alone together. He stated patient's mother will be out of the house but that will happen by the first when patient's mother gets paid as he will not just throw her out. He noted he has heard patient say before she will not do this again. He commented "I have gone to see her in Alf or at treatment centers all over from [facility], to [place]." He stated "I have 4 other children that I have raised who have done things like college or , I don't need her but wanted the children to have their mother in their lives, however she needs to make a choice to stop the drugs because I am not going to let the children get hurt/see their mother high or worse overdosed." He was made aware of plan of care: here medically for the aspiration pneumonia, getting rid of the Involuntary Commitment, and [facility] not being an appropriate treatment option by the time patient is medically cleared and discharged. He stated if he is not available for transportation when she is discharged (would be due to being at work) he has his sister on standby. Coordinated with the Bag Sorter Retail Account Specialist Fatou at 1455. From [id number] did check in with patient. She denied current thoughts of wanting to hurt/harm/kill self. 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 She stated "I like to get high" which is what makes this all so difficult. Psychoeducated patient on the need to change how she lives which includes where she hangs out, who she hangs out with, activities that may remind her of using, and much more. She stated she wants to be a good mom for her children. She mentioned how her fiance doesn't understand she needs to put her mental health first before the children in order to be the best mother she can be. She stated "she needs to address her depression, was on Cymbalta but hasn't had that in awhile, my anxiety, and my drug use." She mentioned having been in alf recovery at places that allow mothers and children and she may consider that option again. She stated she was excited to be home for the Holidays as the is the first time she has been in the past 3 years. Psychoeducated that Holidays can also be stressful, stress often makes people go to what is familiar, sometimes what is familiar are negative coping skills such as drug use. She noted using her professional supports ([facility], [facility], possible extermination supervisor placement, previous NA meetings and how they were helpful). At 1741 paged the munitions handler Department of Reformatory Attendant (DSS) worker. Mayra Vogel returned call at 1756. Made CPS report. Clinical Presentation: Opiate Overdose, thought it was IV heroin, not positive for opiates, possible Fentanyl Second overdose in 1.5 weeks requiring patient to be revived in the field and Narcan being effective History of drug abuse Medication recommendations made by the psychiatric medication provider Dr. Jose Raul ALBA., includes: Add Effexor 37.5MG twice a day for depression/increase focus/increase attention/to curb drug cravings Impression/Plan: Recommendation to RESCIND Involuntary Commitment as it was primary substance abuse. Patient denied suicidal ideation, said she wanted to stay clean for her family, and has professional supports in place. Coordinated with the Bag Sorter Retail Account Specialist. Spoke to rehan and discussed plan of care: patient being treated medically, no longer an Involuntary Commitment, how he c ould implement patient staying with his family when he works to avoid her alone with her mother until mother can be moved out at least by the first of the month. Made a CPS report. Consulted with Dr. Wright regarding the management and care of patient. Hospitalist aware of recommendations. Patient is not medically cleared yet as she is being treated for worsened aspiration pneumonia. Once she is medically cleared [facility] will not be an appropriate level of care (they are a 3-5 day detoxification program and she will not require that, also she is already connected to [facility] and [facility] ([facility]) but [facility] is involved with patient and will follow up with her once she is discharged. She also has stated she wants to continue with treatment at [facility].
[2020-03-28] MEDS: NICOTINE 21 MG/24 HR PATCH.TD24 TD SCH (10:51)
[2020-03-28] MEDS: BUPRENORPHINE HCL 2 MG SUBLINGUAL TABLET SL SCH ×2 (10:51→22:08)
[2020-03-28] MEDS: FAMOTIDINE 20 MG TABLET PO SCH ×2 (10:51→22:08)
[2020-03-28] MEDS: GUAIFENESIN 600 MG TABLET.SA PO SCH (10:51)
[2020-03-28] MEDS: ENOXAPARIN SODIUM INJ 40 MG/0.4 ML DISP.SYRIN SUBCUT SCH (10:52)
[2020-03-28] MEDS: AMOXICILLIN TR/POT CLAVULANATE 875-125 MG TAB PO SCH (13:06)
[2020-03-28] MEDS: CEFTRIAXONE 1 GM/D5W RTU 1 GM/50 ML RTUPB IV SCH (13:32)
[2020-03-28] MEDS: FLUTICASONE/VILANTEROL 200-25 MCG/DOSE IH SCH (13:33)
--- NOTE | 2020-03-28 14:34 | PDOC PROGRESS REPORT ---
Subjective Date:: 03/28/20 Subjective:: KAUSHAL INFANTE is a 29 year old female with a history of IV heroin abuse with multiple episodes of overdose in the past requiring intubation 3 times since 2015 is now brought in to the ED via EMS after she overdosed heroin this afternoon. Patient was found by EMS in a pool of vomitus with a respiratory rate of 4/min and hypoxic. She was given Narcan immediately in became respo nsive. Patient had multiple episodes of vomiting during transfer to the ED by EMS and was requiring intranasal oxygen. Currently she is awake, and oriented x3. Patient states that she injected heroin around 4 PM this afternoon and she does not remember what happened following that. EMS was called by her mother. Patient states that this is the second time she overdosed in the last 2 weeks. She has been intubated multiple times in the past the last time being a year ago March 2019. Currently she reports shortness of breath and pain all over her body. She denies any fever, chills, cough, diarrhea or urinary habits change. Patient also denies suicidal or homicidal ideation. 03/27/2020. Saw patient this morning, alert and oriented in no apparent distress, inquiring when she can go home, denies any fever, chills, nausea, vomiting, diarrhea, constipation or any other symptoms. 03/28/2020. No acute events overnight. Patient complaining of getting easily winded and also complaining of cough, on physical examination patient has poor air entry bilaterally and mild wheezing had mild leukocytosis yesterday, aspiration pneumonia is a possibility, patient also has history of treated asthma. Patient will be transition to inpatient psych once medically clear. Denies any chest pain, nausea, vomiting, diarrhea, constipation or any urinary symptoms. Alert and oriented and cooperative with physical examination. Does not appear to be withdrawing. Reason For Visit: ACUTE HYPOXIC RESPIRATORY FAILURE,OPIOID OVERDOSE Physical Exam Vital Signs: Temp Pulse Resp BP Pulse Ox 97.8 F 99 18 131/69 H 96 03/28/20 11:00 03/28/20 14:00 03/28/20 11:00 03/28/20 11:00 03/28/20 11:00 Intake & Output 03/27/20 03/28/20 03/29/20 06:59 06:59 06:59 Intake Total 450 780 Balance 450 780 Weight 125.6 kg 125.6 kg General appearance: PRESENT: no acute distress, morbidly obese, well-developed, well-nourished Head exam: PRESENT: atraumatic, normocephalic Respiratory exam: PRESENT: prolonged expiratory phas, wheezes. ABSENT: rales, rhonchi Cardiovascular exam: PRESENT: RRR. ABSENT: diastolic murmur, rubs, systolic murmur GI/Abdominal exam: PRESENT: normal bowel sounds, soft. ABSENT: distended, guarding, mass, organolmegaly, rebound, tenderness Neurological exam: PRESENT: alert, awake, oriented to person, oriented to place, oriented to time, oriented to situation, CN II-XII grossly intact. ABSENT: mo tor sensory deficit Results Laboratory Results: 03/28/20 04:08 03/26/20 08:10 03/28/20 04:08 WBC 7.2 RBC 4.14 Hgb 11.5 L Hct 34.2 L MCV 83 MCH 27.9 MCHC 33.7 RDW 14.0 Plt Count 244 Seg Neutrophils % 58.2 03/25/20 17:59 Troponin I < 0.012 Impressions: Chest X-Ray 03/25/20 17:58 IMPRESSION: NO ACUTE RADIOGRAPHIC FINDING IN THE CHEST. Assessment and Plan - Diagnosis (1) Acute hypoxemic respiratory failure Is this a current diagnosis for this admission?: Yes Plan: SPO2 WNL on RA. Getting easily winded upon exertion. Patient was found nonresponsive with respiratory rate of 4/min and hypoxic by EMS Responded to administration of Narcan and now she is alert and oriented x3 ABG showed pH/PCO2/PO2=> 7.3 6/47/94% while on 15 L Continue duo nebs, supplemental oxygen, LAMA, LABA, empiric IV antibiotics, flutter valve, incentive spirometry, pulmonary toileting. (2) Aspiration pneumonitis Is this a current diagnosis for this admission?: Yes Plan: Patient had repeated vomiting during transfer Had diffuse crackles bilaterally on auscultation on admission. Chest x-ray showed no acute findings She was given ceftriaxone at the ED and will transition her to p.o. Augmentin Received 2 days of p.o. Augmentin. Given worsening symptoms, will switch back to IV ceftriaxone. Plan as per #1. (3) Bipolar disorder Is this a current diagnosis for this admission?: No Plan: Continue home medications (4) Heroin abuse Is this a current diagnosis for this admission?: Yes Plan: Alert and oriented, cooperative, answering question appropriately. No sign of withdrawal. Patient has been using heroin since 2016 and has a history of multiple overdose requiring intubation Continued counseling on the harms of opioid abuse Psych consult has been placed (5) Lactic acidosis Is this a current diagnosis for this admission?: Yes Plan: Resolved. Likely due to hypoxia Will serially check lactic acid level (6) Opiate overdose Qualifiers: Encounter type: initial encounter Injury intent: undetermined intent Qualified Code(s): T40.604A - Poisoning by unspecified narcotics, undetermined, initial encounter Is this a current diagnosis for this admission?: Yes Plan: Was brought in by EMS after she overdosed after injecting herself heroin this afternoon She became responsive after administration of Narcan by EMS Patient reports that she it was accidental and she had no intent of harming herself Currently respiratory rate above 20 Continue supportive measures Closely monitor for signs of airway compromise Continue Narcan as needed (7) Tobacco dependence Is this a current diagnosis for this admission?: Yes Plan: Tobacco cessation counseling provided Nicotine patch while inpatient (8) Morbid obesity with BMI of 45.0-49.9, adult Is this a current diagnosis for this admission?: Yes Plan: BMI 47.6. TSH WNL as of 04/20/2018. Diet and lifestyle modification recommended. - Time Time Spent with patient: 25-34 minutes Anticipated Discharge Disposition: Psych Hospital/Unit Anticipated Discharge Timeframe: within 48 hours
[2020-03-28] MEDS: IPRATROPIUM/ALBUTEROL 0.5-2.5 MG/3 ML AMPUL NEB SCH (17:31)
[2020-03-28] MEDS: METHYLPREDNISOLONE INJ 40 MG/1 ML SDV IV SCH (22:08)
[2020-03-29] MEDS: IPRATROPIUM/ALBUTEROL 0.5-2.5 MG/3 ML AMPUL NEB SCH ×2 (02:11→08:08)
[2020-03-29] MEDS: METHYLPREDNISOLONE INJ 40 MG/1 ML SDV IV SCH (06:18)
[2020-03-29] MEDS: GABAPENTIN 300 MG CAPSULE PO SCH (06:18)
[2020-03-29 06:48] LABS: ABSOLUTE EOSINOPHILS # (AUTO) 0.1 10^3/uL (0.0-0.6); ABSOLUTE LYMPHOCYTES (AUTO) 0.8 10^3/uL (0.5-4.7); ABSOLUTE MONOCYTES (AUTO) 0.1 10^3/uL (0.1-1.4); ABSOLUTE NEUT (AUTO) 4.4 10^3/uL (1.7-8.2); BASOPHILS % (AUTO) 0.3 % (0-2); EOSINOPHILS % (AUTO) 1.4 % (0-6); HEMATOCRIT 35.4 % (36.0-47.0); HEMOGLOBIN 11.9 g/dL (12.0-15.5); LYMPHOCYTES % (AUTO) 14.6 % (13-45); MEAN CORPUSCULAR HEMOGLOBIN 27.5 pg (27.0-33.4); MEAN CORPUSCULAR HGB CONC 33.5 g/dL (32.0-36.0); MEAN CORPUSCULAR VOLUME 82 fl (80-97); PLATELET COUNT 318 10^3/uL (150-450); RED BLOOD COUNT 4.31 10^6/uL (3.72-5.28); RED CELL DISTRIBUTION WIDTH 13.5 % (11.5-14.0); SEGMENTED NEUTROPHILS % (AUTO) 82.7 % (42-78); TOTAL CELLS COUNTED % (AUTO) 100 %; WHITE BLOOD COUNT 5.3 10^3/uL (4.0-10.5)
[2020-03-29 07:32] LABS: ANION GAP 12 (5-19); BLOOD UREA NITROGEN 10 mg/dL (7-20); CALCIUM 9.9 mg/dL (8.4-10.2); CARBON DIOXIDE 23 mmol/L (22-30); CHLORIDE 102 mmol/L (98-107); GLUCOSE 175 mg/dL (75-110)
[2020-03-29] MEDS: NICOTINE 21 MG/24 HR PATCH.TD24 TD SCH (09:45)
[2020-03-29] MEDS: BUPRENORPHINE HCL 2 MG SUBLINGUAL TABLET SL SCH (09:47)
[2020-03-29] MEDS: FLUTICASONE/VILANTEROL 200-25 MCG/DOSE IH SCH (09:47)
[2020-03-29] MEDS: FAMOTIDINE 20 MG TABLET PO SCH (09:47)
[2020-03-29] MEDS: GUAIFENESIN 600 MG TABLET.SA PO SCH (09:47)
[2020-03-29] MEDS: ENOXAPARIN SODIUM INJ 40 MG/0.4 ML DISP.SYRIN SUBCUT SCH (09:52)
[2020-03-29 11:28] VITALS: BP 135/83
[2020-03-29] MEDS: CEFTRIAXONE 1 GM/D5W RTU 1 GM/50 ML RTUPB IV SCH (12:27)
--- NOTE | 2020-03-29 12:58 | CDI QUERY ---
CDI Query CDI Review: Documentation in the Medical Record indicates this patient has: Height: 5 ft 4 in Weight: 125.7 kg ( 276.54 lbs) Calculated BMI: 47.5 kg /m 2 The following is also documented in the Medical Record: General appearance: PRESENT: no acute distress, morbidly obese, well-developed, well-nourished Based on your medical judgement, can you further clarify in the Progress Notes the diagnosis associated with these findings: Morbid Obesity / 47.5 kg /m 2 Overweight / 47.5 kg /m 2 Obesity / 47.5 kg /m 2 Other condition (please specify) None of the above / Not applicable Please note: Obesity is defined as: Class 1: BMI of 30 to < 35 Class 2: BMI of 35 to < 40 Class 3: BMI of > 40 (this is also defined as Morbid Obesity) Overweight: BMI 25 to < 30 Normal weight: BMI 18.5 to < 25 The condition of Morbid Obesity is a significant contributing factor to the health and recovery of a patient. Thank you for your consideration. LISA Snider RN Clinical [employer] Physician Advisor [email or web address]
--- NOTE | 2020-03-29 13:13 | PDOC DISCHARGE SUMMARY ---
Impression - Admit/DC Date/PCP Admission Date/Primary Care Provider: 03/27/20 13:39 ANDREI ROMERO DO Discharge Date: 03/29/20 - Discharge Diagnosis (1) Acute hypoxemic respiratory failure Is this a current diagnosis for this admission?: Yes (2) Aspiration pneumonitis Is this a current diagnosis for this admission?: Yes (3) Bipolar disorder Is this a current diagnosis for this admission?: No (4) Heroin abuse Is this a current diagnosis for this admission?: Yes (5) Lactic acidosis Is this a current diagnosis for this admission?: Yes (6) Opiate overdose Is this a current diagnosis for this admission?: Yes (7) Tobacco dependence Is this a current diagnosis for this admission?: Yes (8) Morbid obesity with BMI of 45.0-49.9, adult Is this a current diagnosis for this admission?: Yes - Additional Information Resuscitation Status: Full Code Discharge Diet: As Tolerated Discharge Activity: Activity As Tolerated Referrals: ANDREI ROMERO DO [Primary Care Provider] - 03/31/20 10:45 am Prescriptions: Amoxicillin/Potassium Clav [Augmentin 875-125 Tablet] 1 tab PO Q12 4 Days #80 tablet Prednisone [Deltasone 20 mg Tablet] 40 mg PO DAILY 3 Days #6 tablet Venlafaxine HCl ER [Effexor Xr 37.5 mg Cap.sr] 37.5 mg PO DAILY 30 Days #30 cap.sr.24h Albuterol Sulfate [Ventolin Hfa 8 gm Mdi] 2 puff IH Q4HP PRN 30 Days #1 inhaler PRN Reason: Home Medications: Buprenorphine HCl 8 mg SL BID 03/26/20 Cyclobenzaprine HCl [Flexeril 10 mg Tablet] 10 mg PO TIDP PRN 03/26/20 Gabapentin [Neurontin 300 mg Capsule] 300 mg PO TID 03/26/20 Ibuprofen [Motrin 800 mg Tablet] 800 mg PO Q8HP PRN 03/26/20 Albuterol Sulfate [Ventolin Hfa 8 gm Mdi] 2 puff IH Q4HP PRN 30 Days #1 inhaler 03/29/20 Amoxicillin/Potassium Clav [Augmentin 875-125 Tablet] 1 tab PO Q12 4 Days #80 tablet 03/29/20 Prednisone [Deltasone 20 mg Tablet] 40 mg PO DAILY 3 Days #6 tablet 11/23/20 Venlafaxine HCl ER [Effexor Xr 37.5 mg Cap.sr] 37.5 mg PO DAILY 30 Days #30 cap.sr.24h 03/29/20 History of Present Illiness History of Present Illness: As per admitting physician's note KAUSHAL INFANTE is a 29 year old female with a history of IV heroin abuse with multiple episodes of overdose in the past requiring intubation 3 times since 2015 is now brought in to the ED via EMS after she overdosed heroin this afternoon. Patient was found by EMS in a pool of vomitus with a respiratory rate of 4/min and hypoxic. She was given Narcan immediately in became responsive. Patient had multiple episodes of vomiting during transfer to the ED by EMS and was requiring intranasal oxygen. Currently she is awake, and oriented x3. Patient states that she injected heroin around 4 PM this afternoon and she does not remember what happened following that. EMS was called by her mother. Patient states that this is the second time she overdosed in the last 2 weeks. She has been intubated multiple times in the past the last time being a year ago March 2019. Currently she reports shortness of breath and pain all over her body. She denies any fever, chills, cough, diarrhea or urinary habits change. Patient also denies suicidal or homicidal ideation. Hospital Course Hospital Course: (1) Acute hypoxemic respiratory failure Resolved. SPO2 WNL on RA. Patient was found nonresponsive with respiratory rate of 4/min and hypoxic by EMS Responded to administration of Narcan and now she is alert and oriented x3 ABG showed pH/PCO2/PO2=> 7.3 6/47/94% while on 15 L Started on duo nebs, supplemental oxygen, LAMA, LABA, empiric IV antibiotics, flutter valve, incentive spirometry, pulmonary toileting. (2) Aspiration pneumonitis Patient had repeated vomiting during transfer Had diffuse crackles bilaterally on auscultation on admission. Chest x-ray showed no acute findings Received 2 days of p.o. Augmentin. Switch to IV ceftriaxone. Moderate improvement. Discharged on Augmentin. Afebrile, WBC WNL at the time of discharge. (3) Bipolar disorder Continue home medications (4) Heroin abuse Alert and oriented, cooperative, answering question appropriately. No sign of withdrawal. Patient has been using heroin since 2015 and has a history of multiple overdose requiring intubation Continued counseling on the harms of opioid abuse Psych consult has been placed, please refer to note. (5) Lactic acidosis Resolved. Likely due to hypoxia Will serially check lactic acid level (6) Opiate overdose Was brought in by EMS after she overdosed after injecting herself heroin this afternoon She became responsive after administration of Narcan by EMS Patient reported that she it was accidental and she had no intent of harming herself Closely monitor. No sign of withdrawal. Psychiatry consulted, recommendations noted, please refer to note. (7) Tobacco dependence Tobacco cessation counseling provided Nicotine patch while inpatient (8) Morbid obesity with BMI of 45.0-49.9, adult BMI 47.6. TSH WNL as of 04/20/2018. Diet and lifestyle modification recommended. Physical Exam Vital Signs: Temp Pulse Resp BP Pulse Ox 97.9 F 80 18 135/83 H 98 03/29/20 11:17 03/29/20 11:17 03/29/20 11:17 03/29/20 11:17 03/29/20 11:17 Intake & Output 03/28/20 03/29/20 03/30/20 06:59 06:59 06:59 Intake Total 780 530 Balance 780 530 Weight 125.6 kg 125.7 kg General appearance: PRESENT: no acute distress, morbidly obese, well-developed, well-nourished Head exam: PRESENT: atraumatic, normocephalic Neck exam: ABSENT: carotid bruit, JVD, lymphadenopathy, thyromegaly Respiratory exam: PRESENT: clear to auscultation zach. ABSENT: rales, rhonchi, wheezes Cardiovascular exam: PRESENT: RRR. ABSENT: diastolic murmur, rubs, systolic murmur Pulses: PRESENT: normal dorsalis pedis pul GI/Abdominal exam: PRESENT: normal bowel sounds, soft. ABSENT: distended, guarding, mass, organolmegaly, rebound, tenderness Extremities exam: PRESENT: full ROM. ABSENT: calf tenderness, clubbing, pedal edema Neurological exam: PRESENT: alert, awake, oriented to person, oriented to place, oriented to time, oriented to situation, CN II-XII grossly intact. ABSENT: motor sensory deficit Skin exam: PRESENT: dry, intact, warm. ABSENT: cyanosis, rash Results Laboratory Results: WBC 5.3 10^3/uL (4.0-10.5) 03/29/20 06:04 RBC 4.31 10^6/uL (3.72-5.28) 03/29/20 06:04 Hgb 11.9 g/dL (12.0-15.5) L 03/29/20 06:04 Hct 35.4 % (36.0-47.0) L 03/29/20 06:04 MCV 82 fl (80-97) 03/29/20 06:04 MCH 27.5 pg (27.0-33.4) 03/29/20 06:04 MCHC 33.5 g/dL (32.0-36.0) 03/29/20 06:04 RDW 13.5 % (11.5-14.0) 03/29/20 06:04 Plt Count 318 10^3/uL (150-450) 03/29/20 06:04 Lymph % (Auto) 14.6 % (13-45) 03/29/20 06:04 [place] % (Auto) 1.0 % (3-13) L 03/29/20 06:04 Eos % (Auto) 1.4 % (0-6) 03/29/20 06:04 Baso % (Auto) 0.3 % (0-2) 03/29/20 06:04 Absolute Neuts (auto) 4.4 10^3/uL (1.7-8.2) 03/29/20 06:04 Absolute Lymphs (auto) 0.8 10^3/uL (0.5-4.7) 03/29/20 06:04 Absolute Monos (auto) 0.1 10^3/uL (0.1-1.4) 03/29/20 06:04 Absolute Eos (auto) 0.1 10^3/uL (0.0-0.6) 03/29/20 06:04 Absolute Basos (auto) 0.0 10^3/uL (0.0-0.2) 03/29/20 06:04 Seg Neutrophils % 82.7 % (42-78) H 03/29/20 06:04 PT 12.3 SEC (11.4-15.4) 03/25/20 17:59 INR 0.89 03/25/20 17:59 APTT 40.4 SEC (23.5-35.8) H 03/25/20 17:59 Carbonic Acid 1.43 mmol/L (1.05-1.35) H 03/25/20 18:56 HCO3/H2CO3 Ratio 18:1 03/25/20 18:56 ABG pH 7.36 (7.35-7.45) 03/25/20 18:56 ABG pCO2 47.4 mmHg (35-45) H 03/25/20 18:56 ABG pO2 94.1 mmHg (80-100) 03/25/20 18:56 ABG HCO3 25.9 mmol/L (20-24) H 03/25/20 18:56 ABG Total CO2 27.3 mmol/L (21-25) H 03/25/20 18:56 ABG O2 Saturation 96.8 % (94-98) 03/25/20 18:56 ABG Base Excess -0.1 mmol/L 03/25/20 18:56 FiO2 15L 03/25/20 18:56 Sodium 137.4 mmol/L (137-145) 03/29/20 06:04 Potassium 5.0 mmol/L (3.6-5.0) 03/29/20 06:04 Chloride 102 mmol/L (98-107) 03/29/20 06:04 Carbon Dioxide 23 mmol/L (22-30) 03/29/20 06:04 Anion Gap 12 (5-19) 03/29/20 06:04 BUN 10 mg/dL (7-20) 03/29/20 06:04 Creatinine 0.45 mg/dL (0.52-1.25) L 03/29/20 06:04 Est GFR ( Amer) > 60 (>60) 03/29/20 06:04 Est GFR (MDRD) Non-Af > 60 (>60) 03/29/20 06:04 Glucose 175 mg/dL (75-110) H 03/29/20 06:04 Lactic Acid 1.7 mmol/L (0.7-2.1) 03/26/20 08:25 Calcium 9.9 mg/dL (8.4-10.2) 03/29/20 06:04 Magnesium 1.9 mg/dL (1.6-2.3) 03/26/20 08:10 Total Bilirubin 0.3 mg/dL (0.2-1.3) 03/26/20 08:10 Direct Bilirubin 0.0 mg/dL (0.0-0.4) 03/26/20 08:10 Neonat Total Bilirubin Not Reportable 03/26/20 08:10 Neonat Direct Bilirubin Not Reportable 03/26/20 08:10 Neonat Indirect Bili Not Reportable 03/26/20 08:10 AST 20 U/L (14-36) 03/26/20 08:10 ALT 14 U/L (<35) 03/26/20 08:10 Alkaline Phosphatase 70 U/L (38-126) 03/26/20 08:10 Troponin I < 0.012 ng/mL 03/25/20 17:59 Total Protein 6.1 g/dL (6.3-8.2) L 03/26/20 08:10 Albumin 3.4 g/dL (3.5-5.0) L 03/26/20 08:10 Serum HCG, Qual NEGATIVE (NEGATIVE) 03/25/20 17:59 Urine Color YELLOW 03/26/20 08:30 Urine Appearance CLEAR 03/26/20 08:30 Urine pH 5.0 (5.0-9.0) 03/26/20 08:30 Ur Specific [place] 1.019 03/26/20 08:30 Urine Protein 30 mg/dL (NEGATIVE) H 03/26/20 08:30 Urine Glucose (UA) NEGATIVE mg/dL (NEGATIVE) 03/26/20 08:30 Urine Ketones NEGATIVE mg/dL (NEGATIVE) 03/26/20 08:30 Urine Blood NEGATIVE (NEGATIVE) 03/26/20 08:30 Urine Nitrite (Reflex) NEGATIVE (NEGATIVE) 03/26/20 08:30 Urine Bilirubin NEGATIVE (NEGATIVE) 03/26/20 08:30 Urine Urobilinogen NEGATIVE mg/dL (<2.0) 03/26/20 08:30 Leukocyte Esterase Rfl NEGATIVE (NEGATIVE) 03/26/20 08:30 Urine RBC (Auto) 0 /HPF 03/26/20 08:30 U Hyaline Cast (Auto) 1 /LPF 03/26/20 08:30 Urine WBC (Reflex) 2 /HPF 03/26/20 08:30 Squamous Epi Cells Auto 1 /HPF 03/26/20 08:30 Urine Mucus (Auto) RARE /LPF 03/26/20 08:30 Urine Ascorbic Acid NEGATIVE (NEGATIVE) 03/26/20 08:30 Urine Opiates Screen NEGATIVE 03/26/20 08:30 Urine Methadone Screen UNCONFIRMED POSITIVE 03/26/20 08:30 Acetaminophen < 10 ug/mL (10-30) L 03/25/20 17:59 Ur Barbiturates Screen NEGATIVE 03/26/20 08:30 Ur Phencyclidine Scrn NEGATIVE 03/26/20 08:30 Ur Amphetamines Screen NEGATIVE 03/26/20 08:30 U Benzodiazepines Scrn NEGATIVE 03/26/20 08:30 Urine Cocaine Screen NEGATIVE 03/26/20 08:30 U Marijuana (THC) Screen NEGATIVE 03/26/20 08:30 Serum Alcohol < 10 mg/dL (NONE DETECTED) 03/25/20 17:59 03/25/20 17:59 Troponin I < 0.012 Impressions: Chest X-Ray 03/25/20 17:58 IMPRESSION: NO ACUTE RADIOGRAPHIC FINDING IN THE CHEST. Stroke Is this a Stroke Patient?: No Acute Heart Failure Is this a Heart Failure Patient?: No
== END 2020-03-29 12:46 | disposition home or self-care (01) | DRG 917 ==
LOC: ER 17:34 → EH 20:18 → INTOOBSV 20:18 → 5 03-26 15:10 → OBSVTOIN 03-27 13:39
PROVIDERS: ADMIT Student in an Organized Health Care Education/Training Program; ATTEND Internal Medicine
PROC: 5A09457 Assistance with Respiratory Ventilation, 24-96 Consecutive Hours, Continuous Positive Airway Pressure (ICD-10-PCS; principal; 2020-03-27)
DX: T40.1X1A Poisoning by heroin, accidental (unintentional), initial encounter (principal); J96.01 Acute respiratory failure with hypoxia; J69.0 Pneumonitis due to inhalation of food and vomit; E87.2 Acidosis; Z68.42 Body mass index [BMI] 45.0-49.9, adult; Z87.820 Personal history of traumatic brain injury; F11.10 Opioid abuse, uncomplicated; E66.01 Morbid (severe) obesity due to excess calories; F17.200 Nicotine dependence, unspecified, uncomplicated; Z82.3 Family history of stroke; Z82.49 Family history of ischemic heart disease and other diseases of the circulatory system; Z83.3 Family history of diabetes mellitus; Z91.040 Latex allergy status; Z88.8 Allergy status to other drugs, medicaments and biological substances; Z91.048 Other nonmedicinal substance allergy status; F31.9 Bipolar disorder, unspecified; Z79.899 Other long term (current) drug therapy; Z87.828 Personal history of other (healed) physical injury and trauma
CPT/HCPCS: 36415; 71045; 80048; 80053; 80307; 81001; 82803; 83605; 83735; 84484; 84703; 85025; 85610; 85730; 87040; 93005; 93010; 94640; 94660; 94667; 94799; G0378; J0571; J0696; J1650; J2405; J2920; J3490; J7030